=== PATIENT | female | born 1960 | race Caucasian/White ===

== ENCOUNTER → 2016-07-26 | Outpatient (CLI) | payer BC ==
[~2016-07-26] MED LIST: ACET-1256 PO; BACL10TA PO; BIOT1CAP3 PO; BUPR-83 PO; BUSP-8 PO; BUSP15TA70 PO; CALC-393 PO; CHOL1TAB42 PO; CHOLCAP2 PO; CITA10TA4 PO; CITA20TA4 PO; CLR10 PO; CYAN1DRO PO; ERGO500037 PO; HYDR25TA4 PO; LAMO150T32 PO; MULTTAB PO; TIZA4CAP PO; ZINC1CAP PO
== END | disposition home or self-care (01) ==
LOC: C.RDSM 12:49
PROVIDERS: ATTEND Physical Medicine & Rehabilitation Sports Medicine
DX: M18.12 Unilateral primary osteoarthritis of first carpometacarpal joint, left hand (principal)

== ENCOUNTER → 2016-09-04 | Outpatient (CLI) | payer BC ==
[~2016-09-04] MED LIST changes: -CITA10TA4 PO; -CITA20TA4 PO
[2016-09-04 16:55] LABS: BASO % 0.5 %; BASO ABS # 0.03 K/uL (0-0.2); COMPLETE YES; EOS % 4.8 %; HEMATOCRIT 39.3 % (37-47); IG% 0.2 %; LYMPH % 27.8 %; LYMPH ABS # 1.69 K/uL (1.2-3.4); MEAN CELL VOLUME 88.3 fL (80-100); MEAN CORPUSCULAR HEMOGLOBIN 28.5 pg (25-34); MEAN CORPUSCULAR HGB CONC 32.3 g/dl (32-36); MEAN PLATELET VOLUME 11.3 fL (7.4-10.4); MONO % 7.2 %; NEUT % 59.5 %; PLATELET COUNT 323 K/uL (130-400); RED BLOOD COUNT 4.45 M/uL (4.2-5.4); WHITE BLOOD COUNT 6.07 K/uL (4.8-10.8)
[2016-09-04 17:10] LABS: ALKALINE PHOSPHATASE 88 U/L (45-117); ALT/SGPT 17 U/L (12-78); AST/SGOT 12 U/L (15-37); BLOOD UREA NITROGEN 12 mg/dl (7-18); CALCIUM 9.3 mg/dl (8.5-10.1); CARBON DIOXIDE 25 mmol/L (21-32); CHLORIDE 106 mmol/L (98-107); CHOLESTEROL 239 mg/dl (0-200); CHOLESTEROL/HDL RATIO 3.3; CREATININE 0.73 mg/dl (0.60-1.20); GLUCOSE 97 mg/dl (70-99); HDL CHOLESTEROL 72 mg/dl; LDL CHOLESTEROL CALCULATED 135 mg/dl; POTASSIUM 3.8 mmol/L (3.5-5.1); SODIUM 139 mmol/L (136-145); TRIGLYCERIDES 160 mg/dl (0-150); VERY LOW DENSITY LIPOPROT CALC 32 mg/dl
[2016-09-05 07:17] LABS: ESTIMATED AVERAGE GLUCOSE 128 mg/dl; HA1C FLAG Normal (Normal)
--- NOTE | 2016-09-10 11:00 | CODING QUERY MEDICAL NECESSITY ---
SUPPORTING DIAGNOSIS NEEDED A supporting diagnosis is required for the test/procedure performed on this patient in order for us to be reimbursed by the patient's insurance. Please provide a supporting diagnosis for the following test/procedure listed below next to the test name along with your signature. *If there is no additional diagnosis for this patient that would support the following test/procedure please document that below next to the test/procedure. Test(s)/Procedure(s) that require a supporting diagnosis: * VITAMIN D, 25-HYDROXY DIAGNOSIS: Provider Signature: Date: Thank you Joelle Tran [employer] Information Management Once completed, please kindly fax back to [phone] For questions please call [phone]
== END | disposition home or self-care (01) ==
LOC: C.LABBC 12:39
PROVIDERS: ATTEND Family Medicine
DX: F10.20 Alcohol dependence, uncomplicated (principal); Z11.59 Encounter for screening for other viral diseases; R73.9 Hyperglycemia, unspecified

== ENCOUNTER 2016-09-08 10:53 | Emergency (ER) | payer BC ==
[~2016-09-08] VITALS: Ht 167.6 cm; Wt 91.0 kg
[~2016-09-08 10:53] MED LIST changes: -BACL10TA PO; -BUSP15TA70 PO; -CHOLCAP2 PO; -ERGO500037 PO; -HYDR25TA4 PO; -LAMO150T32 PO
[2016-09-08 11:02] VITALS: TEMP 36.9; Ht 167.6 cm; Wt 91.0 kg
[2016-09-08] MEDS ORDERED: LAMO150T32 PO (11:36)
[2016-09-08] MEDS ORDERED: HYDR25TA4 PO (11:36)
[2016-09-08] MEDS ORDERED: BACL10TA PO (11:36)
[2016-09-08] MEDS ORDERED: BUSP15TA70 PO (11:36)
[2016-09-08 11:40] VITALS: O2SAT 96
[2016-09-08 12:07] LABS: HEMATOCRIT 40.8 % (37-47); MEAN CELL VOLUME 88.1 fL (80-100); MEAN CORPUSCULAR HEMOGLOBIN 29.6 pg (25-34); MEAN CORPUSCULAR HGB CONC 33.6 g/dl (32-36); MEAN PLATELET VOLUME 11.9 fL (7.4-10.4); PLATELET COUNT 329 K/uL (130-400); RED BLOOD COUNT 4.63 M/uL (4.2-5.4); WHITE BLOOD COUNT 6.88 K/uL (4.8-10.8)
--- NOTE | 2016-09-08 12:07 | DIAGNOSTIC IMAGING REPORT ---
HEAD WITHOUT CONTRAST (CT) CT DOSE: 537.48 mGy.cm HISTORY: Mental status change neuro symptoms TECHNIQUE: Multiaxial CT images of the head were performed without the use of intravenous contrast. Comparison: 09/18/2010 Findings: The paranasal sinuses and mastoid air cells are clear. The calvarium and skull base are intact. The ventricles and sulci are within normal limits. There is no mass, hematoma, midline shift, or acute infarct. Impression: No acute intracranial abnormality. The above report was generated using voice recognition software. It may contain grammatical, syntax or spelling errors. Electronically signed by: Mook Zapien M.D. 09/08/2016 12:06 PM Dictated Date/Time: 09/08/2016 12:05 PM
[2016-09-08 12:16] LABS: BUN/CREATININE RATIO 20.4 (10-20); CALCIUM 9.5 mg/dl (8.5-10.1); CREATININE 0.66 mg/dl (0.60-1.20); POTASSIUM 4.2 mmol/L (3.5-5.1)
[2016-09-08 12:18] LABS: ALB/GLOB RATIO 1.1 (0.9-2)
[2016-09-08] MEDS ORDERED: ACETAMINOPHEN 500 MG TAB PO STA (12:19)
[2016-09-08 12:20] LABS: INR 0.9 (0.9-1.1); PROTHROMBIN TIME (PATIENT) 9.8 SECONDS (9.0-12.0)
[2016-09-08 12:26] VITALS: BP 157/107; PULSE 71; O2SAT 98
--- NOTE | 2016-09-08 12:39 | EMERGENCY ROOM VISIT NOTE ---
History Report prepared by Joy: Kait Olguin Under the Supervision of: Dr. Sarbjit Coleman D.O. First contact with patient: 12:09 Chief Complaint: NEURO SYMPTOMS Stated Complaint: FACIAL NUMBNESS,DIZZINESS,TINGLING History of Present Illness The patient is a 56 year old female who presents to the Emergency Room with complaints of constant neurological symptoms beginning this morning. The patient states that she woke up this morning and her left hand was twitching uncontrollably and the right hand began twitching shortly after. She reports that she felt fine last night and her symptoms all began after waking up this morning. She complains of tingling in the left hand, left facial tingling, confusion, instability with walking, and difficulty grasping things. The patient denies any numbness. She notes a history of hypertension, laminectomy, nerve impingement, and carpal tunnel. She states that she takes Hydrochlorothiazide for her hypertension. The patient reports that she had a physical 1 week ago that was normal. She notes that walking has been difficult as she is more wobbly than normal. Source of History: patient Onset: this morning Position: other (neuro) Quality: tingling Timing: constant Associated Symptoms: No numbness Note: She complains of tingling in the left hand, left facial tingling, confusion, instability with walking, and difficulty grasping things. Review of Systems See HPI for pertinent positives & negatives. A total of 10 systems reviewed and were otherwise negative. Past Medical & Surgical Medical Problems: (1) Alcohol dependence (2) Borderline personality disorder (3) Diab Sofia Wo Compl, Type Ii Or Unspec Type, Not Uncntrld (4) Esophageal Reflux (5) Mitral valve regurgitation (6) Tobacco Use Disorder Surgical Problems: (1) Bariatric Surgery Status Family History Cancer Diabetes mellitus FHx: lung disease Social History Smoking Status: Current Every Day Smoker Alcohol Use: occasionally Drug Use: none Marital Status: single Occupation Status: employed Current/Historical Medications Scheduled Baclofen (Lioresal), 10 MG PO BID Biotin (Biotin), 5,000 MCG PO DAILY Bupropion (Wellbutrin), 100 MG PO TID Buspirone Hcl (Buspar), 15 MG PO BID Calcium Carbonate (Calcium), 600 MG PO BID Cyanocobalamin (Vitamin B12), 5 ML PO DAILY Hydrochlorothiazide (Hctz), 25 MG PO DAILY Lamotrigine (Lamictal), 150 MG PO DAILY Loratadine (Claritin), 10 MG PO DAILY Multivitamins/Minerals (Mvi With Minerals), 1 TAB PO DAILY Zinc Sulfate (Zinc Sulfate), 220 MG PO DAILY Scheduled PRN Acetaminophen (Tylenol), 1,000 MG PO Q6 PRN for Pain Allergies Coded Allergies: Quinolones (Verified Allergy, Unknown, UNKNOWN, 07/13/15) Sulfa Antibiotics (Unverified Allergy, Unknown, UNKNOWN, 07/13/15) Codeine (Verified Adverse Reaction, Unknown, AGITATION, IRRITABILITY, 07/12) NSAIDs (Verified Adverse Reaction, Unknown, BLEEDING, 07/13/15) Physical Exam Vital Signs Date Time Temp Pulse Resp B/P (MAP) Pulse Ox O2 Delivery O2 Flow Rate FiO2 09/08/16 12:26 71 18 157/107 98 Room Air 09/08/16 11:55 68 09/08/16 11:40 96 Room Air 09/08/16 11:02 36.9 65 18 147/82 94 Room Air Physical Exam VITAL SIGNS: were reviewed as above. GENERAL:Non-toxic in appearance. SKIN: Warm dry and pink. HEAD: Normocephalic and atraumatic. OROPHARYNX: Is clear and moist NECK: Supple without lymphadenopathy or meningismus. LUNGS: clear. HEART: Regular rate and rhythm. ABDOMEN: Soft and nontender. EXTREMITIES: Warm and well perfused. NEUROLOGICALLY: Awake alert and oriented without focal deficit. Cranial nerves 2 -12 are intact. There is no pronator drift. Cerebellar testing is within normal limits. There is no nystagmus. There is no facial droop. Speech is clear. Vision is grossly normal. MUSCULOSKELETAL: Good muscle tone. No evidence of trauma. Medical Decision & Procedures ER Provider Diagnostic Interpretation: CT results as stated below per my review and radiologist interpretation: HEAD WITHOUT CONTRAST (CT) Findings: The paranasal sinuses and mastoid air cells are clear. The calvarium and skull base are intact. The ventricles and sulci are within normal limits. There is no mass, hematoma, midline shift, or acute infarct. Impression: No acute intracranial abnormality. The above report was generated using voice recognition software. It may contain grammatical, syntax or spelling errors. Electronically signed by: Mook Zapien M.D. 09/08/2016 12:06 PM Dictated Date/Time: 09/08/2016 12:05 PM Laboratory Results 09/08/16 11:26 09/08/16 11:26 Test 09/08/16 11:18 09/08/16 11:26 Bedside Glucose 126 mg/dl (70-90) Red Blood Count 4.63 M/uL (4.2-5.4) Mean Corpuscular Volume 88.1 fL (80-100) Mean Corpuscular Hemoglobin 29.6 pg (25-34) Mean Corpuscular Hemoglobin Concent 33.6 g/dl (32-36) RDW Standard Deviation 52.4 fL (36.4-46.3) RDW Coefficient of Variation 16.1 % (11.5-14.5) Mean Platelet Volume 11.9 fL (7.4-10.4) Prothrombin Time 9.8 SECONDS (9.0-12.0) Prothromb Time International Ratio 0.9 (0.9-1.1) Activated Partial Thromboplast Time 25.0 SECONDS (21.0-31.0) Partial Thromboplastin Ratio 1.0 Anion Gap 7.0 mmol/L (3-11) Est Creatinine Clear Calc Drug Dose 106.8 ml/min Estimated GFR () 113.7 Estimated GFR (Non- 98.1 BUN/Creatinine Ratio 20.4 (10-20) Calcium Level 9.5 mg/dl (8.5-10.1) Total Bilirubin 0.3 mg/dl (0.2-1) Aspartate Amino Transf (AST/SGOT) 16 U/L (15-37) Alanine Aminotransferase (ALT/SGPT) 19 U/L (12-78) Alkaline Phosphatase 102 U/L (45-117) Total Protein 7.6 gm/dl (6.4-8.2) Albumin 3.9 gm/dl (3.4-5.0) Globulin 3.7 gm/dl (2.5-4.0) Albumin/Globulin Ratio 1.1 (0.9-2) Laboratory results as stated above per my review. Medications Administered Medications (Trade) Dose Ordered Sig/Kim Route Start Time Stop Time Status Last Admin Dose Admin Acetaminophen (Tylenol Tab) 1,000 mg NOW STAT PO 09/08/16 12:19 09/08/16 12:20 DC 09/08/16 12:25 1,000 MG ECG Indication: weakness Rate (beats per minute): 64 Rhythm: normal sinus Findings: no acute ischemic change, no ectopy ED Course 1209: Previous medical records were reviewed. The patient was evaluated in room A2. A complete history and physical examination was performed. 1219: Tylenol Tab 1000mg PO. 1245: On reevaluation, the patient is doing well. I discussed the results and findings with the patient. She verbalized agreement of the treatment plan. The patient was discharged home. Medical Decision Differential includes acute coronary syndrome, myocardial infarction, CVA, TIA, anemia, infection, pneumonia, UTI, pyelonephritis, poor nutrition, dehydration, electrolyte disturbance,hypoglycemia. Medication Reconciliation: I attest that I have personally reviewed the patient' s current medication list. Patient was found to have a slightly elevated blood pressure due to circumstances. I do not believe that the patient requires hypertension monitoring. This is a 56-year-old female who presents to the ED with a chief complaint of awakening around 7 AM today and having some uncontrollable/involuntary movements of her left hand. She states that it was extending at the wrist. She also reports that she had some tingling of the hand and also a little tingling of her right arm. She reports also some tingling of her left face. She came in for evaluation of this. Her initial blood pressure was 147/82. A complete neuro exam was unremarkable. She has a normal exam as well. Her CBC is normal, CT scan of the brain was negative for acute disease, EKG shows a normal sinus rhythm and a complete metabolic panel was normal. The patient was told the results of the test. She was given Tylenol by mouth for headache related to her head being bumped while she is being placed in the CT scanner. There is no obvious visible abnormalities regarding this. The patient was offered an MRI for further evaluation of her symptoms but she declined this stating she did not feel was necessary. The patient was felt to be stable for discharge and outpatient follow-up. Impression Primary Impression: Paresthesia Scribe Attestation The scribe's documentation has been prepared under my direction and personally reviewed by me in its entirety. I confirm that the note above accurately reflects all work, treatment, procedures, and medical decision making performed by me. Departure Information Dispostion Home / Self-Care Referrals Sonya Ruiz MD (PCP) Forms HOME CARE DOCUMENTATION FORM, IMPORTANT VISIT INFORMATION, WORK / SCHOOL INSTRUCTIONS Patient Instructions My [facility] Additional Instructions Follow-up with your doctor for further care and evaluation in 1-2 days. Return to the emergency department for worsening or new symptoms or any concerns. You have been examined and treated today on an emergency basis only. This is not a substitute for, or an effort to provide, complete comprehensive medical care. It is impossible to recognize and treat all injuries or illnesses in a single emergency department visit. It is therefore important that you follow up closely with your doctor. Call as soon as possible for an appointment.
[2016-09-08] MEDS ORDERED: NORCO 5/325MG HOME PACK PO ONE (13:00)
== END 2016-09-08 13:11 | disposition home or self-care (01) ==
LOC: C.EDB 10:54 → C.EDA 13:11
DX: R20.9 Unspecified disturbances of skin sensation (principal); I10 Essential (primary) hypertension; E11.9 Type 2 diabetes mellitus without complications; K21.9 Gastro-esophageal reflux disease without esophagitis; F10.20 Alcohol dependence, uncomplicated; I34.0 Nonrheumatic mitral (valve) insufficiency; F17.210 Nicotine dependence, cigarettes, uncomplicated; Z80.9 Family history of malignant neoplasm, unspecified; Z83.3 Family history of diabetes mellitus; Z83.6 Family history of other diseases of the respiratory system; Z79.899 Other long term (current) drug therapy

== ENCOUNTER → 2016-09-12 | Outpatient (CLI) | payer BC ==
[~2016-09-12] MED LIST changes: +BACL10TA PO; -BUSP-8 PO; +BUSP15TA70 PO; -CHOL1TAB42 PO; +CHOLCAP2 PO; +ERGO500037 PO; +HYDR25TA4 PO; +LAMO150T32 PO; -TIZA4CAP PO
[2016-09-12 11:20] LABS: URINE APPEARANCE CLEAR (CLEAR); URINE BILIRUBIN NEG (NEG); URINE COLOR YELLOW; URINE NITRITE NEG (NEG); URINE SPECIFIC GRAVITY 1.015 (1.000-1.030); UROBILINOGEN NEG (NEG)
[2016-09-12 11:21] LABS: MANUAL MICROSCOPIC REQUIRED? YES; REVIEW REQ? NO
[2016-09-12 11:35] LABS: URINE BACTERIA 1+ (NEG); URINE RBC 0-4 /hpf (0-4)
[2016-09-16 07:16] LABS: ANTI-CENTROMERE AB <1.0 NEG AI (<1.0 NEG); ANTI-SS-A <1.0 NEG AI (<1.0 NEG); ANTI-SS-B <1.0 NEG AI (<1.0 NEG); DNA ds CRITHIDIA NEGATIVE (NEGATIVE); Sm Antibody <1.0 NEG AI (<1.0 NEG)
== END | disposition home or self-care (01) ==
LOC: C.LAB1850 09:28
PROVIDERS: ATTEND Internal Medicine Rheumatology
DX: R68.2 Dry mouth, unspecified (principal); M25.50 Pain in unspecified joint; M19.041 Primary osteoarthritis, right hand

== ENCOUNTER 2016-11-26 10:58 | Emergency (ER) | payer BC ==
[~2016-11-26] VITALS: Ht 162.6 cm; Wt 90.4 kg
[~2016-11-26 10:58] MED LIST changes: -ERGO500037 PO
[2016-11-26 11:01] VITALS: TEMP 36.8; Ht 162.6 cm; Wt 90.4 kg
[2016-11-26] MEDS ORDERED: ERGO500037 PO (11:28)
--- NOTE | 2016-11-26 11:47 | DIAGNOSTIC IMAGING REPORT ---
CHEST ONE VIEW PORTABLE CLINICAL HISTORY: 56 years-old Female presenting with syncope. TECHNIQUE: Portable upright AP view of the chest was obtained. COMPARISON: 06/25/2015. FINDINGS: Atherosclerosis of aortic arch. Cardiac silhouette normal in size. Lungs and pleural spaces clear. Anterior cervical fusion hardware noted at the base of the neck. IMPRESSION: 1. No acute cardiopulmonary disease. Electronically signed by: Gregory Raya M.D. 11/26/2016 11:46 AM Dictated Date/Time: 11/26/2016 11:45 AM
[2016-11-26] MEDS ORDERED: SODIUM CHLORIDE 0.9% 1000ML 1,000 ML IV STA (11:58)
[2016-11-26 12:31] LABS: BASO % 0.3 %; BASO ABS # 0.04 K/uL (0-0.2); COMPLETE YES; EOS % 0.5 %; HEMATOCRIT 39.7 % (37-47); IG% 0.2 %; LYMPH ABS # 1.58 K/uL (1.2-3.4); MEAN CELL VOLUME 86.7 fL (80-100); MEAN CORPUSCULAR HEMOGLOBIN 29.7 pg (25-34); MEAN CORPUSCULAR HGB CONC 34.3 g/dl (32-36); MEAN PLATELET VOLUME 10.6 fL (7.4-10.4); MONO % 6.3 %; NEUT % 79.7 %; PLATELET COUNT 327 K/uL (130-400); RED BLOOD COUNT 4.58 M/uL (4.2-5.4); WHITE BLOOD COUNT 12.14 K/uL (4.8-10.8)
[2016-11-26] MEDS ORDERED: MoRPHine SULFATE 4 MG/ML 1 ML CARP\\VIAL IV STA (12:33)
[2016-11-26] MEDS ORDERED: ONDANSETRON INJ 2 MG/ML 2 ML VIAL IV STA (12:33)
[2016-11-26 12:59] LABS: ALB/GLOB RATIO 0.9 (0.9-2); BUN/CREATININE RATIO 21.9 (10-20); CREATININE 0.63 mg/dl (0.60-1.20); THYROID STIMULATING HORMONE 0.934 uIu/ml (0.300-4.500)
[2016-11-26 13:02] LABS: POTASSIUM 3.9 mmol/L (3.5-5.1)
[2016-11-26 13:10] LABS: CKMB/CK RATIO 1.6 (0-3.0)
[2016-11-26 13:12] LABS: CALCIUM 9.2 mg/dl (8.5-10.1)
--- NOTE | 2016-11-26 13:14 | DIAGNOSTIC IMAGING REPORT ---
CERVICAL SPINE W/O CLINICAL HISTORY: 56 years-old Female presenting with CHI/MENDEZ/neck pain s/p syncope. TECHNIQUE: Multidetector CT of the cervical spine was performed without the use of intravenous contrast. IV contrast: None. A dose lowering technique was used consistent with the principles of ALARA (as low as reasonably achievable). COMPARISON: 07/13/2015. CT DOSE (mGy.cm): The estimated cumulative dose is 1023.91. FINDINGS: [employer] topogram: Anterior cervical fusion hardware noted. Slight reversal of normal cervical lordosis centered at C4-5. Postsurgical changes of anterior cervical discectomy and fusion of C5-C7. Interbody spacers noted. Partial osseous fusion evident at C5-6. A lesser degree of osseous fusion may be present anteriorly at C6-7. Again demonstrated is minimal anterolisthesis of C7 on T1. Adjacent level degenerative changes noted at C4-5 and C7-T1. No significant osseous spinal canal or neural foraminal narrowing noted. No acute fracture or subluxation. Limited intracranial evaluation within normal limits. Paraspinal soft tissues within normal limits. Lung apices clear. IMPRESSION: Anterior cervical fusion of C5-C7 with incomplete osseous bridging at C6-7. Adjacent level degenerative change at C4-5 and C7-T1. No significant osseous spinal canal or neural foraminal narrowing. Electronically signed by: Gregory Raya M.D. 11/26/2016 1:12 PM Dictated Date/Time: 11/26/2016 1:05 PM
--- NOTE | 2016-11-26 13:14 | DIAGNOSTIC IMAGING REPORT ---
HEAD CT NONCONTRAST CT DOSE: 1023.91 mGy.cm HISTORY: CHI/headache/neck pain s/p syncope TECHNIQUE: Multiaxial CT images of the head were performed without the use of intravenous contrast. Automated exposure control was utilized for this study. A dose lowering technique was utilized adhering to the principles of ALARA. Comparison: Head CT 09/08/2016. Findings: The paranasal sinuses and mastoid air cells are clear. The calvarium and skull base are intact. The ventricles and sulci are within normal limits. There is no mass, hematoma, midline shift, or acute infarct. Nasal bone deformity. Impression: No acute intracranial abnormality. Nasal bone deformity. This is better appreciated on the same day maxillofacial CT. Electronically signed by: Gerber Alonzo M.D. 11/26/2016 1:13 PM Dictated Date/Time: 11/26/2016 1:03 PM
--- NOTE | 2016-11-26 13:16 | DIAGNOSTIC IMAGING REPORT ---
MAXILLOFACIAL CT WITHOUT CONTRAST CLINICAL HISTORY: Syncope. Headache. Head injury. Fall. COMPARISON STUDY: Maxillofacial CT May 29, 2009. TECHNIQUE: A maxillofacial CT was performed without IV contrast. Coronal and sagittal reformats were viewed. A dose lowering technique was utilized adhering to the principles of ALARA. FINDINGS: The globes are intact. There is no retrobulbar hematoma. Minimally displaced right nasal bone fracture is noted. There is a nondisplaced left nasal bone fracture. These fractures are likely acute. There is also an old fracture of the nasal bone. Orbital floors are intact. Alignment of the temporomandibular joints is anatomic. Cervical spine fusion is partially imaged. No skull base fracture is identified. Head CT will be reported separately. IMPRESSION: 1. Acute minimally displaced right nasal bone fracture and acute nondisplaced left nasal bone fracture with associated nasal soft tissue swelling. 2. No additional acute facial fracture. Electronically signed by: Romie Olivas M.D. 11/26/2016 1:14 PM Dictated Date/Time: 11/26/2016 1:08 PM
[2016-11-26 13:34] LABS: URINE APPEARANCE CLEAR (CLEAR); URINE BILIRUBIN NEG (NEG); URINE COLOR YELLOW; URINE EPITHELIAL CELL AUTO >30 /lpf (0-5); URINE NITRITE NEG (NEG); URINE SPECIFIC GRAVITY 1.021 (1.000-1.030); UROBILINOGEN NEG (NEG); ZZUR CULT IF INDIC CLEAN CATCH NO
[2016-11-26 13:38] LABS: MANUAL MICROSCOPIC REQUIRED? NO; REVIEW REQ? NO
--- NOTE | 2016-11-26 15:09 | EMERGENCY ROOM VISIT NOTE ---
ED Visit Note First contact with patient: 11:39 I did evaluate and examine this patient myself. I did guide management for the patient. I agree with the APC's assessment as discussed. Please see the APC's dictation for further details. I did independently review the x-rays, CT scan, 12-lead EKG and blood work. The patient did pass out while on the toilet. She had no prodromal symptoms and simply passed out. Currently she has no symptoms. We will consult the hospitalist for further evaluation.
[2016-11-26 16:22] VITALS: BP 138/85; PULSE 88; O2SAT 93
--- NOTE | 2016-11-26 22:08 | EMERGENCY ROOM VISIT NOTE ---
History First contact with patient: 11:39 Chief Complaint: SYNCOPE Stated Complaint: FELL ON HEAD, MAY HAVE PASSED OUT, NOSE PAIN Nursing Triage Summary: PT stated while sitting on the toilet this morning having a bowel movement the pt fell off her toilet. The pt stated that she woke up on the floor and her nose was bleeding. Pt does not remember falling. Pts nose is swollen with bruising to her cheeks. Pts mouth is bloody on the inside. Pt states she has a headache a 7 out of 10 on pain scale. Pt does have a neurological issue with numbness to left arm. Pt was able to answer questions appropriately and stroke scale was negative. History of Present Illness The patient is a 56 year old female who presents to the Emergency Room with complaints of a syncopal episode with injuries to her face, head and neck after she fell off of her toilet this morning. The patient does recall getting up and going to the bathroom. She was having a bowel movement that she reports was really soft, and does not feel that she was really bearing down. The next thing that the patient recalls is laying in a prone position on the floor with left facial pain, headache and neck pain. The patient does report a history of chronic neck problems. The patient reports that she felt fine last night before going to bed. The patient reports that she has had some sinus congestion for the past 3-4 days with postnasal drip, mild sore throat and irritating cough. She denies any recent chest pain, shortness of breath, chronic headaches or dizziness. At the current time, the patient rates her discomfort an 8 out of 10. She does report feeling thirsty and with mild nausea. Tetanus immunization is up-to-date. Review of Systems HEENT: Denies dizziness, visual problems, hearing loss, tinnitus. Denies difficulty swallowing or oral lesions. PULMONARY: Denies shortness of breath, sputum production or hemoptysis. Otherwise see history of present illness for recent upper respiratory symptoms. CARDIOVASCULAR: Denies chest pain, palpitations, dyspnea on exertion, orthopnea or peripheral edema. GASTROINTESTINAL: Denies preceding diarrhea, constipation, nausea, vomiting, or abdominal pain. GENITOURINARY: Denies dysuria, frequency, urgency or nocturia. NEUROLOGIC: Denies history of epilepsy, CVA, TIA or chronic headaches. MUSCULOSKELETAL: Denies history of joint tenderness/swelling. SKIN: Denies rashes or lesions. PSYCHIATRIC: History of mental illness. ENDOCRINE: history of diabetes. Denies history of thyroid disorders. Past Medical/Surgical History Medical Problems: (1) Alcohol dependence (2) Borderline personality disorder (3) Diab Sofia Wo Compl, Type Ii Or Unspec Type, Not Uncntrld (4) Esophageal Reflux (5) Mitral valve regurgitation (6) Tobacco Use Disorder Surgical Problems: (1) Bariatric Surgery Status Family History Cancer Diabetes mellitus FHx: lung disease Social History Smoking Status: Current Every Day Smoker Alcohol Use: occasionally Drug Use: none Marital Status: single Occupation Status: retired, disabled, student Current/Historical Medications Scheduled Baclofen (Lioresal), 10 MG PO BID Biotin (Biotin), 5,000 MCG PO DAILY Bupropion (Wellbutrin), 100 MG PO TID Buspirone Hcl (Buspar), 15 MG PO BID Calcium Carbonate (Calcium), 600 MG PO BID Cyanocobalamin (Vitamin B12), 5 ML PO DAILY Ergocalciferol (Vitamin D 43340 Unit), 50,000 UNIT PO WK Hydrochlorothiazide (Hctz), 25 MG PO DAILY Lamotrigine (Lamictal), 150 MG PO DAILY Loratadine (Claritin), 10 MG PO DAILY Multivitamins/Minerals (Mvi With Minerals), 1 TAB PO DAILY Zinc Sulfate (Zinc Sulfate), 220 MG PO DAILY Scheduled PRN Acetaminophen (Tylenol), 1,000 MG PO Q6 PRN for Pain Physical Exam Vital Signs Date Time Temp Pulse Resp B/P (MAP) Pulse Ox O2 Delivery O2 Flow Rate FiO2 11/26/16 16:22 88 20 138/85 93 11/26/16 14:45 87 20 154/89 95 Room Air 11/26/16 12:44 88 20 141/107 97 Room Air 11/26/16 12:21 77 161/88 85 159/102 83 140/105 11/26/16 12:20 82 11/26/16 11:01 36.8 102 18 149/91 95 Room Air Physical Exam CONSTITUTIONAL: Healthy and well nourished. Alert and oriented X 3 with positive affect. GCS 15. The patient does not appear in any acute distress. HEENT: Examination shows an abrasion to the left zygomatic region. She has mild tenderness to this region, inferior and superior left orbital program. No subconjunctival hemorrhage, raccoon's eyes or Carrasco sign. No hemotympanum or epistaxis. Pupils equal, round and reactive. EOMs intact without evidence for entrapment. NECK: The patient has generalized tenderness to palpation through the cervical musculature. She has no focal central cervical spine tenderness to palpation or step-offs.. RESPIRATORY: Clear to auscultation bilaterally with no wheezing, crackles, rhonchi or stridor. CARDIOVASCULAR: Regular rate and rhythm with no murmurs, rubs or gallops. GASTROINTESTINAL: Bowel sounds present in all quadrants. Soft and nontender to palpation. MUSCULOSKELETAL: Full range of motion of all joints without discomfort. INTEGUMENTARY: No rash or other significant dermatologic conditions noted. NEUROLOGIC: No focal neurologic deficits noted. Negative pronator drift. Normal fast alternating hand movements. Normal finger to nose test. Medical Decision & Procedures ER Provider Diagnostic Interpretation: My interpretation of an ECG shows a normal sinus rhythm of [address] elevation or ischemic changes. My interpretation of a portable chest x-ray does not show any consolidations, pneumothorax or cardiac prominence. Noncontrast CT of the facial bones, head and cervical spine was bilateral nasal bone fractures without any evidence for skull fractures, intracranial bleed or other acute cervical spine injuries. Radiologist report for facial bone CT is as follows: MAXILLOFACIAL CT WITHOUT CONTRAST CLINICAL HISTORY: Syncope. Headache. Head injury. Fall. COMPARISON STUDY: Maxillofacial CT May 29, 2009. TECHNIQUE: A maxillofacial CT was performed without IV contrast. Coronal and sagittal reformats were viewed. A dose lowering technique was utilized adhering to the principles of ALARA. FINDINGS: The globes are intact. There is no retrobulbar hematoma. Minimally displaced right nasal bone fracture is noted. There is a nondisplaced left nasal bone fracture. These fractures are likely acute. There is also an old fracture of the nasal bone. Orbital floors are intact. Alignment of the temporomandibular joints is anatomic. Cervical spine fusion is partially imaged. No skull base fracture is identified. Head CT will be reported separately. IMPRESSION: 1. Acute minimally displaced right nasal bone fracture and acute nondisplaced left nasal bone fracture with associated nasal soft tissue swelling. 2. No additional acute facial fracture. Laboratory Results 11/26/16 12:10 Red Blood Count 4.58, Mean Corpuscular Volume 86.7, Mean Corpuscular Hemoglobin 29.7, Mean Corpuscular Hemoglobin Concent 34.3, Mean Platelet Volume 10.6, Neutrophils (%) (Auto) 79.7, Lymphocytes (%) (Auto) 13.0, Monocytes (%) (Auto) 6.3, Eosinophils (%) (Auto) 0.5, Basophils (%) (Auto) 0.3, Neutrophils # (Auto) 9.68, Lymphocytes # (Auto) 1.58, Monocytes # (Auto) 0.76, Eosinophils # (Auto) 0.06, Basophils # (Auto) 0.04 11/26/16 12:10 Test 11/26/16 12:10 11/26/16 12:18 11/26/16 12:49 White Blood Count 12.14 K/uL (4.8-10.8) Red Blood Count 4.58 M/uL (4.2-5.4) Hemoglobin 13.6 g/dL (12.0-16.0) Hematocrit 39.7 % (37-47) Mean Corpuscular Volume 86.7 fL (80-100) Mean Corpuscular Hemoglobin 29.7 pg (25-34) Mean Corpuscular Hemoglobin Concent 34.3 g/dl (32-36) Platelet Count 327 K/uL (130-400) Mean Platelet Volume 10.6 fL (7.4-10.4) Neutrophils (%) (Auto) 79.7 % Lymphocytes (%) (Auto) 13.0 % Monocytes (%) (Auto) 6.3 % Eosinophils (%) (Auto) 0.5 % Basophils (%) (Auto) 0.3 % Neutrophils # (Auto) 9.68 K/uL (1.4-6.5) Lymphocytes # (Auto) 1.58 K/uL (1.2-3.4) Monocytes # (Auto) 0.76 K/uL (0.11-0.59) Eosinophils # (Auto) 0.06 K/uL (0-0.5) Basophils # (Auto) 0.04 K/uL (0-0.2) RDW Standard Deviation 51.3 fL (36.4-46.3) RDW Coefficient of Variation 16.2 % (11.5-14.5) Immature Granulocyte % (Auto) 0.2 % Immature Granulocyte # (Auto) 0.02 K/uL (0.00-0.02) Anion Gap 11.0 mmol/L (3-11) Est Creatinine Clear Calc Drug Dose 107.3 ml/min Estimated GFR () 115.4 Estimated GFR (Non- 99.6 BUN/Creatinine Ratio 21.9 (10-20) Calcium Level 9.2 mg/dl (8.5-10.1) Total Bilirubin 0.4 mg/dl (0.2-1) Aspartate Amino Transf (AST/SGOT) 17 U/L (15-37) Alanine Aminotransferase (ALT/SGPT) 20 U/L (12-78) Alkaline Phosphatase 95 U/L (45-117) Total Creatine Kinase 74 U/L (26-192) Creatine Kinase MB 1.2 ng/ml (0.5-3.6) Creatine Kinase MB Ratio 1.6 (0-3.0) Total Protein 7.4 gm/dl (6.4-8.2) Albumin 3.6 gm/dl (3.4-5.0) Globulin 3.8 gm/dl (2.5-4.0) Albumin/Globulin Ratio 0.9 (0.9-2) Thyroid Stimulating Hormone (TSH) 0.934 uIu/ml (0.300-4.500) Bedside Troponin I < 0.030 ng/ml (0-0.045) Urine Color YELLOW Urine Appearance CLEAR (CLEAR) Urine pH 5.0 (4.5-7.5) Urine Specific Bruner 1.021 (1.000-1.030) Urine Protein NEG (NEG) Urine Glucose (UA) NEG (NEG) Urine Ketones 1+ (NEG) Urine Occult Blood NEG (NEG) Urine Nitrite NEG (NEG) Urine Bilirubin NEG (NEG) Urine Urobilinogen NEG (NEG) Urine Leukocyte Esterase NEG (NEG) Urine WBC (Auto) 1-5 /hpf (0-5) Urine RBC (Auto) 0-4 /hpf (0-4) Urine Hyaline Casts (Auto) 5-10 /lpf (0-5) Urine Epithelial Cells (Auto) >30 /lpf (0-5) Urine Bacteria (Auto) NEG (NEG) The above labs were reviewed. The above labs were reviewed. The patient does have a mild leukocytosis with left shift and without bandemia. Bedside troponin , urinalysis, partial renal profile, LFTs are otherwise grossly normal. Patient is mildly hyponatremic at 134. Medications Administered Medications (Trade) Dose Ordered Sig/Kim Route Start Time Stop Time Status Last Admin Dose Admin Sodium Chloride 1,000 ml @ 999 mls/hr Q1H1M STAT IV 11/26/16 11:58 11/26/16 12:58 DC 11/26/16 12:41 999 MLS/HR Morphine Sulfate (MoRPHine SULFATE INJ) 4 mg NOW STAT IV 11/26/16 12:33 11/26/16 12:34 DC 11/26/16 12:42 4 MG Ondansetron HCl (Zofran Inj) 4 mg NOW STAT IV 11/26/16 12:33 11/26/16 12:34 DC 11/26/16 12:41 4 MG Procedure 1. IV hydration: The patient received a liter normal saline bolus 2. IV medications: Morphine 4 mg and Zofran 4 mg IVP ED Course Patient history and physical exam were performed. Nurse's notes were reviewed. Vital signs were reviewed, showing an elevated blood pressure 149/91. Patient is mildly tachycardic at 102 bpm. She is afebrile, and O2 saturation on room air is normal. The patient does not appear in any acute distress. She clinically appears dehydrated. Orthostatic vital signs were marginal as well. IV access was established, and labs were drawn. The patient was hydrated with a liter normal saline, and received IV analgesics and antiemetics as discussed in the previous Procedure section. Review of labs shows a mild leukocytosis with left shift and without bandemia. She is also mildly hyponatremic. Remaining labs are otherwise grossly normal, including troponin. An ECG and portable chest x-ray were normal. CT of the facial bones, head and cervical spine shows mild bilateral nasal bone fractures, otherwise were also normal. The patient reports feeling better with IV morphine and hydration. The case was discussed with Dr. Colin, ED attending physician, who also evaluated the patient, and is concerned regarding her abrupt syncopal episode. He suggested hospitalist evaluation and further cardiac workup. I went back to discuss our concerns with the patient. The patient refused hospitalist evaluation, observation/admission status. The patient reports that she would rather follow up outpatient with cardiology. The patient reports that she did have a normal stress test approximately 3 years ago. I again explained my concern for possible cardiac dysrhythmia or ischemic syncope, and the patient continued to request discharge. The patient was provided contact information for [facility] cardiology, and instructed to call their office tomorrow for urgent follow-up. She was instructed to return to the emergency department for any developing symptoms or recurrent syncope. She was instructed to remain well-hydrated and drink plenty of fluids. She was also instructed to follow-up with ENT with any persistent sinus congestion or difficulty breathing secondary to her nasal bone fractures. Intermittent ice as needed for swelling. The patient was happy with plan of care, and voiced understanding of all discharge instructions. Medical Decision Patient presents to the emergency department for evaluation of injuries after suffering a syncopal episode while sitting on her toilet this morning with a bowel movement. Although vasovagal syncope is suspected, ischemic syncope or other cardiac dysrhythmia cannot be ruled out, and it was suggested that the patient undergo further inpatient evaluation. The patient is refusing hospitalist evaluation, and requested outpatient cardiology follow-up. The patient does not have any ischemic findings on monitor or ECG. She is Dinorah hyponatremic, which I do not feel as her syncope. She has had recent upper respiratory infection, explaining her mild leukocytosis. Her imaging studies at this point are not suggestive of intracranial bleed, CVA, aortic dissection or other acute emergent findings. [place] Drug Monitoring Program Search Results: patient reviewed within database, no issues identified Head Trauma GCS Score: 15 Medication Reconcilliation Current Medication List: was personally reviewed by me Blood Pressure Screening Patient's blood pressure: Normal blood pressure Impression Primary Impression: Nasal bone fractures Additional Impression: Syncope Departure Information Referrals Sonya Ruiz MD (PCP) Patient Instructions My [facility] Problem Qualifiers Primary Impression: Nasal bone fractures Encounter type: initial encounter Fracture type: closed Qualified Codes: S02.2XXA - Fracture of nasal bones, initial encounter for closed fracture Additional Impression: Syncope Syncope type: unspecified Qualified Codes: R55 - Syncope and collapse
== END 2016-11-26 16:23 | disposition home or self-care (01) ==
LOC: C.EDB 11:00 → C.EDC 16:23
DX: S02.2XXA Fracture of nasal bones, initial encounter for closed fracture (principal); W18.11XA Fall from or off toilet without subsequent striking against object, initial encounter; R55 Syncope and collapse; M54.2 Cervicalgia; G89.29 Other chronic pain; F10.20 Alcohol dependence, uncomplicated; F60.3 Borderline personality disorder; E11.9 Type 2 diabetes mellitus without complications; K21.9 Gastro-esophageal reflux disease without esophagitis; I34.0 Nonrheumatic mitral (valve) insufficiency; F17.210 Nicotine dependence, cigarettes, uncomplicated; Z98.84 Bariatric surgery status; Z80.9 Family history of malignant neoplasm, unspecified; Z83.3 Family history of diabetes mellitus; Z79.899 Other long term (current) drug therapy; E87.1 Hypo-osmolality and hyponatremia

== ENCOUNTER → 2016-12-05 | Outpatient (CLI) | payer BC ==
[~2016-12-05] MED LIST changes: -CHOLCAP2 PO; +ERGO500037 PO
== END | disposition home or self-care (01) ==
LOC: C.MAMM 09:06
PROVIDERS: ATTEND Family Medicine
DX: E89.40 Asymptomatic postprocedural ovarian failure (principal); M85.851 Other specified disorders of bone density and structure, right thigh; M85.852 Other specified disorders of bone density and structure, left thigh

== ENCOUNTER → 2017-01-06 | Outpatient (CLI) | payer BC ==
[~2017-01-06] MED LIST changes: +CITA10TA4 PO
--- NOTE | 2017-01-06 16:07 | DIAGNOSTIC IMAGING REPORT ---
MRI OF THE LUMBAR SPINE WITHOUT CONTRAST CLINICAL HISTORY: Worsening low back pain. Lumbar radiculopathy. COMPARISON STUDY: Lumbar spine MRI October 30, 2012 and lumbar spine radiographs February 07, 2015. TECHNIQUE: Utilizing a 1.5 Manisha magnet and dedicated coil, multiplanar, multiecho imaging of the lumbar spine was performed without IV contrast. FINDINGS: For purposes of numbering on this exam, the L5-S1 disc space is assigned to axial image 23 of 25. 7 mm of anterolisthesis of L4 and L5 is unchanged since MRI of July 30, 2012. This is likely on the basis of facet arthrosis. No pars defects are identified by MRI. There is no suspicious marrow replacement. Scattered T1 and T2 hyperintense lesions are unchanged and prior exams and reflect hemangiomas. Conus terminates at the mid L1 level. There is no intracanalicular mass or fluid collection. L1-2: The central canal and neural foramen are patent. L2-3: There is disc bulge with severe facet arthrosis. There is mild narrowing of the central canal, lateral recesses. The neural foramen are patent. L3-4: There is disc bulge with severe facet arthrosis and ligamentous hypertrophy. There is mild to moderate narrowing of the central canal and lateral recesses. The neural foramen are patent. This is unchanged and prior MRI. L4-5: There is anterolisthesis with uncovering of the disc, ligamentous hypertrophy and facet arthrosis result in moderate to severe narrowing of the central canal which is similar to prior MRI. The lateral recesses are mildly narrowed. There is mild bilateral neural foraminal stenosis. L5-S1: There is disc space narrowing with disc bulge with a superimposed left foraminal disc protrusion. The central canal is patent. There is moderate narrowing of the left lateral recess and left neural foramen. The right neural foramen is patent. IMPRESSION: 1. Moderate to severe central canal stenosis at L4-L5 which is similar to MRI October 30, 2012. 2. No change in grade I anterolisthesis of L4 and L5. 3. Moderate multilevel degenerative disc disease and severe multilevel facet arthrosis, as detailed above. Electronically signed by: Romie Olivas M.D. 01/06/2017 4:06 PM Dictated Date/Time: 01/06/2017 3:58 PM
== END | disposition home or self-care (01) ==
LOC: C.MRIBC 14:51
PROVIDERS: ATTEND Physician Assistant Medical
DX: M54.16 Radiculopathy, lumbar region (principal); M48.061 Spinal stenosis, lumbar region without neurogenic claudication; M43.16 Spondylolisthesis, lumbar region; M51.36 Other intervertebral disc degeneration, lumbar region

== ENCOUNTER 2017-02-26 16:47 | Emergency (ER) | payer BC, OTHER ==
[~2017-02-26] VITALS: Ht 165.1 cm; Wt 89.0 kg
[~2017-02-26 16:47] MED LIST changes: -BIOT1CAP3 PO; -CITA10TA4 PO; +CITA20TA4 PO; +LAMO150T PO; -LAMO150T32 PO; -MULTTAB PO
[2017-02-26 17:01] VITALS: TEMP 37.6; Ht 165.1 cm; Wt 89.0 kg
[2017-02-26] MEDS ORDERED: BIOT1CAP3 PO (17:03)
[2017-02-26] MEDS ORDERED: MULTTAB PO (17:03)
[2017-02-26] MEDS ORDERED: HYDROmorphone INJ 1 MG/ML SYR IV STA (17:27)
[2017-02-26] MEDS ORDERED: CYNI1000 IM (17:30)
[2017-02-26] MEDS ORDERED: CHOLCAP5 PO (17:30)
[2017-02-26] MEDS ORDERED: OPTIRAY 320 IV PRN (17:45)
--- NOTE | 2017-02-26 17:49 | EMERGENCY ROOM VISIT NOTE ---
ED Visit Note First contact with patient: 17:15 I have seen and examined this patient with Asif Campos and generally agree with the treatment plan as discussed. Problem List Medical Problems: (1) Alcohol dependence Status: Chronic (2) Borderline personality disorder Status: Chronic (3) Mitral valve regurgitation Status: Chronic Current/Historical Medications Scheduled Biotin (Biotin), 5,000 MCG PO DAILY Bupropion (Wellbutrin), 100 MG PO TID Buspirone Hcl (Buspar), 15 MG PO BID Calcium Carbonate (Calcium), 600 MG PO BID Cholecalciferol (Vitamin D3), 5,000 INTER.UNIT PO 6XWK Citalopram Hydrobromide (Citalopram Hydrobromide), 20 MG PO DAILY Cyanocobalamin (Cyanocobalamin), 1,000 MCG IM WK Ergocalciferol (Vitamin D 02754 Unit), 50,000 INTER.UNIT PO WK Lamotrigine (Lamictal), 150 MG PO DAILY Multivitamins/Minerals (Mvi With Minerals), 1 TAB PO DAILY Scheduled PRN Acetaminophen (Tylenol), 1,000 MG PO Q6H PRN for Pain Loratadine (Claritin), 10 MG PO DAILY PRN for Allergy Symptoms Allergies Coded Allergies: Quinolones (Verified Allergy, Unknown, UNKNOWN, 01/13/17) Sulfa Antibiotics (Unverified Allergy, Unknown, UNKNOWN, 01/13/17) Codeine (Verified Adverse Reaction, Unknown, AGITATION, IRRITABILITY, ) NSAIDs (Verified Adverse Reaction, Unknown, BLEEDING, 01/13/17) Vital Signs Date Time Temp Pulse Resp B/P (MAP) Pulse Ox O2 Delivery O2 Flow Rate FiO2 02/26/17 17:01 37.6 107 17 179/90 97 Room Air Laboratory Results Test 02/26/17 17:27 Departure Information Referrals Sonya Ruiz MD (PCP) Patient Instructions My [facility]
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
[2017-02-26 18:10] LABS: BASO % 0.2 %; BASO ABS # 0.02 K/uL (0-0.2); EOS % 0.7 %; EOS ABS # 0.06 K/uL (0-0.5); HEMATOCRIT 35.1 % (37-47); HEMOGLOBIN 11.9 g/dL (12.0-16.0); IG# 0.01 K/uL (0.00-0.02); LYMPH % 14.1 %; LYMPH ABS # 1.26 K/uL (1.2-3.4); MEAN CELL VOLUME 86.2 fL (80-100); MEAN CORPUSCULAR HEMOGLOBIN 29.2 pg (25-34); MEAN CORPUSCULAR HGB CONC 33.9 g/dl (32-36); MEAN PLATELET VOLUME 9.7 fL (7.4-10.4); MONO % 9.2 %; MONO ABS # 0.82 K/uL (0.11-0.59); NEUT % 75.7 %; NEUT ABS # 6.76 K/uL (1.4-6.5); PLATELET COUNT 337 K/uL (130-400); RED CELL DISTRIBUTION WIDTH CV 18.3 % (11.5-14.5); RED CELL DISTRIBUTION WIDTH SD 56.7 fL (36.4-46.3); WHITE BLOOD COUNT 8.93 K/uL (4.8-10.8)
[2017-02-26 18:20] LABS: ISTAT CREATININE 0.7 mg/dl (0.6-1.3); ISTAT IONIZED CALCIUM 1.15 mmol/l (1.12-1.32); ISTAT POTASSIUM 3.9 mEq/L (3.3-5.0)
[2017-02-26 18:38] LABS: CALCIUM 8.7 mg/dl (8.5-10.1); CREATININE 0.73 mg/dl (0.60-1.20); POTASSIUM 3.8 mmol/L (3.5-5.1)
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
[2017-02-26] MEDS ORDERED: HYDROmorphone INJ 0.5 MG/0.5 ML SYR IV STA (19:43)
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
[2017-02-26] MEDS ORDERED: LIDODERM (LIDOCAINE) PATCH 5% TD STA (20:13)
[2017-02-26] MEDS ORDERED: OXYCODONE IR HOME PACK PO STA (20:13)
[2017-02-26] MEDS ORDERED: OXYC-90 PO (20:23)
[2017-02-26] MEDS ORDERED: NF656 TD (20:23)
[2017-02-26 20:48] VITALS: BP 193/101; PULSE 69; O2SAT 99
[2017-03-11] MEDS ORDERED: VNTHFA/IN INH (13:44)
[2017-03-11] MEDS ORDERED: BENZ100C84 PO (13:44)
[2017-03-11] MEDS ORDERED: AMOX500T3 PO (13:44)
== END 2017-02-26 20:45 | disposition home or self-care (01) ==
LOC: C.EDB 16:49 → C.EDD 20:45
DX: S22.41XA Multiple fractures of ribs, right side, initial encounter for closed fracture (principal); V43.52XA Car driver injured in collision with other type car in traffic accident, initial encounter; Y93.89 Activity, other specified; Y99.8 Other external cause status; E11.9 Type 2 diabetes mellitus without complications; F17.200 Nicotine dependence, unspecified, uncomplicated; Z98.84 Bariatric surgery status; Z83.3 Family history of diabetes mellitus

== ENCOUNTER 2017-03-31 12:07 | Emergency (ER) | payer BC ==
[~2017-03-31] VITALS: Ht 163.8 cm; Wt 87.0 kg
[~2017-03-31 12:07] MED LIST changes: +AMOX500T3 PO; -BACL10TA PO; +BENZ100C84 PO; +BIOT1CAP3 PO; +CHOLCAP5 PO; -CYAN1DRO PO; +CYNI1000 IM; -HYDR25TA4 PO; +MULTTAB PO; +NF656 TD; +OXYC1TAB3 PO; +VNTHFA/IN INH; -ZINC1CAP PO
[2017-03-31 12:29] VITALS: TEMP 37; Ht 163.8 cm; Wt 87.0 kg
[2017-03-31] MEDS ORDERED: THIAMINE HCL 100 MG TAB PO STA (12:36)
[2017-03-31] MEDS ORDERED: CLONIDINE HCL 0.3 MG/24 HR TRANSDERM SYS TD STA (12:36)
[2017-03-31] MEDS ORDERED: PYRIDOXINE HCL 50 MG TAB PO STA (12:36)
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
[2017-03-31 13:38] LABS: BASO % 0.5 %; BASO ABS # 0.04 K/uL (0-0.2); HEMATOCRIT 35.6 % (37-47); HEMOGLOBIN 11.9 g/dL (12.0-16.0); IG# 0.05 K/uL (0.00-0.02); LYMPH % 29.6 %; LYMPH ABS # 2.24 K/uL (1.2-3.4); MEAN CELL VOLUME 82.2 fL (80-100); MEAN CORPUSCULAR HEMOGLOBIN 27.5 pg (25-34); MEAN CORPUSCULAR HGB CONC 33.4 g/dl (32-36); MONO % 9.4 %; MONO ABS # 0.71 K/uL (0.11-0.59); NEUT % 59.8 %; NEUT ABS # 4.54 K/uL (1.4-6.5); PLATELET COUNT 292 K/uL (130-400); RED CELL DISTRIBUTION WIDTH CV 18.2 % (11.5-14.5); RED CELL DISTRIBUTION WIDTH SD 55.6 fL (36.4-46.3); WHITE BLOOD COUNT 7.58 K/uL (4.8-10.8)
[2017-03-31] MEDS ORDERED: ACETAMINOPHEN 500 MG TAB PO STA (13:43)
[2017-03-31] MEDS ORDERED: ALBUTEROL 0.083% NEBU SOLN 3 ML VIAL INH STA (13:43)
[2017-03-31] MEDS ORDERED: LIDODERM (LIDOCAINE) PATCH 5% TD STA (13:43)
[2017-03-31] MEDS ORDERED: OXYCODONE HCL IR 5 MG TAB (IMMEDIATE RELEASE) PO STA (13:43)
[2017-03-31 14:02] LABS: ALBUMIN 3.6 gm/dl (3.4-5.0); CALCIUM 8.6 mg/dl (8.5-10.1); CREATININE 0.6 mg/dl (0.60-1.20); POTASSIUM 4.2 mmol/L (3.5-5.1)
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
[2017-03-31] MEDS ORDERED: OXYCODONE IR HOME PACK PO STA (15:47)
[2017-03-31 16:17] VITALS: BP 170/89; PULSE 87; O2SAT 96
== END 2017-03-31 16:18 | disposition home or self-care (01) ==
LOC: C.EDB 12:10 → C.EDA 16:18
DX: F10.20 Alcohol dependence, uncomplicated (principal); R45.851 Suicidal ideations; E11.9 Type 2 diabetes mellitus without complications; F17.200 Nicotine dependence, unspecified, uncomplicated; Z98.84 Bariatric surgery status; Z83.3 Family history of diabetes mellitus

== ENCOUNTER 2017-10-04 19:53 | Emergency (ER) | payer BC ==
[~2017-10-04] VITALS: Ht 165.1 cm; Wt 89.7 kg
[~2017-10-04 19:53] MED LIST changes: -AMOX500T3 PO; -BENZ100C84 PO; -NF656 TD; -OXYC1TAB3 PO; -VNTHFA/IN INH
[2017-10-04 19:55] VITALS: TEMP 36.9; Ht 165.1 cm; Wt 89.7 kg
[2017-10-04 20:08] VITALS: O2SAT 95
[2017-10-04 20:39] LABS: CALCIUM 8.7 mg/dl (8.5-10.1); CREATININE 0.61 mg/dl (0.60-1.20); POTASSIUM 3.4 mmol/L (3.5-5.1)
[2017-10-04] MEDS ORDERED: LXP/20 PO (23:15)
[2017-10-04] MEDS ORDERED: HYDR25TA5 PO (23:15)
[2017-10-04] MEDS ORDERED: QUET5TAB PO (23:15)
--- NOTE | 2017-10-04 23:22 | EMERGENCY ROOM VISIT NOTE ---
History First contact with patient: 19:55 Chief Complaint: ALCOHOL OVERDOSE Stated Complaint: ETOH History of Present Illness The patient is a 57 year old female who presents to the Emergency Room brought in for alcohol intoxication. The patient's neighbor looked into her window and saw her on the ground. The patient states that she just drank alcohol today and lay down. She did not fall. She denies any headache, neck pain or any trauma. She has no chest pain, shortness of breath or abdominal pain. She is not vomiting. She denies any suicidal ideation. History is limited due to alcohol intoxication. Review of Systems See HPI for pertinent positives & negatives. A total of 10 systems reviewed and were otherwise negative. Past Medical/Surgical History Medical Problems: (1) Alcohol dependence (2) Borderline personality disorder (3) Diab Sofia Wo Compl, Type Ii Or Unspec Type, Not Uncntrld (4) Esophageal Reflux (5) Mitral valve regurgitation (6) Tobacco Use Disorder Surgical Problems: (1) Bariatric Surgery Status Family History Cancer Diabetes mellitus FHx: lung disease Social History Smoking Status: Current Every Day Smoker Alcohol Use: occasionally Drug Use: none Marital Status: single Occupation Status: retired, disabled, student Current/Historical Medications Scheduled Biotin (Biotin), 5,000 MCG PO DAILY Bupropion (Wellbutrin), 100 MG PO TID Buspirone Hcl (Buspar), 15 MG PO BID Calcium Carbonate (Calcium), 600 MG PO BID Cholecalciferol (Vitamin D3), 5,000 INTER.UNIT PO 6XWK Cyanocobalamin (Cyanocobalamin), 1,000 MCG IM MONTHLY Ergocalciferol (Vitamin D 23909 Unit), 50,000 INTER.UNIT PO WK Escitalopram Oxalate (Escitalopram Oxalate), 20 MG PO DAILY Hydrochlorothiazide (Hydrochlorothiazide), 25 MG PO DAILY Lamotrigine (Lamictal), 150 MG PO QAM Multivitamins/Minerals (Mvi With Minerals), 1 TAB PO DAILY Quetiapine Fumarate (Seroquel), 50 MG PO BID Scheduled PRN Acetaminophen (Tylenol), 1,000 MG PO Q6H PRN for Pain Loratadine (Claritin), 10 MG PO DAILY PRN for Allergy Symptoms Physical Exam Vital Signs Date Time Temp Pulse Resp B/P (MAP) Pulse Ox O2 Delivery O2 Flow Rate FiO2 10/04/17 22:59 79 10/04/17 22:10 84 16 117/85 97 Nasal Cannula 2.0 10/04/17 20:08 95 Nasal Cannula 2.0 10/04/17 20:06 85 Room Air 10/04/17 19:55 36.9 75 14 130/97 95 Room Air Physical Exam The physical exam is limited due to the patient's condition. Constitutional: Vital signs reviewed. Eyes: Pupils are equal round reactive to light. Conjunctiva are noninjected. ENT: Mucous membranes are dry. Neck supple without meningeal signs. Respiratory: Clear to auscultation bilaterally. Breath sounds are equal bilaterally. Cardiovascular: Regular rate and rhythm. No murmurs, rubs or gallops. GI: Soft, nondistended and nontender. Bowel sounds are present. Musculoskeletal: No peripheral edema. No evidence of trauma. Integumentary: No rashes, petechiae or purpura. Neurological: The patient is awake and alert. She moves all extremities. She appears intoxicated. Psychiatric: Unable to assess. Medical Decision & Procedures Laboratory Results 10/04/17 20:13 Test 10/04/17 20:13 Anion Gap 12.0 mmol/L (3-11) Est Creatinine Clear Calc Drug Dose 111.2 ml/min Estimated GFR () 115.8 Estimated GFR (Non- 99.9 BUN/Creatinine Ratio 14.2 (10-20) Calcium Level 8.7 mg/dl (8.5-10.1) Ethyl Alcohol mg/dL 352.0 mg/dl (0-3) Laboratory results as reviewed by me. ED Course 1954: The patient was evaluated in room C10. A complete history and physical exam was performed. 2255: I checked on the patient she is sober now. She states that no one can pick her up at this time, but she can take a cab. She has no physical complaints at this time. We will try an ambulatory trial at this time and see if she can be discharged. Medical Decision This is a 57-year-old female who presents with altered mental status. Differential diagnosis includes alcohol intoxication, alcohol abuse, metabolic derangement, illicit drug use. I did perform a limited focused review of portions of the patient's old chart on the electronic medical record. The patient was seen here in March for desire for detox. She was referred for outpatient rehabilitation. I did evaluate the patient as noted above. She states she is intoxicated. She drank alcohol today. She denies any trauma. The patient was placed on a continuous environmental monitoring technician. I did order and review the patient's blood work as noted in the electronic medical record. Her alcohol is above 300. We did observe her here in the emergency department. On reexamination she is awake and alert and states that she feels sober. She has a longtime drinker and so her metabolism alcohol is faster than others. She was able to ambulate. She has no complaints. She is not suicidal or homicidal. She does wish to go home. Safe transportation was arranged and the patient was discharged in good condition. Medication Reconcilliation Current Medication List: was personally reviewed by me Blood Pressure Screening Patient's blood pressure: Normal blood pressure Impression Primary Impression: Alcohol use with intoxication Departure Information Dispostion Home / Self-Care Condition GOOD Referrals Sonya Ruiz MD (PCP) Patient Instructions My [facility]
[2017-10-05 01:02] LABS: BASO % 0.8 %; BASO ABS # 0.04 K/uL (0-0.2); EOS % 2.6 %; EOS ABS # 0.14 K/uL (0-0.5); HEMOGLOBIN 11.9 g/dL (12.0-16.0); LYMPH % 44.4 %; LYMPH ABS # 2.36 K/uL (1.2-3.4); MEAN CELL VOLUME 82.9 fL (80-100); MEAN CORPUSCULAR HEMOGLOBIN 27.4 pg (25-34); MEAN CORPUSCULAR HGB CONC 33.1 g/dl (32-36); MEAN PLATELET VOLUME 10.2 fL (7.4-10.4); MONO % 7.5 %; NEUT % 44.7 %; NEUT ABS # 2.37 K/uL (1.4-6.5); PLATELET COUNT 225 K/uL (130-400); RED CELL DISTRIBUTION WIDTH CV 17.5 % (11.5-14.5); RED CELL DISTRIBUTION WIDTH SD 53.5 fL (36.4-46.3); WHITE BLOOD COUNT 5.31 K/uL (4.8-10.8)
[2017-10-05 01:33] LABS: ALBUMIN 3.2 gm/dl (3.4-5.0); CALCIUM 8.5 mg/dl (8.5-10.1); CREATININE 0.7 mg/dl (0.60-1.20); POTASSIUM 3.4 mmol/L (3.5-5.1); TOTAL PROTEIN 6.2 gm/dl (6.4-8.2)
--- NOTE | 2017-10-05 06:24 | EMERGENCY ROOM VISIT NOTE ---
ED Visit Note First contact with patient: 00:37 57 yr old female brought in for etoh overdose. Initially evaluated by Dr Colin who signed her out to me awaiting sobering up. She on my evaluation states she would like to talk to Mental Health due to worsening depression. Admits the Etoh was done to drown her sorrows but denies it was suicide attempt. Admtis worsening depression due to her son's relationship issues. Denies other drug use. Denies recent attempt to harm self. Admits previous admissions to psych. Has outpatient counselling as well. Given level of intoxication I did not feel she was yet medically clear. She is requesting I check etoh and given it has been several hours I agreed to this along with adding on full psych labs. Patient sleeping throughout night without further issue. Signed out to Dr Coleman awaiting Mental health evaluation. During this time she has made no suicidal statement to me nor act of furtherance.
--- NOTE | 2017-10-05 08:20 | EMERGENCY ROOM VISIT NOTE ---
ED Visit Note This is a 57-year-old female who was signed out to me awaiting mental health evaluation. The mental health services evaluated the patient and did not feel inpatient evaluation was necessary. She was felt to be stable for discharge.
[2017-10-05 08:36] VITALS: BP 127/88; PULSE 76; O2SAT 98
== END 2017-10-05 08:36 | disposition home or self-care (01) ==
LOC: EDBD 19:53 → C.EDC 19:54 → C.EDA 10-05 08:36
DX: F10.129 Alcohol abuse with intoxication, unspecified (principal); F32.9 Major depressive disorder, single episode, unspecified; F60.3 Borderline personality disorder; F17.200 Nicotine dependence, unspecified, uncomplicated; Z86.39 Personal history of other endocrine, nutritional and metabolic disease; Y90.8 Blood alcohol level of 240 mg/100 ml or more

== ENCOUNTER 2018-10-05 05:53 | Inpatient (IN) ==
--- NOTE | 2018-09-29 14:17 | PAT Medication Instructions ---
Medication Instructions Date of Service September 29, 2018 Home Medications bupropion HCl 100 mg tablet 100 mg PO TID calcium carbonate 600 mg calcium (1,500 mg) tablet 600 mg PO QAM disulfiram 500 mg tablet 500 mg PO QAM hydrochlorothiazide 25 mg tablet 25 mg PO QAM quetiapine 50 mg tablet 50 mg PO QPM cholecalciferol (vitamin D3) [Vitamin D3] 5,000 unit PO QAM cyanocobalamin (vitamin B-12) 1,000 mcg IM MONTHLY biotin 1,000 mcg PO QAM diphenhydramine HCl [Benadryl] 25 mg PO TID PRN fluticasone propionate [Flonase Allergy Relief] 1 spray INTRANASAL QAM Continue as directed cyanocobalamin (vitamin B-12) 1,000 mcg IM MONTHLY STOP taking 2 weeks before surgery (or as soon as possible if surgery is within 2 weeks) biotin 1,000 mcg PO QAM DO NOT take the morning of surgery calcium carbonate 600 mg calcium (1,500 mg) tablet 600 mg PO QAM disulfiram 500 mg tablet 500 mg PO QAM (unless prescribing doctor says otherwise) hydrochlorothiazide 25 mg tablet 25 mg PO QAM cholecalciferol (vitamin D3) [Vitamin D3] 5,000 unit PO QAM diphenhydramine HCl [Benadryl] 25 mg PO TID PRN Take morning of surgery With a small sip of water, OTHERWISE NOTHING TO EAT OR DRINK AFTER MIDNIGHT: bupropion HCl 100 mg tablet 100 mg PO TID fluticasone propionate [Flonase Allergy Relief] 1 spray INTRANASAL QAM Take evening before surgery bupropion HCl 100 mg tablet 100 mg PO TID quetiapine 50 mg tablet 50 mg PO QPM diphenhydramine HCl [Benadryl] 25 mg PO TID PRN (if needed) Other Notes If you have any questions please call us at [phone] or [phone] or [phone] or [phone]
--- NOTE | 2018-09-30 11:09 | Anesthesiology Consultation ---
Date of Service September 30, 2018 Assessment & Plan (1) Encounter for pre-operative examination: - Check BSG AM DOS - Patient anxious RE: post-op pain control. States that with previous surgeries when morphine used initially, poor pain control but better response when dilaudid had been used. Surgeon was made aware of patient's concerns. - Disulfiram instructions: hx ETOH abuse/dependence on disulfiram. Discussed with Dr. Frausto- recommend patient hold AM DOS unless otherwise advised by prescriber (patient made aware). Chart Review Chart Review: Acceptable Risk for Surgery and Patient seen in Pre Admission Testing Teaching & Discussion Pre-Anesthesia Teaching/Discussion Notes: Instructed NPO after midnight before surgery,except medications with 15 cc of water. Medication instructions provided according to the PAT guidelines. History Surgery Operation Date: 10/05/18 12:45 Proposed Procedures p Posterior Lumbar Decompression and Fusion L2-S1, Possible Interbody Fusion, Spinal Cord Monitoring - David Weir, DO Height/Weight Height: 5 ft 5 in Weight: 85.5 kg Allergies Allergy/AdvReac Type Severity Reaction Status Date / Time Sulfa (Sulfonamide Allergy Unknown unknown Verified 09/30/18 12:24 Antibiotics) reaction codeine AdvReac Unknown agitation, Verified 09/30/18 12:24 irritability levofloxacin [From Levaquin] AdvReac Unknown tendon Verified 09/30/18 12:24 tearing NSAIDS (Non-Steroidal AdvReac Unknown advised to Verified 09/30/18 12:24 Anti-Inflamma avoid s/p gastric bypass Medications Home Medications Medication Instructions Recorded Confirmed Last Taken bupropion HCl 100 mg tablet 100 mg PO TID 07/06/18 09/28/18 08/10/18 calcium carbonate 600 mg calcium 600 mg PO QAM 07/06/18 09/28/18 08/10/18 (1,500 mg) tablet disulfiram 500 mg tablet 500 mg PO QAM 07/06/18 09/28/18 08/04/18 hydrochlorothiazide 25 mg tablet 25 mg PO QAM 07/06/18 09/28/18 08/10/18 quetiapine 50 mg tablet 50 mg PO QPM 07/06/18 09/28/18 08/10/18 cholecalciferol (vitamin D3) 5,000 unit PO QAM 08/11/18 09/28/18 08/10/18 [Vitamin D3] cyanocobalamin (vitamin B-12) 1,000 mcg IM MONTHLY 08/11/18 09/28/18 06/12/18 biotin 1,000 mcg PO QAM 09/28/18 09/28/18 Unknown diphenhydramine HCl [Benadryl] 25 mg PO TID PRN 09/28/18 09/28/18 Unknown fluticasone propionate [Flonase 1 spray INTRANASAL QAM 09/28/18 09/28/18 Unknown Allergy Relief] Past Medical History Medical History Anxiety Depression Hx of diabetes mellitus diet controlled/no meds since gastric bypass Hypertension Lumbar herniated disc L2-L5 Mixed connective tissue disease nonspecific "mild, lupus-like" Numbness B/L; L>R LE/foot r/t back Post traumatic stress disorder Spinal stenosis at L4-L5 level Urinary incontinence, urge chronic Exercise / Class Metabolic Activity III < 4 Walking/Shop/Light housework (uses cane PRN) Past Family History Family History Father Family history of diabetes mellitus Past Surgical History Surgical History History of carpal tunnel surgery of left wrist History of carpal tunnel surgery of right wrist History of colonoscopy History of gastric bypass Hx of abdominal surgery repair mesenteric vein Hx of cervical spine surgery Hx of exploratory laparotomy Hx of hysterectomy, total Hx of nasal septoplasty Hx of ovarian cystectomy Hx of shoulder surgery left Past Anesthesia History No Hx of Anesthesia Complications and No Family Hx of Anesthesia Complications History of PONV No Hx of PONV and No Hx of Motion Sickness Social History Smoking Status: Current every day smoker tobacco type: cigarettes Smoking cigarettes per day: 20 (total use x 30 years) Do You Dip or Chew Tobacco: No Hx Alcohol Use: No Alcohol Intake Frequency Comment: LAST ETOH 07/2018; HX ETOH ABUSE PER RECORDS- ON DISULFIRAM Hx Substance Use: Yes ("WHEN I CAN") substance use type: marijuana (last marijuana use (inhalation): 08/2018) Review of Systems Patient denies chest pain, shortness of breath, reflux, cough, wheezing, palpitations. Physical Exam Vital Signs VITALS BP 140/87 P 75 TEMP 98.8 SP02 96%RA RESP 16 PHYSICAL Full neck and c-spine range of motion. Full TMJ range of motion. TMD 3 finger breaths Mallampati Score 2 Dentition: missing molars, cap on right lower side Lungs: clear throughout to auscultation Cardiac: regular rate and rhythm, I-II/ systolic murmur Spine: normal Carotid arteries: negative bruit Extremities: no edema Testing Laboratory Results PT 10.1 Seconds (9.0-12.0) 09/30/18 11:29 INR 1.0 (0.9-1.1) 09/30/18 11:29 APTT 24.2 Seconds (21.0-31.0) 09/30/18 11:29 Urine Color Yellow 09/30/18 11:29 Urine Appearance Cloudy (Clear) A 09/30/18 11:29 Urine pH 5.0 (4.5-7.5) 09/30/18 11:29 Ur Specific [place] 1.013 (1.000-1.030) 09/30/18 11:29 Urine Protein Negative (Negative) 09/30/18 11:29 Urine Glucose (UA) Negative (Negative) 09/30/18 11:29 Urine Ketones Negative (Negative) 09/30/18 11:29 Urine Nitrite Negative (Negative) 09/30/18 11:29 Ur Leukocyte Esterase Negative (Negative) 09/30/18 11:29 Urine WBC (Auto) 1-5 /hpf (0-5) 09/30/18 11:29 Urine RBC (Auto) 0-4 /hpf (0-4) 09/30/18 11:29 U Hyaline Cast (Auto) 1-5 /lpf (0-5) 09/30/18 11:29 U Epithel Cells (Auto) >30 /lpf (0-5) H 09/30/18 11:29 Urine Bacteria (Auto) 1+ (Negative) H 09/30/18 11:29 Blood Type O Positive 09/30/18 11:29 Antibody Screen NEGATIVE 09/30/18 11:29 *Surgeon made aware of abnormal UA* 08/11/18 WBC 7.0 H/H 13.1/37.6 PLATELETS 322 SODIUM 136 POTASSIUM 3.7 CHLORIDE 100 CO2 22 BUN 12 CREATININE 0.64 GLUCOSE 70 Electrocardiogram Date: 08/11/18 NSR with sinus arrhythmia at 90bpm. NS TWA anterolateral leads. Questionable change in QRS axis compared to 02/2017 EKG per cardio. Chest X-Ray Date: 08/11/18 Findings: + NAD Echocardiogram Date: 05/04/15 EF 60-65%. No RWMA. Mild TR. Mildly dilated ascending aorta. Grade I DD. RVSP 30-40mmhg.
[2018-09-30 13:27] LABS: Appearance Urine Cloudy (Clear); Bacteria Urine Automated 1+ (Negative); Bilirubin Urine Negative (Negative); Blood Urine Negative (Negative); Color Urine Yellow; Epithelial Cell Urine Auto >30 /lpf (0-5); Glucose Urine UA Negative (Negative); Ketones Urine Negative (Negative); Leukocyte Esterase Urine Negative (Negative); Nitrite Urine Negative (Negative); Protein Urine Negative (Negative); RBC Urine Automated 0-4 /hpf (0-4); Specific Gravity Urine 1.013 (1.000-1.030); Urobilinogen Urine Negative (Negative)
[2018-09-30 13:33] LABS: Partial Thromboplastin Ratio 0.9; Partial Thromboplastin Time 24.2 Seconds (21.0-31.0); Prothrombin Time 10.1 Seconds (9.0-12.0)
[2018-10-05] MEDS ORDERED: CEFAZOLIN 2000MG 2,000 MG/15 ML SYR IV SCH (06:00)
[2018-10-05] MEDS ORDERED: LR 15ML/HR IV SCH (06:00)
[2018-10-05] MEDS ORDERED: BACITRACIN INJ 50,000 UNIT VIAL ONE (06:52)
[2018-10-05] MEDS ORDERED: BUPIVACAINE/EPINEPHRINE 0.5% MPF 1:200,000 30 ML VIAL ONE (06:52)
[2018-10-05] MEDS ORDERED: NEOSTIGMINE METHYLSULFATE 1 MG/ML 10ML VIAL ONE (07:14)
[2018-10-05] MEDS ORDERED: MIDAZOLAM HCL 1 MG/ML 2ML VIAL ONE (07:14)
[2018-10-05] MEDS ORDERED: DEXAMETHASONE SOD INJ 4 MG/ML VIAL ONE (07:14)
[2018-10-05] MEDS ORDERED: GLYCOPYRROLATE 0.2 MG/ML VIAL ONE (07:14)
[2018-10-05] MEDS ORDERED: ONDANSETRON INJ 2 MG/ML 2 ML VIAL ONE (07:14)
[2018-10-05] MEDS ORDERED: PROPOFOL IV EMULSION 10 MG/ML 20 ML VIAL IV ONE (07:14)
[2018-10-05] MEDS ORDERED: fentaNYL citrate 100 MCG/2 ML VIAL ONE ×2 (07:14)
[2018-10-05] MEDS ORDERED: LIDOCAINE HCL 2% 2 ML VIAL/AMP(20MG/ML) INFIL ONE (07:14)
[2018-10-05] MEDS ORDERED: HYDROmorphone INJ 2 MG/ML SYR/VIAL ONE (07:15)
--- NOTE | 2018-10-05 07:29 | History & Physical Bridge Note ---
Date of Service October 05, 2018 History & Physical Bridge Note I have examined the patient, reviewed the History & Physical and in the interval since the performance of the History & Physical I have noted the following changes of clinical significance: no changes noted
--- NOTE | 2018-10-05 07:30 | History & Physical Report ---
Date of Service October 05, 2018 Assessment & Plan (1) Spinal stenosis, lumbar region with neurogenic claudication: Posterior lumbar decompression and fusion L2-S1 possible interbody fusion Present on Admission?: Yes History of Present Illness Chief Complaint: Back and bilateral leg pain Primary Care Provider: Sonya Ruiz MD This is a 58-year-old female presents with chronic persistent back and bilateral leg pain. After failing extensive course of nonoperative care she is here for surgical intervention. Allergies Allergy/AdvReac Type Severity Reaction Status Date / Time Sulfa (Sulfonamide Allergy Unknown unknown Verified 10/05/18 06:05 Antibiotics) reaction codeine AdvReac Unknown agitation, Verified 10/05/18 06:05 irritability levofloxacin [From Levaquin] AdvReac Unknown tendon Verified 10/05/18 06:05 tearing NSAIDS (Non-Steroidal AdvReac Unknown advised to Verified 10/05/18 06:05 Anti-Inflamma avoid s/p gastric bypass Home Medications Home Medications Medication Instructions Recorded Confirmed Type bupropion HCl 100 mg tablet 100 mg PO TID 07/06/18 10/05/18 History calcium carbonate 600 mg calcium 600 mg PO QAM 07/06/18 10/05/18 History (1,500 mg) tablet disulfiram 500 mg tablet 500 mg PO QAM 07/06/18 10/05/18 History hydrochlorothiazide 25 mg tablet 25 mg PO QAM 07/06/18 10/05/18 History quetiapine 50 mg tablet 50 mg PO QPM 07/06/18 10/05/18 History cholecalciferol (vitamin D3) 5,000 unit PO QAM 08/11/18 10/05/18 History [Vitamin D3] cyanocobalamin (vitamin B-12) 1,000 mcg IM MONTHLY 08/11/18 10/05/18 History biotin 1,000 mcg PO QAM 09/28/18 10/05/18 History diphenhydramine HCl [Benadryl] 25 mg PO TID PRN 09/28/18 10/05/18 History fluticasone propionate [Flonase 1 spray INTRANASAL QAM 09/28/18 10/05/18 History Allergy Relief] amitriptyline 25 mg tablet 25 mg PO DAILY 10/02/18 10/05/18 History Past Med/Surg History Family History Father Family history of diabetes mellitus Social History Communication Ability: Effective Beliefs That Will Affect Care: None marital status: single Current Living Situation: Alone Feels Safe at Home: Yes Safety Concerns: Feels Safe At This Time Smoking Status: Current every day smoker Tobacco Type: cigarettes ; packs per day: 1 ; Cigarettes Per Day: 20 (total use x 30 years) ; Do You Dip or Chew Tobacco: No ; Second Hand Exposure: No ; Hx Alcohol Use: No Hx Substance Use: Yes ("WHEN I CAN") substance use type: marijuana (last marijuana use (inhalation): 08/2018) Physical Exam Physical Exam: Patient is alert and oriented neurologically intact. Results & Data Vital Signs (Past 12 Hours) Vital Signs Temp Pulse Resp BP Pulse Ox 10/05/18 06:12 37.1 C 92 H 20 147/92 H 97
[2018-10-05] MEDS ORDERED: ONDANSETRON INJ 2 MG/ML 2 ML VIAL IV PRN (07:43)
[2018-10-05] MEDS ORDERED: ePHEDrine sulfate 50 MG/ML AMP IV PRN (07:43)
[2018-10-05] MEDS ORDERED: ATROPINE SULFATE 0.1 MG/ML 10ML SYR IV PRN (07:43)
[2018-10-05] MEDS ORDERED: FLOSEAL HEMOSTATIC MATRIX 10ML TOP ONE (10:38)
--- NOTE | 2018-10-05 10:44 | Fluoroscopy Report ---
FL lumbar spine 2-3V CLINICAL HISTORY: L2-S1 PSFfusion COMPARISON STUDY: None FLUOROSCOPY TIME: 28 seconds NUMBER OF FLUOROSCOPIC IMAGES: 4 FINDINGS: Image intensifier support for a lumbar laminectomy and fusion. This extends from L2 through S1. Disc spaces are present at L4-L5 and L5-S1. IMPRESSION: Image intensifier support for an L2-S1 lumbar laminectomy and fusion. The above report was generated using voice recognition software. It may contain grammatical, syntax or spelling errors. Electronically signed by: Mook Zapien M.D. 10/05/2018 10:43 AM
--- NOTE | 2018-10-05 11:01 | Operative Report ---
Post Operative Report Pre & Post Diagnosis Operation Date: 10/05/18 07:45 Pre-Op Diagnosis: Spondylolisthesis, [place] Region Post-Op Diagnosis: Spondylolisthesis, [place] Region Procedure Operation Date: 10/05/18 07:45 Actual Procedure #1 lumbar decompression with bilateral medial facetectomies foraminotomies L1-L2 3 L3-4 L4-5 L5-S1. #2 posterior spinal fusion L2-3 L3-4 L4-5 L5-S1. #3 placement posterior segmental instrumentation L2-S1 bilaterally. #4 interbody fusion L4-5 and L5-S1. #5 placement of peek cage 11 x 22 mm at L4-5 and 9 x 22 mm at L5-S1 per #6 placement of local autograft in the posterior lateral gutters. #7 placement infuse collagen sponge bone mass graft in the posterior lateral gutters L2-S1 bilaterally and ostial amp in the interbody spaces at L4-5 L5-S1. Surgeon David Weir, [employer] None Estimated Blood Loss 250 Findings See Below Patient is 5 foot 5 inches tall weighing over 86 kg with a BMI in excess of 31. Patient's significant body habitus did create significant technical difficulty with exposure retraction and decompression adding at least 25% increase in operative time. Specimens None Indications This is a 58-year-old female presents with above-mentioned diagnosis after failing extensive course of nonoperative care she is here for the above- mentioned procedure. Description of Procedure Patient was met with identified and informed consent obtained. Patient was then taken to the operative suite underwent intubation placed in a prone position on the Lefty table on top of the Mirza frame. All bony prominences well-padded eyes inspected to ensure no external pressure placed upon the peer at this point the lumbar spine was prepped and draped in the normal sterile fashion. Sharp dissection with the assistance of Bovie cautery was performed down to and exposing the lamina and transverse processes of L 2 L3-L4-L5 and the sacral ala bilaterally. From a caudal to cephalad fashion complete laminectomy of L5 L4 L3 L2 and partial laminectomy of L ones was performed including bilateral medial facetectomies and foraminotomies addressing severe stenosis. Pedicle screws were then placed in L2 L3-L4-L5 and S1 bilaterally with assistance of fluoroscopy and appropriate size sergio placed. By way of a transforaminal approach on the left complete discectomy of L5-S1 was performed in plate graded to subcortical being bone and a 9 x 22 mm peek cage filled with osteo-amp bone graft tapped in position. Then proceeded to L4-[address] of a trans- foraminal approach on the left complete discectomy was performed in plate graded to subcortical being bone and a 11 x 22 mm peek cage filled with osteo-amp bone graft tapped in position. The rods were then locked into final position bilaterally. A cross-link was locked in position. Transverse processes of L2 L3-L4-L5 and the sacral ala bur to subcortical being bone. Infuse collagen sponge mass graft local autograft was placed in the posterior lateral gutters. 15 round WADE drain inserted. The incision was then closed with 1 Vicryl in the fascia 2-0 Vicryl substantially and 4-0 Monocryl for final skin closure. Steri- Strip sterile dressings placed. Patient will continue to PACU stable condition. Please note spinal cord monitoring was utilized that procedure no changes noted. I attest to the content of the Intraoperative Record and any orders documented therein. Any exceptions are noted below.
[2018-10-05] MEDS: HYDROmorphone INJ 2 MG/ML SYR/VIAL IV PRN ×6 (11:14→11:39)
[2018-10-05] MEDS ORDERED: ONDANSETRON 4 MG TAB PO PRN (12:32)
[2018-10-05] MEDS ORDERED: PROMETHAZINE HCL 12.5 MG in SODIUM CHLORIDE 0.9% 50 ML IV PRN (12:32)
[2018-10-05] MEDS ORDERED: METOCLOPRAMIDE HCL INJ 5 MG/ML 2 ML VIAL IV PRN (12:32)
[2018-10-05] MEDS ORDERED: NALOXONE HCL 0.4 MG/1 ML VIAL/CARP IV PRN (12:32)
[2018-10-05] MEDS ORDERED: BISACODYL 10 MG SUPP PR PRN (12:32)
[2018-10-05] MEDS ORDERED: ACETAMINOPHEN 1,000 MG/100 ML VIAL IV PRN (12:32)
[2018-10-05] MEDS ORDERED: ACETAMINOPHEN 500 MG TAB PO PRN (12:32)
[2018-10-05] MEDS ORDERED: ALUMINUM/MAGNESIUM SUSP 30 ML UDC PO PRN (12:32)
[2018-10-05] MEDS ORDERED: MAGNESIUM HYDROXIDE SUSP 30 ML UDC PO PRN (12:32)
[2018-10-05] MEDS ORDERED: DO NOT ADMINISTER FLU VACCINE PRN (12:32)
[2018-10-05] MEDS ORDERED: LORazepam 0.5 MG/1 ML VIAL IV PRN (12:32)
[2018-10-05] MEDS ORDERED: DO NOT ADMINISTER PNEUMOCOCCAL VACCINE PRN (12:32)
[2018-10-05] MEDS ORDERED: SOD PHOSPHATE/SOD BIPHOSPHATE ENEMA 132 ML BTL PR PRN (12:32)
[2018-10-05] MEDS ORDERED: FAMOTIDINE 20 MG TAB PO PRN (12:32)
[2018-10-05] MEDS: LACTATED RINGER'S 1,000 ML IV SCH ×2 (12:46→18:47)
[2018-10-05] MEDS: buPROPion HCl 100 MG TABLET PO SCH ×2 (13:38→20:35)
[2018-10-05] MEDS: OXYCODONE HCL IR 5 MG TAB (IMMEDIATE RELEASE) PO PRN ×3 (15:02→23:20)
[2018-10-05] MEDS: CEFAZOLIN 2000MG 2,000 MG/15 ML SYR IV SCH ×2 (15:18→23:20)
--- NOTE | 2018-10-05 16:02 | Anesthesiology Progress Note ---
Date of Service October 05, 2018 Anesthesia Post Procedure Vital Signs Vital Signs: Temp Pulse Pulse Pulse Pulse Resp BP 10/05/18 15:13 36.6 C 91 H 18 10/05/18 14:18 94 H 17 10/05/18 13:16 77 18 10/05/18 12:48 83 17 10/05/18 12:10 37.0 C 87 16 10/05/18 12:05 77 14 100/65 10/05/18 12:00 36.5 C 86 14 108/69 10/05/18 11:55 87 14 118/65 10/05/18 11:50 76 14 110/75 10/05/18 11:45 76 14 115/67 10/05/18 11:40 75 14 117/68 10/05/18 11:35 73 14 110/76 10/05/18 11:31 88 18 115/76 10/05/18 11:30 83 13 10/05/18 11:25 79 11 L 131/79 10/05/18 11:20 89 19 122/82 10/05/18 11:15 93 H 14 127/85 10/05/18 11:10 97 H 18 135/94 10/05/18 11:08 37.2 C 99 H 100 H 15 117/75 10/05/18 11:07 96 H 20 10/05/18 06:12 37.1 C 92 H 20 BP BP Pulse Ox 10/05/18 15:13 111/70 97 10/05/18 14:18 105/69 98 10/05/18 13:16 132/85 100 10/05/18 12:48 129/77 100 10/05/18 12:10 109/72 98 10/05/18 12:05 99 10/05/18 12:00 99 10/05/18 11:55 99 10/05/18 11:50 100 10/05/18 11:45 100 10/05/18 11:40 100 10/05/18 11:35 100 10/05/18 11:31 100 10/05/18 11:30 79 L 10/05/18 11:25 100 10/05/18 11:20 100 10/05/18 11:15 100 10/05/18 11:10 100 10/05/18 11:08 117/75 100 10/05/18 11:07 97 10/05/18 06:12 147/92 H 97 Pain Intensity Back: Pain Intensity: 7 Transfer of Care Handoff Completed per policy Notes Mental Status: alert / awake / arousable Patient Amnestic to Procedure: Yes Nausea / Vomiting: adequately controlled Pain: adequately controlled Airway Patency, RR, SpO2: stable & adequate BP & HR: stable & adequate Hydration State: stable & adequate Anesthetic Complications: no major complications apparent and Pt Satisfied with anesthetic care
[2018-10-05] MEDS: NICOTINE 14 MG/24 HR PATCH TD SCH (16:55)
[2018-10-05] MEDS: ONDANSETRON INJ 2 MG/ML 2 ML VIAL IV PRN (18:46)
[2018-10-05] MEDS: DOCUSATE SODIUM/SENNA 50/8.6MG TAB PO SCH (20:35)
[2018-10-05] MEDS: QUETIAPINE FUMARATE 25 MG TABLET PO SCH (20:35)
[2018-10-05] MEDS: LORazepam 0.5 MG TAB PO PRN (23:23)
[2018-10-06] MEDS: OXYCODONE HCL IR 5 MG TAB (IMMEDIATE RELEASE) PO PRN ×4 (03:57→21:05)
[2018-10-06] MEDS: POLYETHYLENE (MIRALAX) 17 GM PACK PO SCH ×4 (05:33→23:41)
[2018-10-06 06:25] LABS: Basophils # (auto) 0.01 K/uL (0-0.2); Basophils % (auto) 0.1 %; Eosinophils # (auto) 0.03 K/uL (0-0.5); Eosinophils % (auto) 0.4 %; Hematocrit (blood only) 25.7 % (37-47); Hemoglobin 8.7 g/dL (12.0-16.0); Immature Granulocytes # (auto) 0.02 K/uL (0.00-0.02); Immature Granulocytes % (auto) 0.3 %; Lymphocytes # (auto) 1.15 K/uL (1.2-3.4); Lymphocytes % (auto) 16.2 %; Mean Corpuscular Hgb Conc 33.9 g/dL (32-36); Mean Corpuscular Volume 87.1 fL (80-100); Mean Platelet Volume 10.3 fL (7.4-10.4); Monocytes # (auto) 0.56 K/uL (0.11-0.59); Monocytes % (auto) 7.9 %; Neutrophils # (auto) 5.31 K/uL (1.4-6.5); Neutrophils % (auto) 75.1 %; Platelet Count 164 K/uL (130-400); RDW Coefficient of Variation 18.1 % (11.5-14.5); RDW Standard Deviation 58.2 fL (36.4-46.3); Red Blood Count 2.95 M/uL (4.2-5.4); White Blood Count 7.08 K/uL (4.8-10.8)
[2018-10-06 06:54] LABS: BUN Creatinine Ratio 6.7 (10-20); Calcium 8.3 mg/dl (8.5-10.1); Creatinine Clr Calc Pharmacy 95.3 ml/min; Est GFR (African American) 110.4; Est GFR (Non-African American) 95.3; Potassium 3.4 mmol/L (3.5-5.1)
[2018-10-06] MEDS: hydroCHLOROthiazide 25 MG TAB PO SCH (08:24)
[2018-10-06] MEDS: CALCIUM CARBONATE 1250MG TAB PO SCH (08:24)
[2018-10-06] MEDS: buPROPion HCl 100 MG TABLET PO SCH ×3 (08:24→20:55)
[2018-10-06] MEDS: NICOTINE 14 MG/24 HR PATCH TD SCH (08:25)
[2018-10-06] MEDS: CHOLECALCIFEROL 1,000 UNITS TAB PO SCH (08:25)
[2018-10-06] MEDS: AMITRIPTYLINE HCL 25 MG TAB PO SCH (08:25)
[2018-10-06] MEDS: FLUTICASONE PROPIONATE NA SPR 16 GM BTL SCH (08:26)
--- NOTE | 2018-10-06 09:22 | Orthopedic Progress Note ---
Date of Service October 06, 2018 Assessment & Plan (1) Spinal stenosis, lumbar region with neurogenic claudication: At this time will initiate physical therapy monitor her WADE output anticipate discharge in the next few days possibly with home health versus rehab. Present on Admission?: Yes Subjective Patient's back pain is controlled leg pain markedly improved. Physical Exam Physical Exam: Patient is good strength testing appears comfortable. Results & Data Vital Signs (Past 12 Hours) Vital Signs Temp Pulse Resp BP Pulse Ox 10/06/18 07:17 37.3 C 76 16 107/65 96 10/06/18 03:17 37.2 C 86 16 127/75 96 10/05/18 23:00 37.2 C 76 16 122/76 94
[2018-10-06] MEDS: TRAMADOL HCL 50 MG TABLET PO PRN ×2 (10:26→23:47)
[2018-10-06] MEDS: ONDANSETRON INJ 2 MG/ML 2 ML VIAL IV PRN (13:15)
[2018-10-06] MEDS: HYDROmorphone INJ 0.5 MG/0.5 ML SYR IV PRN (13:20)
[2018-10-06] MEDS: DOCUSATE SODIUM/SENNA 50/8.6MG TAB PO SCH (20:55)
[2018-10-06] MEDS: QUETIAPINE FUMARATE 25 MG TABLET PO SCH (20:56)
[2018-10-07] MEDS: OXYCODONE HCL IR 5 MG TAB (IMMEDIATE RELEASE) PO PRN ×5 (01:44→23:25)
[2018-10-07] MEDS: POLYETHYLENE (MIRALAX) 17 GM PACK PO SCH ×4 (05:44→23:25)
[2018-10-07] MEDS: FLUTICASONE PROPIONATE NA SPR 16 GM BTL SCH (07:07)
[2018-10-07] MEDS: hydroCHLOROthiazide 25 MG TAB PO SCH (07:07)
[2018-10-07] MEDS: AMITRIPTYLINE HCL 25 MG TAB PO SCH (07:07)
[2018-10-07] MEDS: buPROPion HCl 100 MG TABLET PO SCH ×3 (07:07→20:25)
[2018-10-07] MEDS: CALCIUM CARBONATE 1250MG TAB PO SCH (07:07)
[2018-10-07] MEDS: CHOLECALCIFEROL 1,000 UNITS TAB PO SCH (07:07)
[2018-10-07] MEDS: NICOTINE 14 MG/24 HR PATCH TD SCH (07:08)
--- NOTE | 2018-10-07 10:54 | Orthopedic Progress Note ---
Date of Service October 07, 2018 Assessment & Plan (1) Spinal stenosis, lumbar region with neurogenic claudication: At this time we will continue physical therapy anticipate discharge to rehab facility tomorrow. Present on Admission?: Yes Subjective Patient's back pain is controlled leg symptoms improved. Physical Exam Physical Exam: On exam she is good strength testing appears comfortable. Results & Data Vital Signs (Past 12 Hours) Vital Signs Temp Pulse Pulse Resp BP BP Pulse Ox 10/07/18 07:55 36.8 C 77 16 104/68 97 10/07/18 06:06 36.9 C 73 16 107/73 97 10/06/18 22:59 36.8 C 78 16 122/60 96
[2018-10-07] MEDS: HYDROmorphone INJ 0.5 MG/0.5 ML SYR IV PRN (13:37)
[2018-10-07] MEDS: DOCUSATE SODIUM/SENNA 50/8.6MG TAB PO SCH (20:24)
[2018-10-07] MEDS: QUETIAPINE FUMARATE 25 MG TABLET PO SCH (20:25)
[2018-10-08] MEDS: LORazepam 0.5 MG TAB PO PRN (00:28)
[2018-10-08] MEDS: OXYCODONE HCL IR 5 MG TAB (IMMEDIATE RELEASE) PO PRN ×4 (04:11→21:15)
[2018-10-08] MEDS ORDERED: Nursing to Pharmacy Communication ONE (04:22)
--- NOTE | 2018-10-08 08:23 | Orthopedic Progress Note ---
Date of Service October 08, 2018 Assessment & Plan (1) Spinal stenosis, lumbar region with neurogenic claudication: At this time we are waiting for approval for rehab. She will continue with physical therapy today most likely change her dressing today and DC tomorrow. Present on Admission?: Yes Subjective Patient is steadily improving. Still having significant back pain. She is tolerating physical therapy relatively well. Physical Exam Physical Exam: On exam she has good strength testing. Results & Data Vital Signs (Past 12 Hours) Vital Signs Temp Pulse Resp BP Pulse Ox 10/08/18 06:30 37.4 C 79 16 105/61 95 10/07/18 23:26 37.3 C 79 16 107/72 95
[2018-10-08] MEDS: FLUTICASONE PROPIONATE NA SPR 16 GM BTL SCH (08:27)
[2018-10-08] MEDS: AMITRIPTYLINE HCL 25 MG TAB PO SCH (08:28)
[2018-10-08] MEDS: CHOLECALCIFEROL 1,000 UNITS TAB PO SCH (08:28)
[2018-10-08] MEDS: HYDROmorphone INJ 0.5 MG/0.5 ML SYR IV PRN ×2 (08:28→23:32)
[2018-10-08] MEDS: CALCIUM CARBONATE 1250MG TAB PO SCH (08:28)
[2018-10-08] MEDS: hydroCHLOROthiazide 25 MG TAB PO SCH (08:28)
[2018-10-08] MEDS: buPROPion HCl 100 MG TABLET PO SCH ×3 (08:28→20:31)
[2018-10-08] MEDS: NICOTINE 14 MG/24 HR PATCH TD SCH (08:28)
[2018-10-08] MEDS: ONDANSETRON INJ 2 MG/ML 2 ML VIAL IV PRN (14:01)
[2018-10-08] MEDS: DOCUSATE SODIUM/SENNA 50/8.6MG TAB PO SCH ×2 (20:30→20:33)
[2018-10-08] MEDS: QUETIAPINE FUMARATE 25 MG TABLET PO SCH (20:31)
[2018-10-09] MEDS: buPROPion HCl 100 MG TABLET PO SCH ×3 (08:31→20:23)
[2018-10-09] MEDS: CALCIUM CARBONATE 1250MG TAB PO SCH (08:31)
[2018-10-09] MEDS: hydroCHLOROthiazide 25 MG TAB PO SCH (08:31)
[2018-10-09] MEDS: AMITRIPTYLINE HCL 25 MG TAB PO SCH (08:31)
[2018-10-09] MEDS: FLUTICASONE PROPIONATE NA SPR 16 GM BTL SCH (08:32)
[2018-10-09] MEDS: CHOLECALCIFEROL 1,000 UNITS TAB PO SCH (08:32)
[2018-10-09] MEDS: NICOTINE 14 MG/24 HR PATCH TD SCH (08:32)
[2018-10-09] MEDS: OXYCODONE HCL IR 5 MG TAB (IMMEDIATE RELEASE) PO PRN ×4 (08:34→20:29)
[2018-10-09] MEDS: LORazepam 0.5 MG TAB PO PRN ×2 (12:38→20:29)
--- NOTE | 2018-10-09 14:41 | Discharge Summary ---
Date of Service October 09, 2018 Admission HPI Per Admitting Provider This is a 58-year-old female presents with chronic persistent back and bilateral leg pain. After failing extensive course of nonoperative care she is here for surgical intervention. Principal Diagnosis Lumbar spinal stenosis with neurogenic claudication Discharge Data Allergies Allergy/AdvReac Type Severity Reaction Status Date / Time Sulfa (Sulfonamide Allergy Unknown unknown Verified 10/05/18 06:05 Antibiotics) reaction codeine AdvReac Unknown agitation, Verified 10/05/18 06:05 irritability levofloxacin [From Levaquin] AdvReac Unknown tendon Verified 10/05/18 06:05 tearing NSAIDS (Non-Steroidal AdvReac Unknown advised to Verified 10/05/18 06:05 Anti-Inflamma avoid s/p gastric bypass Consultations 10/05/18 12:32 Consult Case Management - Discharge Planning Routine Procedures Performed Operation Date: 10/05/18 07:45 Actual Procedures p L2-S1 Posterior Lumbar Decompression and Fusion, Interbody Fusion L4-L5, L5- S1, Spinal Cord Monitoring(Not Applicable) - David Weir DO Ordered Studies 10/05/18 07:45 FL fluoroscopy <1hr Routine FL lumbar spine 2-3V Routine Hospital Course (1) Spinal stenosis, lumbar region with neurogenic claudication: Patient underwent lumbar decompression fusion tolerated this well was taken to orthopedic for postoperative. Postop day #1 she was up and ambulating progressed throughout the week WADE drain decreasing appropriately. Her pain steadily becoming more tolerable. Subsequently she was discharged to rehab. Discharge orders instructions from the chart for further review. Total Time Total Time Spent Total Time Spent (In Minutes): 30 minutes Discharge Plan Discharge Items Patient Disposition: Transfer Inpatient Rehab Fac Reason For Visit: Spondylolisthesis, [place] Discharge Diagnosis: Lumbar spinal stenosis with neurogenic claudication Discharge Goals: Improve function Activity: Per 'Additional Instructions' section Non-emergency contact: Primary Care Provider Call non-emergency contact if: you have any medication questions Follow-up/Referrals: Sonya Ruiz MD [Primary Care Provider] - Diet: Regular Addtl Provider Instructions: ACTIVITY RECOMMENDATIONS: SELF CARE INSTRUCTIONS AFTER THORACIC/LUMBAR FUSIONS 1. You may walk to your tolerance. It is good exercise for your legs and back. Expect some back and intermittent leg aches and pains. 2. You may perform "counter-top" level activities (make a sandwich, shonda with a project, etc.). 3. No bending or lifting of more than 10 pounds or back twisting of any nature (roll like a log when turning in bed). 4. You may ride in a car for 20-30 minutes at a time. No driving until after your first visit with your doctor. 5. Frequent changes of position and restricting sitting to 30 minutes at a time will help limit the amount of back spasms and stiffness you may experience. 6. You may discontinue the use of ambulatory aids (cane, crutches, etc.) once your strength and confidence allow. 7. You may medical lab tech instructor the shower and let water strike your incision when you arrive home at least once daily. Do not take a tub bath, sit in a hot tub or go into a swimming pool until after your first recheck in the office. SPECIAL CARE INSTRUCTIONS: VERY IMPORTANT TO READ AND REVIEW A. Your surgical incision has been closed with a cosmetic suture under the skin that will dissolve in about 6 weeks. In 14 days, you can use a pair of clean scissors and cut the suture that is left outside of the skin at the ends of your incision. 1. The small skin tapes can be removed 7 days after surgery if they have not fallen off by that point. 2. You may keep the wound open to air as much as possible to promote healing after post-op day number 5 unless told otherwise by your doctor. 3. If you think the wound looks like it is becoming infected (redness or worsening drainage) and/or you are experiencing fever, chill or worsening back pain and muscle spasms, contact the office so that we may evaluate you as soon as possible. B. Complications are uncommon, but please contact us if you have any signs or symptoms of: 1. wound infection (fever higher than 102.5 degrees F, redness, separation of wound, drainage, or increasing pain from the incision) 2. blood clots in legs (pain, swelling, redness and warmth in legs) 3. urinary tract infection (fever higher than 102.5 degrees F, burning upon urination or increased frequency of urination) 4. nerve problems (inability to walk on your toes or heels, numbness, loss of bowel or bladder control) 5. any other symptoms that concern you C. Please call the office at if you have any concerns or questions about your operation or recovery. D. No smoking! Smoking drastically decreases the chance of a solid fusion. E. Do not take any anti-inflammatory medications (Indocin, Advil, Motrin, Aspirin, Naprosyn, etc.) as these may inhibit the chance of a solid fusion. Tylenol is okay to take for pain. MANAGING PAIN AFTER SPINAL SURGERY 1. Narcotic medication is intended for short-term use and will be provided for surgical pain. Surgical pain usually lasts for a period of 4-6 weeks. Narcotic medication includes Percocet, Vicodin, Darvocet, Tylenol #3 or Lortab. 2. Longer-term pain is more appropriately treated with non-narcotic medication such as Tylenol ES. 3. Muscle spasm is not appropriately treated with narcotics. Muscle relaxers such as Soma, Flexeril or Skelaxin can be used along with Tylenol ES. 4. Remember that we all live with some "aches and pains". This is not unusual or uncommon after an injury or as we get older. a. Back pain is expected and may include muscle spasms for 4 to 6 weeks after surgery. The pain should gradually improve. If the pain worsens for no apparent reason, please contact the office. b. Intermittent leg pain may also be experienced and should not be concerned about unless it worsens for no apparent reason. If so, please contact the office. 5. We will provide appropriate medication within the normal guidelines of their prescribed use. We will also be very cautious and aware of potential abuse and extended duration of patients' medication needs. a. Pain medications are for your comfort and to assist with sleep and rest so that the tissue can heal. They are not provided in order to return to normal activity and should not be used through the day. To do so or worsening pain at night can result from ongoing tissue damage and development of tolerance to the prescribed medicine. 6. Please allow 2-3 days to process refills. Prescriptions will not be mailed but must be picked up at the office. FOLLOW UP VISIT: Keep your scheduled follow-up appointment. Any questions, please call the office at . Prescriptions: New tramadol 50 mg Tablet 50 mg PO Q4H PRN (Reason: Pain, Moderate) Qty: 30 RF: 0 oxycodone 5 mg Tablet 5 mg PO Q4H PRN (Reason: Pain, Severe) Qty: 30 RF: 0 Continued bupropion HCl 100 mg tablet 100 mg PO TID RF: 0 calcium carbonate [Calcium 600] 600 mg calcium (1,500 mg) tablet 600 mg PO QAM RF: 0 disulfiram 500 mg tablet 500 mg PO QAM RF: 0 quetiapine [Seroquel] 50 mg tablet 50 mg PO QPM RF: 0 hydrochlorothiazide 25 mg tablet 25 mg PO QAM RF: 0 amitriptyline 25 mg tablet 25 mg PO DAILY RF: 0 cholecalciferol (vitamin D3) [Vitamin D3] 5,000 unit Tablet 5,000 unit PO QAM RF: 0 cyanocobalamin (vitamin B-12) 1,000 mcg/mL Kit 1,000 mcg IM MONTHLY RF: 0 biotin 1,000 mcg Tablet,Chewable 1,000 mcg PO QAM RF: 0 diphenhydramine HCl [Benadryl] 25 mg Capsule 25 mg PO TID PRN (Reason: ALLEGIES) RF: 0 fluticasone propionate [Flonase Allergy Relief] 50 mcg/actuation [place],Suspension 1 spray INTRANASAL QAM RF: 0 Stand-Alone Forms: [facility] Discharge Orders: Discharge Order (Routine); Ordered 10/09/18 Ordered By: David Weir Skilled Items Patient informed of condition?: Yes DNR: No Discharge Level of Care: Acute rehab Communicable Disease: No Discharge Prognosis: Improving Admission Data Admit Date/Time: 10/05/18 11:05 Attending Provider: David Weir Admit Provider: David Weir Primary Care Provider: Sonya Ruiz Service: Surgical Services
[2018-10-09] MEDS: DOCUSATE SODIUM/SENNA 50/8.6MG TAB PO SCH (20:24)
[2018-10-09] MEDS: QUETIAPINE FUMARATE 25 MG TABLET PO SCH (20:24)
[2018-10-09] MEDS: TRAMADOL HCL 50 MG TABLET PO PRN (23:48)
[2018-10-10] MEDS: OXYCODONE HCL IR 5 MG TAB (IMMEDIATE RELEASE) PO PRN ×2 (08:36→13:45)
[2018-10-10] MEDS: CHOLECALCIFEROL 1,000 UNITS TAB PO SCH (08:37)
[2018-10-10] MEDS: NICOTINE 14 MG/24 HR PATCH TD SCH (08:37)
[2018-10-10] MEDS: FLUTICASONE PROPIONATE NA SPR 16 GM BTL SCH (08:37)
[2018-10-10] MEDS: hydroCHLOROthiazide 25 MG TAB PO SCH (08:38)
[2018-10-10] MEDS: buPROPion HCl 100 MG TABLET PO SCH ×2 (08:38→13:46)
[2018-10-10] MEDS: AMITRIPTYLINE HCL 25 MG TAB PO SCH (08:38)
[2018-10-10] MEDS: CALCIUM CARBONATE 1250MG TAB PO SCH (08:38)
--- NOTE | 2018-10-10 10:19 | Orthopedic Progress Note ---
Date of Service October 10, 2018 Assessment & Plan (1) Lumbar back pain with radiculopathy affecting right lower extremity: This time are hoping for discharge today to rehab versus home. She may shower today. Present on Admission?: Yes Subjective Back pain is improving. Leg symptoms improved. Physical Exam Physical Exam: Patient is good strength testing appears comfortable. Results & Data Vital Signs (Past 12 Hours) Vital Signs Temp Pulse Pulse Resp BP BP Pulse Ox 10/10/18 07:13 36.9 C 73 16 98/62 L 98 10/09/18 23:27 37.1 C 73 14 107/69 98
[2018-10-10] MEDS: HYDROmorphone INJ 0.5 MG/0.5 ML SYR IV PRN (10:44)
== END 2018-10-10 14:38 | disposition home health service (06) | DRG 454 ==
LOC: ASU 05:53 → 3E 11:05

== ENCOUNTER 2019-03-11 15:06 | Observation (INO) ==
[2019-03-11 16:12] LABS: Basophils # (auto) 0.03 K/uL (0-0.2); Basophils % (auto) 0.7 %; Eosinophils # (auto) 0.23 K/uL (0-0.5); Eosinophils % (auto) 5.3 %; Hematocrit (blood only) 32.3 % (37-47); Hemoglobin 10.4 g/dL (12.0-16.0); Immature Granulocytes # (auto) 0.01 K/uL (0.00-0.02); Immature Granulocytes % (auto) 0.2 %; Lymphocytes # (auto) 1.05 K/uL (1.2-3.4); Lymphocytes % (auto) 24.2 %; Mean Corpuscular Hemoglobin 25.9 pg (25-34); Mean Corpuscular Hgb Conc 32.2 g/dL (32-36); Mean Corpuscular Volume 80.5 fL (80-100); Mean Platelet Volume 9.5 fL (7.4-10.4); Monocytes # (auto) 0.47 K/uL (0.11-0.59); Monocytes % (auto) 10.9 %; Neutrophils # (auto) 2.54 K/uL (1.4-6.5); Neutrophils % (auto) 58.7 %; Platelet Count 307 K/uL (130-400); RDW Coefficient of Variation 19.6 % (11.5-14.5); RDW Standard Deviation 57.8 fL (36.4-46.3); Red Blood Count 4.01 M/uL (4.2-5.4); White Blood Count 4.33 K/uL (4.8-10.8)
[2019-03-11 16:39] LABS: Albumin Level 3.2 gm/dl (3.4-5.0); BUN Creatinine Ratio 12.5 (10-20); Calcium 9.4 mg/dl (8.5-10.1); Creatinine Clr Calc Pharmacy 100.6 ml/min; Est GFR (African American) 112.6; Est GFR (Non-African American) 97.2; Potassium 4.1 mmol/L (3.5-5.1)
[2019-03-11 16:44] LABS: Albumin Globulin Ratio 0.8 (0.9-2); Bilirubin,Total 0.3 mg/dl (0.2-1); Globulin 3.8 gm/dl (2.5-4.0)
--- NOTE | 2019-03-11 17:22 | Ultrasound Report ---
US venous doppler LE RT HISTORY: 58 years-old Female eval for DVT acute pain and swelling of the right lower extremity COMPARISON: Duplex venous Doppler study 04/03/2015 TECHNIQUE: Multiple real-time sonographic images of the right lower extremity deep venous structures were obtained assessing grayscale appearance, color and spectral flow FINDINGS: Common femoral the profunda femoris veins appears patent. There is a short segment of partially occlu sive thrombus involving the distal superficial femoral vein. Thrombus continues into the superficial saphenous vein where it becomes occlusive and also through the distal calf for a long segment of brandee ral centimeters. Patent popliteal vein. Occlusive thrombus involves one of the peroneal veins. Visualized posterior ti bial vein appears patent. IMPRESSION: Deep and superficial venous thrombosis of the right lower extremity as above. ACT 112: Negative or not required by law. The above report was generated using voice recognition software. It may contain grammatical, syntax o r spelling errors. Electronically signed by: Ti Powers M.D. 03/11/2019 5:21 PM
[2019-03-11] MEDS ORDERED: OPTIRAY 320 125ml IV PRN (18:02)
--- NOTE | 2019-03-11 18:15 | CT Scan Report ---
CT angio chest PE protocol CT DOSE: 545.51 mGycm HISTORY: 58 years-old Female with PE, has a right leg DVT. Acute chest pain with lower extremity DV T TECHNIQUE: Multiple CTA images of the chest were obtained after the intravenous administration of 118 ml Optiray 320. Coronal and sagittal MIPS were obtained from the axial data set and were submitted for review. All measurements were obtained according to NASCET criteria. A dose lowering technique w as utilized adhering to the principles of ALARA. COMPARISON: Duplex venous Doppler study of same day, chest CT 03/31/2017 FINDINGS: CTA: Heart is normal in size without pericardial effusion. Coronary arterial calcifications are noted. Mil d calcified plaque of the thoracic aorta without aneurysm or dissection. There is patency of the imag ed great vessels. The pulmonary artery is opacified to the level the subsegmental branches. Multiple filling defects are noted within segmental and subsegmental branches of the right lower and left uppe r lobes compatible with pulmonary emboli. No central pulmonary emboli or evidence of right heart stra in. CT CHEST: Multinodular goiter with nodules in the right lobe measuring up to 10 mm. No adenopathy by CT size cr iteria. No pneumothorax or pleural effusion. No overt pulmonary edema or airspace consolidation typic al for pneumonia. There are no suspicious pulmonary nodules or masses identified. No evidence of pulm onary infarct. Central airways are patent. Postoperative changes of gastric bypass mild nonspecific stranding noted adjacent to the proximal asp ect of the excluded stomach, similar to comparison. Hepatic steatosis. 1.9 cm hypodensity of the post erior right hepatic lobe suggests probable cyst. Soft tissues are unremarkable. Degenerative changes of the shoulders and spine. Multiple healed remote right-sided rib fractures. IMPRESSION: 1. Segmental and subsegmental pulmonary emboli of the left upper and right lower lobes. No evidence o f right heart strain or pulmonary infarct. 2. No pleural effusion, adenopathy or airspace consolidation. 3. Hepatic steatosis. 4. Prior gastric bypass. 5. Multinodular goiter. 6. Coronary arterial calcifications. ACT 112: Negative or not required by law. The above report was generated using voice recognition software. It may contain grammatical, syntax o r spelling errors. Electronically signed by: Ti Powers M.D. 03/11/2019 6:14 PM
[2019-03-11 18:27] LABS: Partial Thromboplastin Ratio 0.9; Partial Thromboplastin Time 24.9 Seconds (21.0-31.0); Prothrombin Time 10.1 Seconds (9.0-12.0)
[2019-03-11] MEDS ORDERED: Heparin BOLUS **ED Use Only IV STA (18:48)
[2019-03-11] MEDS ORDERED: LORazepam 1 MG TAB SL STA (18:55)
[2019-03-11] MEDS: HEPARIN SODIUM/DEXTROSE 25,000 UNITS/500 ML BAG IV SCH (19:05)
[2019-03-11] MEDS ORDERED: ONDANSETRON INJ 2 MG/ML 2 ML VIAL IV PRN (19:40)
[2019-03-11] MEDS ORDERED: TRAMADOL HCL 50 MG TABLET PO PRN (19:40)
[2019-03-11] MEDS ORDERED: HydrALAZINE HCL 20 MG/ML VIAL IV PRN (19:40)
--- NOTE | 2019-03-11 19:58 | History & Physical Report ---
Date of Service March 11, 2019 Assessment & Plan (1) Pulmonary embolism, bilateral: Admit to PCU No issues with oxygenation 99% on RA No chest pain Continue heparin gtt overnight Day team discretion for further anticoagulation. echo (2) DVT of leg (deep venous thrombosis): Right I added GIO hose to help with edema. Pain control. (3) Hypertension: Does not take daily antihypertensive Will use prn hydralazine for now as BP is currently 166/114 (4) Depression: Continue quetiapine, bupropion and amitriptyline. (5) Post traumatic stress disorder: Exacerbated by previous superior mesenteric vein thrombosis event. I will order prn Ativan. History of Present Illness Primary Care Provider: Sonya Ruiz MD Allergies Allergy/AdvReac Type Severity Reaction Status Date / Time Sulfa (Sulfonamide Allergy Unknown unknown Verified 03/11/19 18:21 Antibiotics) reaction codeine AdvReac Unknown agitation, Verified 03/11/19 18:21 irritability levofloxacin [From Levaquin] AdvReac Unknown tendon Verified 03/11/19 18:21 tearing NSAIDS (Non-Steroidal AdvReac Unknown advised to Verified 03/11/19 18:21 Anti-Inflamma avoid s/p gastric bypass Home Medications Home Medications Medication Instructions Recorded Confirmed Type bupropion HCl 100 mg tablet 100 mg PO TID 07/06/18 03/11/19 History calcium carbonate 600 mg calcium 600 mg PO QAM 07/06/18 03/11/19 History (1,500 mg) tablet cholecalciferol (vitamin D3) 5,000 unit PO QAM 08/11/18 03/11/19 History [Vitamin D3] cyanocobalamin (vitamin B-12) 1,000 mcg IM MONTHLY 08/11/18 03/11/19 History biotin 1,000 mcg PO QAM 09/28/18 03/11/19 History diphenhydramine HCl [Benadryl] 25 mg PO TID PRN 09/28/18 03/11/19 History fluticasone propionate [Flonase 1 spray INTRANASAL QAM PRN 09/28/18 03/11/19 History Allergy Relief] amitriptyline 25 mg tablet 25 mg PO BID tab 01/15/19 03/11/19 History quetiapine 50 mg tablet 50 mg PO BID tab 01/15/19 03/11/19 History Past Med/Surg History Medical History Anxiety Depression Hx of diabetes mellitus diet controlled/no meds since gastric bypass Hypertension Lumbar herniated disc L2-L5 Mixed connective tissue disease nonspecific "mild, lupus-like" Numbness B/L; L>R LE/foot r/t back Post traumatic stress disorder Spinal stenosis at L4-L5 level Spinal stenosis, lumbar region with neurogenic claudication Superior mesenteric vein thrombosis Urinary incontinence, urge chronic Venous insufficiency Surgical History History of carpal tunnel surgery of left wrist History of carpal tunnel surgery of right wrist History of colonoscopy History of gastric bypass Hx of abdominal surgery repair mesenteric vein Hx of cervical spine surgery Hx of exploratory laparotomy Hx of hysterectomy, total Hx of nasal septoplasty Hx of ovarian cystectomy Hx of shoulder surgery left Family History Father Family history of diabetes mellitus Social History Preferred Language: German Communication Ability: Effective Beliefs That Will Affect Care: None marital status: single Current Living Situation: Alone Feels Safe at Home: Yes Smoking Status: Never smoker Tobacco Type: cigarettes ; packs per day: 1 ; Cigarettes Per Day: 20 (total use x 30 years) ; Second Hand Exposure: No ; Hx Alcohol Use: No Hx Substance Use: Yes ("WHEN I CAN") substance use type: marijuana (last marijuana use (inhalation): 08/2018) Seatbelt Use: always Review of Systems Review of Systems: Constitutional- no fever; no weight loss Eyes- no acute visual changes ENT- no sinus drainage; no pharyngitis Pulmonary- no cough, no wheezing, no shortness of breath Cardiac- no chest pain, no palpitations, no orthopnea, no dependent edema GI- no nausea, no vomiting, no diarrhea, no melena, no hematochezia - no dysuria, no hematuria Musculoskeletal- + Right calf pain and right leg swelling below knee Derm- no rashes, no new skin lesions. Hematologic- no unusual bruising, no unusual bleeding Lymphatics- no adenopathy Endocrine- no polyuria or polydipsia; no heat or cold intolerance Neuro- no headaches, no focal neurologic symptoms Psych- + anxiety feels she is having PTSD symptoms from previous event with superior mesenteric vein thrombosis. no depression Physical Exam Physical Exam: General- adult Head- atraumatic Eyes- PERRL, EOMI, anicteric ENT- oropharynx clear Neck- supple, no JVD, no adenopathy, no thyromegaly. Lungs- CTA b/l no R/R/W. Heart- regular rhythm; no murmur, no gallop, no rub appreciated Abdomen- normal bowel sounds, soft, nontender, no masses or hepatosplenomegaly Extremities- peripheral pulses intact, +1 non-pitting edema to the Right leg below knee. Neuro- alert, oriented x 3; PERRL, EOMI; progressive die maker II-XII grossly intact, non-focal. Skin- warm & dry, no rashes. Results & Data Vital Signs (Past 12 Hours) Vital Signs Temp Pulse Pulse Resp BP BP Pulse Ox 03/11/19 19:07 76 18 166/114 H 99 03/11/19 17:42 89 19 153/109 H 99 03/11/19 15:17 37.3 C 104 H 20 188/18 H 98 Laboratory Results Laboratory Results WBC 4.33 K/uL (4.8-10.8) L 03/11/19 16:06 RBC 4.01 M/uL (4.2-5.4) L 03/11/19 16:06 Hgb 10.4 g/dL (12.0-16.0) L 03/11/19 16:06 Hct 32.3 % (37-47) L 03/11/19 16:06 MCV 80.5 fL (80-100) 03/11/19 16:06 MCH 25.9 pg (25-34) 03/11/19 16:06 MCHC 32.2 g/dL (32-36) 03/11/19 16:06 RDW Std Deviation 57.8 fL (36.4-46.3) H 03/11/19 16:06 RDW Coeff of Keith 19.6 % (11.5-14.5) H 03/11/19 16:06 Plt Count 307 K/uL (130-400) 03/11/19 16:06 MPV 9.5 fL (7.4-10.4) 03/11/19 16:06 Immature Gran % (Auto) 0.2 % 03/11/19 16:06 Neut % (Auto) 58.7 % 03/11/19 16:06 Lymph % (Auto) 24.2 % 03/11/19 16:06 [place] % (Auto) 10.9 % 03/11/19 16:06 Eos % (Auto) 5.3 % 03/11/19 16:06 Baso % (Auto) 0.7 % 03/11/19 16:06 Immature Gran # (Auto) 0.01 K/uL (0.00-0.02) 03/11/19 16:06 Neut # (Auto) 2.54 K/uL (1.4-6.5) 03/11/19 16:06 Lymph # (Auto) 1.05 K/uL (1.2-3.4) L 03/11/19 16:06 [place] # (Auto) 0.47 K/uL (0.11-0.59) 03/11/19 16:06 Eos # (Auto) 0.23 K/uL (0-0.5) 03/11/19 16:06 Baso # (Auto) 0.03 K/uL (0-0.2) 03/11/19 16:06 PT 10.1 Seconds (9.0-12.0) 03/11/19 18:08 INR 1.0 (0.9-1.1) 03/11/19 18:08 APTT 24.9 Seconds (21.0-31.0) 03/11/19 18:08 PTT Ratio 0.9 03/11/19 18:08 Sodium 138 mmol/L (136-145) 03/11/19 16:06 Potassium 4.1 mmol/L (3.5-5.1) 03/11/19 16:06 Chloride 107 mmol/L (98-107) 03/11/19 16:06 Carbon Dioxide 26 mmol/L (21-32) 03/11/19 16:06 Anion Gap 5.0 (3-11) 03/11/19 16:06 BUN 8 mg/dl (7-18) 03/11/19 16:06 Creatinine 0.65 mg/dl (0.6-1.2) 03/11/19 16:06 Est Cr Clr Drug Dosing 100.6 ml/min 03/11/19 16:06 Est GFR ( Amer) 112.6 03/11/19 16:06 Est GFR (Non-Af Amer) 97.2 03/11/19 16:06 BUN/Creatinine Ratio 12.5 (10-20) 03/11/19 16:06 Glucose 97 mg/dl (70-99) 03/11/19 16:06 Calcium 9.4 mg/dl (8.5-10.1) 03/11/19 16:06 Total Bilirubin 0.3 mg/dl (0.2-1) 03/11/19 16:06 AST 37 U/L (15-37) 03/11/19 16:06 ALT 25 U/L (12-78) 03/11/19 16:06 Alkaline Phosphatase 134 U/L (45-117) H 03/11/19 16:06 NT-Pro-B Natriuret Pep 186 pg/ml (0-900) 03/11/19 16:06 Total Protein 7.0 gm/dl (6.4-8.2) 03/11/19 16:06 Albumin 3.2 gm/dl (3.4-5.0) L 03/11/19 16:06 Globulin 3.8 gm/dl (2.5-4.0) 03/11/19 16:06 Albumin/Globulin Ratio 0.8 (0.9-2) L 03/11/19 16:06 Diagnostic Findings [place], [place] [phone] Ultrasound Report Patient: AFSHAN BEE Date: 03/11/19 MR#: [id number]: [id number] Acct ID:[id number]: Date: [address] Zip: [place] [address] Age: 58Location: ED Sex: F Room/Bed: Att Phy:Diagnosis: BILATERAL EDEMA, FEET & ANKLES, CALF PAIN Alicia Phy: Sonya Ruiz MDService Date: 03/11/19 Fam Phy:Interpreting Phy: Efrain Powers Admit Phy: Ordering Phy: Shahriar Siegel MD cc: ~ US venous doppler LE RT HISTORY: 58 years-old Female eval for DVT acute pain and swelling of the right lower extremity COMPARISON: Duplex venous Doppler study 04/03/2015 TECHNIQUE: Multiple real-time sonographic images of the right lower extremity deep venous structures were obtained assessing grayscale appearance, color and spectral flow FINDINGS: Common femoral the profunda femoris veins appears patent. There is a short segment of partially occlusive thrombus involving the distal superficial femoral vein. Thrombus continues into the superficial saphenous vein where it becomes occlusive and also through the distal calf for a long segment of several centimeters. Patent popliteal vein. Occlusive thrombus involves one of the peroneal veins. Visualized posterior tibial vein appears patent. IMPRESSION: Deep and superficial venous thrombosis of the right lower extremity as above. ACT 112: Negative or not required by law. The above report was generated using voice recognition software. It may contain grammatical, syntax or spelling errors. Electronically signed by: Ti Powers M.D. 03/11/2019 5:21 PM Dictated: 03/11/191716 Transcribed: 03/11/191716 [place], [place] [phone] CT Scan Report Patient: AFSHAN BEE Date: 03/11/19 MR#: [id number]: [id number] Acct ID:[id number]: Date: 1960[facility] Zip: [place] [address] Age: 58Location: ED Sex: F Room/Bed: Att Phy:Diagnosis: BILATERAL EDEMA, FEET & ANKLES, CALF PAIN Alicia Phy: Sonya Ruiz MDService Date: 03/11/19 Fam Phy:Interpreting Phy: Efrain Powers Admit Phy: Ordering Phy: Shhariar Siegel MD cc: ~ CT angio chest PE protocol CT DOSE: 545.51 mGycm HISTORY: 58 years-old Female with PE, has a right leg DVT. Acute chest pain with lower extremity DVT TECHNIQUE: Multiple CTA images of the chest were obtained after the intravenous administration of 118 ml Optiray 320. Coronal and sagittal MIPS were obtained from the axial data set and were submitted for review. All measurements were obtained according to NASCET criteria. A dose lowering technique was utilized adhering to the principles of ALARA. COMPARISON: Duplex venous Doppler study of same day, chest CT 03/31/2017 FINDINGS: CTA: Heart is normal in size without pericardial effusion. Coronary arterial calcifications are noted. Mild calcified plaque of the thoracic aorta without aneurysm or dissection. There is patency of the imaged great vessels. The pulmonary artery is opacified to the level the subsegmental branches. Multiple filling defects are noted within segmental and subsegmental branches of the right lower and left upper lobes compatible with pulmonary emboli. No central pulmonary emboli or evidence of right heart strain. CT CHEST: Multinodular goiter with nodules in the right lobe measuring up to 10 mm. No adenopathy by CT size criteria. No pneumothorax or pleural effusion. No overt pulmonary edema or airspace consolidation typical for pneumonia. There are no suspicious pulmonary nodules or masses identified. No evidence of pulmonary infarct. Central airways are patent. Postoperative changes of gastric bypass mild nonspecific stranding noted adjacent to the proximal aspect of the excluded stomach, similar to comparison. Hepatic steatosis. 1.9 cm hypodensity of the posterior right hepatic lobe suggests probable cyst. Soft tissues are unremarkable. Degenerative changes of the shoulders and spine. Multiple healed remote right-sided rib fractures. IMPRESSION: 1. Segmental and subsegmental pulmonary emboli of the left upper and right lower lobes. No evidence of right heart strain or pulmonary infarct. 2. No pleural effusion, adenopathy or airspace consolidation. 3. Hepatic steatosis. 4. Prior gastric bypass. 5. Multinodular goiter. 6. Coronary arterial calcifications. ACT 112: Negative or not required by law. The above report was generated using voice recognition software. It may contain grammatical, syntax or spelling errors. Electronically signed by: Ti Powers M.D. 03/11/2019 6:14 PM Dictated: 03/11/191806 Transcribed: 03/11/191806 Code Status & VTE Plan VTE Prophylaxis Plan VTE Prophylaxis will be ordered: Yes PG Care Time/CCT Total # of Minutes Spent Total Time Spent: 60 Total Time Spent with Patient: Total time spent is greater than 50% in coordi nation of care (as documented) at patient's floor/unit and/or counseling patient:
[2019-03-11] MEDS: HYDROmorphone INJ 0.5 MG/0.5 ML SYR IV PRN (21:27)
[2019-03-11] MEDS: ACETAMINOPHEN 325 MG TAB PO PRN (22:18)
[2019-03-11] MEDS: buPROPion HCl 100 MG TABLET PO SCH (22:18)
[2019-03-11] MEDS: AMITRIPTYLINE HCL 25 MG TAB PO SCH (22:19)
[2019-03-11] MEDS: QUETIAPINE FUMARATE 25 MG TABLET PO SCH (22:19)
[2019-03-11] MEDS ORDERED: NICOTINE 14 MG/24 HR PATCH TD SCH (22:30)
[2019-03-11] MEDS: LORazepam 1 MG TAB PO PRN (23:43)
--- NOTE | 2019-03-12 00:38 | Emergency Department Note ---
Entered by Stephanie Reyes acting as a scribe for ED Provider Note CHIEF COMPLAINT: Right leg lainez HISTORY OF PRESENT ILLNESS: The patient is a 58 year old female who presents to the Emergency Room with complaints of constant right leg pain starting 2 weeks ago. The patient states that she has also had bilateral edema in her lower extremities. The patient notes that the swelling is slightly better today than it has been, but she still has the right leg pain. The patient rates her pain as a 4/10. The patient states that 13 years ago, she had a gastric bypass surgery which caused her to get a hernia and superior mesenteric vein thrombosis. The patient states that she received Lovenox injections at this time. The patient notes that she is not on blood thinners anymore. The patient states that she got back surgery 5 months ago and is still having back pain from it. The patient notes that she has been attending physical therapy for her back pain and she is worried that something she did there may have given her the leg pain. The patient denies trauma to her right leg and recent long travel. Pt denies LOC, headache, fevers, chills, diaphoresis, visual changes, neck pain, chest pain, breathing difficulties, nausea, vomiting, abdominal pain, melena, hematochezia, urinary symptoms, numbness, weakness, lymphadenopathy, rash, or other complaints. REVIEW OF SYSTEMS: See HPI for pertinent positives and negatives. A total of ten systems were reviewed and were otherwise negative. PMHx/PSHx: Hypertension, diabetes, PTSD, lumbar herniated disc, venous insufficiency, superior mesenteric vein thrombosis, gastric bypass, and back surgery. SOCIAL HISTORY: Patient lives at home. PHYSICAL EXAM: GENERAL: Awake, alert, well-appearing, in no distress HENT: Normocephalic, atraumatic. Oropharynx unremarkable. EYES: PERRL. Normal conjunctiva. Sclera non-icteric. NECK: Inspection normal. Non-tender. Supple. No nuchal rigidity. FROM. No masses. RESPIRATORY: Clear to auscultation. No wheezes. No rales. Normal respiratory effort. CARDIAC: Normal rate. Normal rhythm. No murmurs. No rubs. Extremities warm and well perfused. Pulses equal. No JVD. GI: Soft, non-distended. No tenderness to palpation. No rebound or guarding. No masses. RECTAL: Deferred. MUSCULOSKELETAL: Atraumatic. Chest examination reveals no tenderness. The back is symmetrical on inspection without obvious abnormality. There is no CVA tenderness to palpation. No joint edema. LOWER EXTREMITIES: Right calf is larger than left. No discoloration. NEURO: Normal sensorium. No sensory or motor deficits noted. SKIN: No rash or jaundice noted. EMERGENCY DEPARTMENT COURSE: 155: Past medical records reviewed. The patient was evaluated in room B12B, and a complete history and physical examination were performed. 1741: The patient has a DVT. I updated the patient on the test results and how we will need to scan her chest. 1934: I discussed the patient's case with Dr. Fang- [facility], Hospitalist. He will evaluate the patient for further management. MEDICAL DECISION MAKING: B12 Triage Nursing notes reviewed and agree them. Additional history obtained from the family. The patient's history was concerning for swelling and pain in the leg. Differential diagnosis: Etiologies such as DVT, joint effusion, infection, trauma, muscular, lymphedema, idiopathic, CHF, pulmonary embolism as well as others were entertained.. Physical examination: The physical examination revealed no signs of infection. Neurovascularly intact. ER treatment provided: IV heparin Sublingual Ativan On reassessment the patient felt better. Diagnostics interpreted by me: The labs revealed an unremarkable CBC and chemistry panel. BNP negative. Imaging studies: Ultrasound imaging of the right lower extremity reveals DVT. CT PE study is concerning for bilateral pulmonary emboli. The patient has a DVT and bilateral PE. She will need anticoagulated and admitted to the hospital. Patient was educated. She was pleased with the treatment. Consultation: A consultation was placed with the hospitalist. The case was discussed and diagnostics were reviewed. The patient was evaluated in the ER for further treatment. IMPRESSION: Bilateral pulmonary embolism, DVT of right lower extremity. PLAN: Admitted as inpatient I have personally spent 40 minutes of critical care time in the direct management of this patient. This includes bedside care, interpretation of diagnostic studies, and testing, discussion with consultants, patient, and [facility] members, and other required patient management activities. This 40 minutes is in excess of all separately billable procedures. The scribe's documentation has been prepared under my direction and personally reviewed by me in its entirety. I confirm that the note above accurately reflects all work, treatment, procedures, and medical decision making performed by me. Impression & Plan Bilateral pulmonary embolism, Deep vein thrombosis (DVT) of right lower extremity Past Med/Surg History Medical History Anxiety Depression Hx of diabetes mellitus diet controlled/no meds since gastric bypass Hypertension Lumbar herniated disc L2-L5 Mixed connective tissue disease nonspecific "mild, lupus-like" Numbness B/L; L>R LE/foot r/t back Post traumatic stress disorder Spinal stenosis at L4-L5 level Spinal stenosis, lumbar region with neurogenic claudication Superior mesenteric vein thrombosis Urinary incontinence, urge chronic Venous insufficiency Surgical History History of carpal tunnel surgery of left wrist History of carpal tunnel surgery of right wrist History of colonoscopy History of gastric bypass Hx of abdominal surgery repair mesenteric vein Hx of cervical spine surgery Hx of exploratory laparotomy Hx of hysterectomy, total Hx of nasal septoplasty Hx of ovarian cystectomy Hx of shoulder surgery left Family History Father Family history of diabetes mellitus Social History Preferred Language: Israeli Communication Ability: Effective [employer] Required: No Beliefs That Will Affect Care: None marital status: single Current Living Situation: Alone Feels Safe at Home: Yes Smoking Status: Current every day smoker Tobacco Type: cigarettes ; packs per day: 1 ; Cigarettes Per Day: 15-20 ; Second Hand Exposure: No ; Hx Alcohol Use: Yes Alcohol type: beer Hx Substance Use: No Seatbelt Use: always Results & Data Vital Signs Vital Signs - 24 hr 03/11/19 15:17 03/11/19 17:42 Temperature 37.3 C Temperature Source Oral Pulse Rate 104 H Pulse Rate [Finger] 89 Pulse Rhythm Regular Pulse Strength Normal Respiratory Rate 20 19 Respiratory Effort / Characteristics Non-Labored Respiratory Depth Normal Respiratory Pattern Regular Blood Pressure 188/18 H Blood Pressure [Left Arm] 153/109 H Blood Pressure Mean 74 Blood Pressure Mean [Left Arm] 123 Blood Pressure Position Sitting Pulse Oximetry 98 99 Oxygen Delivery Method Room Air Room Air Sepsis Recent Fever Within 48 Hours No Sepsis Action Taken by Nursing No Action Required Home Medications Current Medication List: was personally reviewed by me Laboratory Data Attestation: I reviewed the patient's lab results. Result diagrams: 03/11/19 16:06 03/11/19 16:06 Lab Results 03/11/19 03/11/19 03/11/19 Range/Units 16:06 16:06 18:08 WBC 4.33 L (4.8-10.8) K/uL RBC 4.01 L (4.2-5.4) M/uL Hgb 10.4 L (12.0-16.0) g/dL Hct 32.3 L (37-47) % MCV 80.5 (80-100) fL MCH 25.9 (25-34) pg MCHC 32.2 (32-36) g/dL RDW Std Deviation 57.8 H (36.4-46.3) fL RDW Coeff of Keith 19.6 H (11.5-14.5) % Plt Count 307 (130-400) K/uL MPV 9.5 (7.4-10.4) fL Immature Gran % (Auto) 0.2 % Neut % (Auto) 58.7 % Lymph % (Auto) 24.2 % [place] % (Auto) 10.9 % Eos % (Auto) 5.3 % Baso % (Auto) 0.7 % Immature Gran # (Auto) 0.01 (0.00-0.02) K/uL Neut # (Auto) 2.54 (1.4-6.5) K/uL Lymph # (Auto) 1.05 L (1.2-3.4) K/uL [place] # (Auto) 0.47 (0.11-0.59) K/uL Eos # (Auto) 0.23 (0-0.5) K/uL Baso # (Auto) 0.03 (0-0.2) K/uL PT 10.1 (9.0-12.0) Seconds INR 1.0 (0.9-1.1) APTT 24.9 (21.0-31.0) Seconds PTT Ratio 0.9 Sodium 138 (136-145) mmol/L Potassium 4.1 (3.5-5.1) mmol/L Chloride 107 (98-107) mmol/L Carbon Dioxide 26 (21-32) mmol/L Anion Gap 5.0 (3-11) BUN 8 (7-18) mg/dl Creatinine 0.65 (0.6-1.2) mg/dl Est Cr Clr Drug Dosing 100.6 ml/min Est GFR ( Amer) 112.6 Est GFR (Non-Af Amer) 97.2 BUN/Creatinine Ratio 12.5 (10-20) Glucose 97 (70-99) mg/dl Calcium 9.4 (8.5-10.1) mg/dl Total Bilirubin 0.3 (0.2-1) mg/dl AST 37 (15-37) U/L ALT 25 (12-78) U/L Alkaline Phosphatase 134 H (45-117) U/L NT-Pro-B Natriuret Pep 186 (0-900) pg/ml Total Protein 7.0 (6.4-8.2) gm/dl Albumin 3.2 L (3.4-5.0) gm/dl Globulin 3.8 (2.5-4.0) gm/dl Albumin/Globulin Ratio 0.8 L (0.9-2) Administered Medications Acetaminophen (Tylenol) 650 mg PO Q4H PRN PRN Reason: mild pain or fever Stop: 04/10/19 19:39 Last Admin: 03/11/19 22:18 Dose: 650 mg Documented by: [id number] Amitriptyline HCl (Elavil) 25 mg PO BID [facility] Stop: 04/10/19 20:59 Last Admin: 03/11/19 22:19 Dose: 25 mg Documented by: [id number] Bupropion HCl (Wellbutrin) 100 mg PO TID [facility] Stop: 04/10/19 20:59 Last Admin: 03/11/19 22:18 Dose: 100 mg Documented by: [id number] Hydralazine HCl (Hydralazine Hcl) 10 mg IV Q4H PRN PRN Reason: Systolic BP > 160 or diastolic >95 Stop: 04/10/19 19:39 Last Admin: 03/11/19 22:19 Dose: 10 mg Documented by: [id number] Hydromorphone HCl (Dilaudid) 0.5 mg IV Q3H PRN PRN Reason: Severe Pain Stop: 03/25/19 19:39 Last Admin: 03/11/19 21:27 Dose: 0.5 mg Documented by: [id number] Heparin Sodium/Dextrose (Heparin Sodium/Dextrose) 25,000 units in 500 mls @ 25 mls/hr IV .Q20H MINDY; Protocol Stop: 04/10/19 18:44 Last Admin: 03/11/19 19:05 Dose: 1,250 units/hr, 25 mls/hr Documented by: [id number] Cosigned by: [id number] Lorazepam (Ativan) 1 mg PO Q6H PRN PRN Reason: Anxiety Stop: 04/10/19 20:56 Last Admin: 03/11/19 23:43 Dose: 1 mg Documented by: [id number] Nicotine (Nicoderm Cq) 14 mg TD HS MINDY Stop: 04/10/19 22:29 Last Admin: 03/11/19 22:50 Dose: 14 mg Documented by: [id number] Quetiapine Fumarate (Seroquel) 50 mg PO BID M[facility] Stop: 04/10/19 20:59 Last Admin: 03/11/19 22:19 Dose: 50 mg Documented by: [id number] Discontinued Medications Heparin Sodium (Porcine) (Heparin Iv Bolus) 5,000 units IV NOW STA Stop: 03/11/19 18:49 Last Admin: 03/11/19 19:04 Dose: 5,000 units Documented by: [id number] Cosigned by: [id number] Heparin Sodium/Dextrose () 1 ea N/A NOW STA; Protocol Stop: 03/11/19 18:46 Last Admin: 03/11/19 19:04 Dose: Not Given Documented by: [id number] Ioversol (Optiray 320 125ml) 118 ml IV ONCE PRN PRN Reason: Interaction Checking Stop: 03/15/19 18:01 Last Admin: 03/11/19 18:03 Dose: 118 ml Documented by: [id number] Lorazepam (Ativan) 1 mg SL NOW STA Stop: 03/11/19 18:56 Last Admin: 03/11/19 19:27 Dose: 1 mg Documented by: [id number] Imaging Data Radiologist's Impression: Radiology results as stated below per my review and the radiologist's interpretation: CT angio chest PE protocol CT DOSE: 545.51 mGycm HISTORY: 58 years-old Female with PE, has a right leg DVT. Acute chest pain with lower extremity DVT TECHNIQUE: Multiple CTA images of the chest were obtained after the intravenous administration of 118 ml Optiray 320. Coronal and sagittal MIPS were obtained from the axial data set and were submitted for review. All measurements were obtained according to NASCET criteria. A dose lowering technique was utilized adhering to the principles of ALARA. COMPARISON: Duplex venous Doppler study of same day, chest CT 03/31/2017 FINDINGS: CTA: Heart is normal in size without pericardial effusion. Coronary arterial calcifications are noted. Mild calcified plaque of the thoracic aorta without aneurysm or dissection. There is patency of the imaged great vessels. The pulmonary artery is opacified to the level the subsegmental branches. Multiple filling defects are noted within segmental and subsegmental branches of the right lower and left upper lobes compatible with pulmonary emboli. No central pulmonary emboli or evidence of right heart strain. CT CHEST: Multinodular goiter with nodules in the right lobe measuring up to 10 mm. No adenopathy by CT size criteria. No pneumothorax or pleural effusion. No overt pulmonary edema or airspace consolidation typical for pneumonia. There are no suspicious pulmonary nodules or masses identified. No evidence of pulmonary infarct. Central airways are patent. Postoperative changes of gastric bypass mild nonspecific stranding noted adjacent to the proximal aspect of the excluded stomach, similar to comparison. Hepatic steatosis. 1.9 cm hypodensity of the posterior right hepatic lobe suggests probable cyst. Soft tissues are unremarkable. Degenerative changes of the shoulders and spine. Multiple healed remote right-sided rib fractures. IMPRESSION: 1. Segmental and subsegmental pulmonary emboli of the left upper and right lower lobes. No evidence of right heart strain or pulmonary infarct. 2. No pleural effusion, adenopathy or airspace consolidation. 3. Hepatic steatosis. 4. Prior gastric bypass. 5. Multinodular goiter. 6. Coronary arterial calcifications. ACT 112: Negative or not required by law. The above report was generated using voice recognition software. It may contain grammatical, syntax or spelling errors. Electronically signed by: Ti Powers M.D. 03/11/2019 6:14 PM US venous doppler LE RT HISTORY: 58 years-old Female eval for DVT acute pain and swelling of the right lower extremity COMPARISON: Duplex venous Doppler study 04/03/2015 TECHNIQUE: Multiple real-time sonographic images of the right lower extremity deep venous structures were obtained assessing grayscale appearance, color and spectral flow FINDINGS: Common femoral the profunda femoris veins appears patent. There is a short segme nt of partially occlusive thrombus involving the distal superficial femoral vein. Thrombus continues into the superficial saphenous vein where it becomes occlusive and also through the distal calf for a long segment of several centimeters. Patent popliteal vein. Occlusive thrombus involves one of the peroneal veins. Visualized posterior tibial vein appears patent. IMPRESSION: Deep and superficial venous thrombosis of the right lower extremity as above. ACT 112: Negative or not required by law. The above report was generated using voice recognition software. It may contain grammatical, syntax or spelling errors. Electronically signed by: Ti Powers M.D. 03/11/2019 5:21 PM Blood Pressure Blood Pressure Findings: Elevated blood pressure Blood Pressure Disposition: further management by hospitalist Discharge Plan Visit Data *Final* Discharge Date/Time: 03/11/19 20:15 Chief Complaint: Swelling/Edema to Extremity Stated Complaint: BILATERAL EDEMA, FEET & ANKLES, CALF PAIN ED Provider: Shahriar Siegel Discharge Problem: Bilateral pulmonary embolism, Deep vein thrombosis (DVT) of right lower extremity Patient Disposition: Admitted As Inpatient Discharge Instructions Interventions: ED Discharge Assessment Last Done: 03/11/19 20:15 Discharge Problem: Deep vein thrombosis (DVT) of right lower extremity Qualifiers: Affected thrombotic vein of extremity: unspecified vein of extremity Ch ronicity: unspecified Qualified Code(s): I82.401 - Acute embolism and thrombosis of unspecified deep veins of right lower extremity The scribe's documentation has been prepared under my direction and personally reviewed by me in its entirety. I confirm that the note above accurately reflects all work, treatment, procedures, and medical decision making performed by me.
[2019-03-12] MEDS: HYDROmorphone INJ 0.5 MG/0.5 ML SYR IV PRN ×2 (01:02→07:46)
[2019-03-12 01:34] LABS: Partial Thromboplastin Ratio 1.8
[2019-03-12 05:58] LABS: Hematocrit (blood only) 28.6 % (37-47); Hemoglobin 9.2 g/dL (12.0-16.0); Mean Corpuscular Hemoglobin 25.9 pg (25-34); Mean Corpuscular Hgb Conc 32.2 g/dL (32-36); Mean Corpuscular Volume 80.6 fL (80-100); Mean Platelet Volume 9.9 fL (7.4-10.4); Platelet Count 262 K/uL (130-400); RDW Coefficient of Variation 19.4 % (11.5-14.5); RDW Standard Deviation 56.8 fL (36.4-46.3); Red Blood Count 3.55 M/uL (4.2-5.4); White Blood Count 3.93 K/uL (4.8-10.8)
[2019-03-12 06:04] LABS: Partial Thromboplastin Ratio 1.6; Partial Thromboplastin Time 44.1 Seconds (21.0-31.0)
[2019-03-12 06:16] LABS: Calcium 8.5 mg/dl (8.5-10.1); Creatinine Clr Calc Pharmacy 151.7 ml/min; Est GFR (Non-African American) 111.3; Potassium 3.5 mmol/L (3.5-5.1)
[2019-03-12] MEDS ORDERED: HEPARIN IV BOLUS 3,000 UNITS in SYRINGE 0 ML IV ONE (07:00)
[2019-03-12] MEDS: LORazepam 1 MG TAB PO PRN ×2 (07:46→14:07)
[2019-03-12] MEDS: ACETAMINOPHEN 325 MG TAB PO PRN (07:46)
[2019-03-12] MEDS: AMITRIPTYLINE HCL 25 MG TAB PO SCH (07:47)
[2019-03-12] MEDS: QUETIAPINE FUMARATE 25 MG TABLET PO SCH (07:47)
[2019-03-12] MEDS: buPROPion HCl 100 MG TABLET PO SCH ×2 (07:47→14:01)
[2019-03-12] MEDS ORDERED: NON-FORMULARY MEDICATION (Biotin 1,000 MCG) PO SCH (09:00)
[2019-03-12] MEDS ORDERED: CHOLECALCIFEROL 1,000 UNITS TAB PO SCH (09:00)
[2019-03-12] MEDS ORDERED: CALCIUM CARBONATE 1250MG TAB PO SCH (09:00)
[2019-03-12] MEDS: HEPARIN SODIUM/DEXTROSE 25,000 UNITS/500 ML BAG IV SCH (14:01)
[2019-03-12 14:06] LABS: Partial Thromboplastin Ratio 2.1
[2019-03-12 14:09] LABS: Partial Thromboplastin Time 56.5 Seconds (21.0-31.0)
[2019-03-12 15:34] LABS: Hematocrit (blood only) 28.9 % (37-47); Hemoglobin 9.2 g/dL (12.0-16.0)
[2019-03-12] MEDS ORDERED: ENOXAPARIN 150 MG/ML SYR SQ SCH (16:00)
[2019-03-12] MEDS ORDERED: APIXABAN 5 MG TABLET PO ONE (16:00)
--- NOTE | 2019-03-18 23:45 | Discharge Summary ---
Date of Service March 12, 2019 Principal Diagnosis bilateral pulmonary embolus Discharge Exam General- adult Head- atraumatic Eyes- PERRL, EOMI, anicteric ENT- oropharynx clear Neck- supple, no JVD, no adenopathy, no thyromegaly. Lungs- CTA b/l no R/R/W. Heart- regular rhythm; no murmur, no gallop, no rub appreciated Abdomen- normal bowel sounds, soft, nontender, no masses or hepatosplenomegaly Extremities- peripheral pulses intact, +1 non-pitting edema to the Right leg below knee. Neuro- alert, oriented x 3; PERRL, EOMI; china painter II-XII grossly intact, non-focal. Skin- warm & dry, no rashes. Discharge Data Allergies Allergy/AdvReac Type Severity Reaction Status Date / Time Sulfa (Sulfonamide Allergy Unknown unknown Verified 03/18/19 10:21 Antibiotics) reaction codeine AdvReac Unknown agitation, Verified 03/18/19 10:21 irritability levofloxacin [From Levaquin] AdvReac Unknown tendon Verified 03/18/19 10:21 tearing NSAIDS (Non-Steroidal AdvReac Unknown advised to Verified 03/18/19 10:21 Anti-Inflamma avoid s/p gastric bypass Consultations 03/11/19 20:57 Consult Case Management - Discharge Planning Routine Ordered Studies 03/11/19 15:56 US venous doppler LE RT Stat 03/11/19 17:38 CT angio chest PE protocol Stat Hospital Course (1) Pulmonary embolism, bilateral: Admit to PCU No issues with oxygenation 99% on RA No chest pain On hepain drip during hospital stay, will be placed on lovenox at discharge, due to gastric bypass surgery and concern over malabsorption. (2) DVT of leg (deep venous thrombosis): Right I added GIO hose to help with edema. Pain control. (3) Hypertension: Does not take daily antihypertensive Will use prn hydralazine for now as BP is currently 166/114 (4) Depression: Continue quetiapine, bupropion and amitriptyline. (5) Post traumatic stress disorder: Exacerbated by previous superior mesenteric vein thrombosis event. I will order prn Ativan. Total Time Total Time Spent Total Time Spent (In Minutes): 32 Total Time Includes: Examination of the Patient, Discharge Planning and Medication Reconciliation Discharge Plan Discharge Items Patient Disposition: Home - Self-Care Reason For Visit: PE/DVT Discharge Diagnosis: Pulmonary Emboli/ Deep Vein Thrombosis Activity: Resume your previous activity Non-emergency contact: Primary Care Provider Call non-emergency contact if: you have any medication questions Follow-up/Referrals: Sonya Ruiz MD [Primary Care Provider] - 03/18/19 10:15 am (Please, follow up with Dr. Ruiz on March 18 at 10:15 am. *If you need to change this appointment, call the office at [phone].) Frederic Ramos [Physician] - (Please, follow up at [facility] with either Dr. Frederic Urrutia or Dr. Watson Hill. *A nurse from their office will call you regarding appointment information. Their office is located in the rear of this hospital building. Park behind the hospital in [address] and enter via [employer] and [address] [facility]. If you have any questions, call the office at [phone].) Diet: Regular Addtl Attending Provider Instructions: You have been hospitalized for an acute medical problem: pulmonary embolism. During your stay at [facility], we have made an effort to correct the problem that brought you to the hospital while keeping you as comfortable as possible. Medications were used to bring your condition under control and your discharge instructions will include directions for any medications you should take after leaving the hospital. Please make sure you see your Primary Care Provider as part of your follow up plan. First dose was at 4:30 pm You can take it once a day. Pending Studies at Discharge: No Stand-Alone Forms: My [facility] [employer], Smoking Cessation Medications and DC Order Prescriptions: New acetaminophen [Mapap (acetaminophen)] 325 mg Tablet 650 mg PO Q4H PRN (Reason: pain) Qty: 30 RF: 0 enoxaparin [Lovenox] 150 mg/mL syringe 129 mg SQ DAILY 30 Days Qty: 30 RF: 3 Continued bupropion HCl 100 mg tablet 100 mg PO TID RF: 0 calcium carbonate [Calcium 600] 600 mg calcium (1,500 mg) tablet 600 mg PO QAM RF: 0 quetiapine [Seroquel] 50 mg tablet 50 mg PO BID RF: 0 amitriptyline 25 mg tablet 25 mg PO BID RF: 0 cholecalciferol (vitamin D3) [Vitamin D3] 5,000 unit Tablet 5,000 unit PO QAM RF: 0 cyanocobalamin (vitamin B-12) 1,000 mcg/mL Kit 1,000 mcg IM MONTHLY RF: 0 biotin 1,000 mcg Tablet,Chewable 1,000 mcg PO QAM RF: 0 diphenhydramine HCl [Benadryl] 25 mg Capsule 25 mg PO TID PRN (Reason: Allergy Symptoms) RF: 0 fluticasone propionate [Flonase Allergy Relief] 50 mcg/actuation [place],Suspension 1 spray INTRANASAL QAM PRN (Reason: Allergy Symptoms) RF: 0 No Action celecoxib [Celebrex] 50 mg capsule 50 mg PO DAILY RF: 0 hydrochlorothiazide 25 mg tablet 25 mg PO DAILY Qty: 90 RF: 3 Discharge Orders: Discharge Order (Routine); Ordered 03/12/19 Ordered By: Junior Gonsales/Other Patient Handouts: DVT, DVT Complications, DVT Prevent, DVT Tx, Embolism Pulmonary Dc, Enoxaparin Sodium Porcine Solution for injection Admission Data Admit Date/Time: 03/11/19 18:13 Attending Provider: Junior Peña Admit Provider: Bebo Fang Primary Care Provider: Sonya Ruiz Other Interventions: Discharge Summary Assessment (RN) Last Done: 03/12/19 16:56 DC Date/Time DO NOT enter until pt leaves facility: 03/12/19 17:39 Coding Level of Care Code 37269 OBS Care - Discharge Diagnoses Pulmonary embolism, bilateral I26.99 DVT of leg (deep venous thrombosis) I82.409 Hypertension I10 Depression F32.9 Post traumatic stress disorder F43.10
== END 2019-03-12 17:39 | disposition home or self-care (01) | DRG 299 ==
LOC: ED 15:06 → 2S 18:13 → SUATTDRO 18:13 → INTOOBSV 18:13 → 2S 20:15

== ENCOUNTER 2020-04-03 20:42 | Inpatient (IN) ==
--- NOTE | 2020-04-03 20:54 | Emergency Department Note ---
Impression & Plan Bowel perforation, Abdominal pain, Hypokalemia, Encounter for smoking cessation counseling ED Provider Note NAME: AFSHAN BEE AGE: 59 SEX: F : 1960 ARRIVES VIA: Ambulance INFORMANT: Patient, ED PROVIDER(S): Leopoldo Pereira MD Chief Complaint: Nausea, abdominal pain, chest pain HPI: Patient does present with the above complaints. The patient states initially she had nausea beginning this morning subsequently developed abdominal pain which she describes as diffuse and intermittent in nature. The patient is also had some chest pain which she describes as left-sided nonradiating. It is not exertional or positional. The patient denies any recent trauma. The patient is concerned as she has a prior history of ulceration. The patient did have an EGD completed in January by Dr. Rocha that showed at the patient had a normal esophagus but did show ulceration at the GJ anastomosis. The patient do es use tobacco but denies any alcohol or drug use. The patient has had dry heaves but no active vomiting. Patient denies any blood in the stool or urine. The patient is not had any issues with urination or defecation. The patient denies any recent travel fevers or chills. Patient does have a remote history of Juliocesar-en-Y gastric bypass completed in 2008. ROS: See HPI for pertinent positives and negatives. A total of 10 systems were reviewed and otherwise negative. Past medical history: See below Surgical history: See below Social history: See below Physical Exam: GENERAL: Uncomfortable in appearance, mild distress EYE EXAM: Normal conjunctiva. PERRL, no anisocoria and EOM's grossly intact w/o pain. NECK: Supple, no nuchal rigidity, no adenopathy, non-tender. No signs of meningismus. LUNGS: Clear to auscultation. Normal chest wall mechanics. HEART: NSR, no MRG. ABDOMEN: Abdomen soft, mild diffuse discomfort throughout, normo-active bowel sounds, no masses, no rebound or guarding. BACK: No CVA TTP. SKIN: No rashes and no bruising. UPPER EXTREMITIES: Upper extremities are grossly normal. LOWER EXTREMITIES: Grossly normal, no edema. NEURO EXAM: A&O x3, cranial nerves II-XII grossly intact, normal speech, moves all 4 extremities on command w/o issue. Differential diagnoses: Appendicitis, ovarian cyst, ovarian torsion, ectopic , TOA, PID, infections, diverticulitis, UTI, obstruction, mesenteric ischemia, aortic pathology, inflammatory bowel disease, renal colic, PUD, pancreatitis, biliary pathology, hernia, volvulus, constipation, as well as other pathologies. Course: Patient was seen and evaluated the bedside. Full history physical exam was performed. EKG: Indication: Sinus rhythm, rate of 77, normal [place] and QRS, borderline prolonged QTC, normal axis. Tube inversion in lead III noncontiguous leads. Imaging Studies: Radiology results as stated below per my review in the radiologist's interpretation: CT angiography of the chest Small hiatal hernia, no acute PE, small amount of free air seen in the upper abdomen CT abdomen pelvis with contrast: There is free air most prominently in the left upper quadrant of the abdomen. Source of free air could be high since the GJ anastomosis site. There is mild fluid distention of the excluded stomach repair of a small amount of free fluid seen in the abdomen pelvis. L2-S1 posterior spinal fusion intact hardware. Cardiac monitoring: An order was placed for continuous cardiac monitoring. The monitor shows a rate of 82 with sinus rhythm. MDM: Patient did present with concern for abdominal pain. The patient did have bladder completed with CT abdomen pelvis and CT angiography of the chest. The patient's CT angiography did show concern for small amount of free air in the upper abdomen. Given this I did order Zosyn, MRSA swab, blood cultures, lactate. Patient CT abdomen pelvis does show concern for free air most prominent left upper quadrant. I did also receive a phone call subsequently by Dr. Jovel of stat read. Patient was also ordered additional pain medication. I did speak with Dr. Layne of general surgery about the patient's findings I did inform the patient of the findings. The patient did have a white count of 17 with a left shift. Patient's kidney function is unremarkable. Troponin not detectable. I counseled patient on smoking cessation for 3 minutes. Treatment options discussed and resources provided. Patient was receptive. Urinalysis negative. Patient admitted to Dr. Licea of the hospitalist service. Past Med/Surg History Medical History Abdominal pain Alcohol abuse Anxiety Depression Hx of diabetes mellitus diet controlled/no meds since gastric bypass Hypertension Lumbar herniated disc L2-L5 Medical marijuana use Mixed connective tissue disease nonspecific "mild, lupus-like" Numbness B/L; L>R LE/foot r/t back Post traumatic stress disorder Spinal stenosis at L4-L5 level Spinal stenosis, lumbar region with neurogenic claudication Superior mesenteric vein thrombosis Urinary incontinence, urge chronic Venous insufficiency Surgical History History of carpal tunnel surgery of left wrist History of carpal tunnel surgery of right wrist History of section History of colonoscopy History of gastric bypass History of hand surgery History of tonsillectomy and adenoidectomy History of tooth extraction Hx of abdominal surgery repair mesenteric vein Hx of cervical spine surgery Hx of exploratory laparotomy Hx of hysterectomy, total Hx of nasal septoplasty Hx of shoulder surgery left Family History Father Family history of diabetes mellitus Hypertension Mother Arthritis Breast cancer Bronchitis Asthma Family/Other Breast cancer Grandmother (Paternal) Family hx of colon cancer Other No family history of adverse response to anesthesia Denies family history of Ovarian cancer Prostate cancer Myocardial infarction Colorectal cancer Social History Smoking Status: Current every day smoker Tobacco Type: Cigarettes Age Started Using Tobacco: 24; packs per day: 1; Cigarettes Per Day: 20+; Second Hand Exposure: Yes (father smoked); Hx Alcohol Use: No Hx Substance Use: Yes (medical marijuana) Last Used Substance: Unknown Last Used Substance Other:: MONTHS Preferred Language: Ghanaian Communication Ability: Effective Visual Impairment: No Limitations Hearing Ability: Normal Life Sciences Instructor Required: No Beliefs That Will Affect Care: None marital status: single Current Living Situation: Alone current occupational status: retired Feels Safe at Home: Yes Childhood Exposure to Second-Hand Smoke: Yes Dental Care, Regularly: Yes Physical Activity Frequency: Does not Exercise Seatbelt Use: always Sunscreen Use: Yes Do you think of yourself as: straight/heterosexual Assistive Devices: Cane and Glasses Allergies Allergies Allergy/AdvReac Type Severity Reaction Status Date / Time pollen extracts Allergy Mild watery eyes Verified 04/03/20 22:10 Sulfa (Sulfonamide Allergy Unknown unknown Verified 04/03/20 22:10 Antibiotics) reaction happened in childhood levofloxacin [From Levaquin] AdvReac Severe tendon Verified 04/03/20 22:10 tearing codeine AdvReac Intermediate agitation, Verified 04/03/20 22:10 irritability NSAIDS (Non-Steroidal AdvReac Unknown advised to Verified 04/03/20 22:11 Anti-Inflamma avoid s/p gastric bypass Home Meds Home Medications Medication Instructions Recorded Confirmed calcium carbonate 600 mg calcium 600 mg PO QAM 07/06/18 04/03/20 (1,500 mg) tablet cholecalciferol (vitamin D3) 5,000 unit PO QAM 08/11/18 04/03/20 [Vitamin D3] biotin 1,000 mcg PO QAM 09/28/18 04/03/20 diphenhydramine HCl [Benadryl] 25 mg PO TID PRN 09/28/18 04/03/20 hydrochlorothiazide 25 mg PO QAM 02/03/20 04/03/20 Previous Rx's Medication Instructions Recorded acetaminophen [Mapap 650 mg PO Q4H PRN #30 tab 03/12/19 (acetaminophen)] omeprazole 40 mg capsule,delayed 40 mg PO BID 30 Days #60 cap 02/22/20 release sucralfate 100 mg/mL oral 5 ml PO QID #420 ml 02/22/20 suspension Results & Data (ED) Vital Signs Vital Signs - 24 hr 04/03/20 20:55 04/03/20 20:56 04/03/20 21:00 Temperature 36.8 C Temperature Source Oral Pulse Rate 72 74 75 Pulse Rate from SpO2 Sensor 74 77 Pulse Rhythm Regular Pulse Strength Normal Respiratory Rate 20 28 H 24 Respiratory Depth Normal Blood Pressure 165/120 H 165/120 H Blood Pressure Mean 135 135 Blood Pressure Position Lying Pulse Oximetry 100 100 100 Oxygen Delivery Method Room Air Sepsis Recent Fever Within 48 Hours No Sepsis New/Unexplained Change in Mental Status N/A Sepsis Action Taken by Nursing No Action Required 04/03/20 21:06 04/03/20 21:20 04/03/20 21:57 Temperature Temperature Source Pulse Rate Pulse Rate from SpO2 Sensor 71 Pulse Rhythm Pulse Strength Respiratory Rate 18 Respiratory Depth Blood Pressure Blood Pressure Mean Blood Pressure Position Pulse Oximetry 98 98 Oxygen Delivery Method Nasal Cannula Sepsis Recent Fever Within 48 Hours Sepsis New/Unexplained Change in Mental Status Sepsis Action Taken by Nursing 04/03/20 21:58 04/03/20 22:00 Temperature Temperature Source Pulse Rate 79 82 Pulse Rate from SpO2 Sensor 80 89 Pulse Rhythm Pulse Strength Respiratory Rate 37 H 29 H Respiratory Depth Blood Pressure 156/69 H Blood Pressure Mean 98 Blood Pressure Position Pulse Oximetry 98 95 Oxygen Delivery Method Sepsis Recent Fever Within 48 Hours Sepsis New/Unexplained Change in Mental Status Sepsis Action Taken by Snf Medications Current Medication List: was personally reviewed by me Laboratory Data Attestation: I reviewed the patient's lab results. Result diagrams: 04/03/20 20:50 04/03/20 20:50 Lab Results 04/03/20 04/03/20 04/03/20 Range/Units 20:50 20:50 21:40 WBC 17.38 H (4.8-10.8) K/uL RBC 4.56 (4.2-5.4) M/uL Hgb 11.5 L (12.0-16.0) g/dL Hct 35.3 L (37-47) % MCV 77.4 L (80-100) fL MCH 25.2 (25-34) pg MCHC 32.6 (32-36) g/dL RDW Std Deviation 56.0 H (36.4-46.3) fL RDW Coeff of Keith 20.3 H (11.5-14.5) % Plt Count 410 H (130-400) K/uL MPV 10.5 H (7.4-10.4) fL Immature Gran % (Auto) 0.2 % Neut % (Auto) 84.6 % Lymph % (Auto) 9.4 % [place] % (Auto) 4.7 % Eos % (Auto) 0.9 % Baso % (Auto) 0.2 % Neut # (Auto) 14.70 H (1.4-6.5) K/uL Lymph # (Auto) 1.64 (1.2-3.4) K/uL [place] # (Auto) 0.81 H (0.11-0.59) K/uL Eos # (Auto) 0.16 (0-0.5) K/uL Baso # (Auto) 0.03 (0-0.2) K/uL Immature Gran # (Auto) 0.04 H (0.00-0.02) K/uL Anisocytosis Present Sodium 140 (136-145) mmol/L Potassium 3.2 L (3.5-5.1) mmol/L Chloride 108 H (98-107) mmol/L Carbon Dioxide 23 (21-32) mmol/L Anion Gap 10.0 (3-11) BUN 13 (7-18) mg/dl Creatinine 0.63 (0.6-1.2) mg/dl Est Cr Clr Drug Dosing 89.6 ml/min Est GFR ( Amer) 113.0 Est GFR (Non-Af Amer) 97.5 BUN/Creatinine Ratio 20.0 (10-20) Glucose 151 H (70-99) mg/dl Calcium 9.7 (8.5-10.1) mg/dl Total Bilirubin 0.4 (0.2-1) mg/dl AST 11 L (15-37) U/L ALT 15 (12-78) U/L Alkaline Phosphatase 100 (45-117) U/L Troponin I < 0.015 (0-0.045) ng/ml Total Protein 7.0 (6.4-8.2) gm/dl Albumin 3.5 (3.4-5.0) gm/dl Globulin 3.5 (2.5-4.0) gm/dl Albumin/Globulin Ratio 1.0 (0.9-2) Lipase 50 L (73-393) U/L Urine Color Dark Yellow Urine Appearance Clear (Clear) Urine pH 5.0 (4.5-7.5) Ur Specific [place] 1.027 (1.000-1.030) Urine Protein Negative (Negative) Urine Glucose (UA) Negative (Negative) Urine Ketones 1+ H (Negative) Urine Blood Negative (Negative) Urine Nitrite Negative (Negative) Urine Bilirubin Negative (Negative) Urine Urobilinogen Negative (Negative) Ur Leukocyte Esterase Negative (Negative) COVID-19 Eval Order SARS-CoV-2, RNA, NAAT (NEGATIVE) 04/03/20 04/03/20 Range/Units 22:20 22:20 WBC (4.8-10.8) K/uL RBC (4.2-5.4) M/uL Hgb (12.0-16.0) g/dL Hct (37-47) % MCV (80-100) fL MCH (25-34) pg MCHC (32-36) g/dL RDW Std Deviation (36.4-46.3) fL RDW Coeff of Keith (11.5-14.5) % Plt Count (130-400) K/uL MPV (7.4-10.4) fL Immature Gran % (Auto) % Neut % (Auto) % Lymph % (Auto) % [place] % (Auto) % Eos % (Auto) % Baso % (Auto) % Neut # (Auto) (1.4-6.5) K/uL Lymph # (Auto) (1.2-3.4) K/uL [place] # (Auto) (0.11-0.59) K/uL Eos # (Auto) (0-0.5) K/uL Baso # (Auto) (0-0.2) K/uL Immature Gran # (Auto) (0.00-0.02) K/uL Anisocytosis Sodium (136-145) mmol/L Potassium (3.5-5.1) mmol/L Chloride (98-107) mmol/L Carbon Dioxide (21-32) mmol/L Anion Gap (3-11) BUN (7-18) mg/dl Creatinine (0.6-1.2) mg/dl Est Cr Clr Drug Dosing ml/min Est GFR ( Amer) Est GFR (Non-Af Amer) BUN/Creatinine Ratio (10-20) Glucose (70-99) mg/dl Calcium (8.5-10.1) mg/dl Total Bilirubin (0.2-1) mg/dl AST (15-37) U/L ALT (12-78) U/L Alkaline Phosphatase (45-117) U/L Troponin I (0-0.045) ng/ml Total Protein (6.4-8.2) gm/dl Albumin (3.4-5.0) gm/dl Globulin (2.5-4.0) gm/dl Albumin/Globulin Ratio (0.9-2) Lipase (73-393) U/L Urine Color Urine Appearance (Clear) Urine pH (4.5-7.5) Ur Specific [place] (1.000-1.030) Urine Protein (Negative) Urine Glucose (UA) (Negative) Urine Ketones (Negative) Urine Blood (Negative) Urine Nitrite (Negative) Urine Bilirubin (Negative) Urine Urobilinogen (Negative) Ur Leukocyte Esterase (Negative) COVID-19 [facility] SARS-[facility]-2, RNA, NAAT NEGATIVE (NEGATIVE) Administered Medications Discontinued Medications Fentanyl Citrate (Fentanyl Citrate 100 Mcg/2 Ml Vial) 50 mcg IV NOW STA Stop: 04/03/20 22:07 Last Admin: 04/03/20 22:12 Dose: 50 mcg Documented by: [id number] Fentanyl Citrate (Fentanyl Citrate 100 Mcg/2 Ml Vial) 50 mcg IV NOW STA Stop: 04/03/20 22:29 Last Admin: 04/03/20 22:49 Dose: 50 mcg Documented by: [id number] Hydromorphone HCl (Hydromorphone Inj 0.5 Mg/0.5 Ml Syr) 0.5 mg IV NOW STA Stop: 04/03/20 21:17 Last Admin: 04/03/20 21:22 Dose: 0.5 mg Documented by: [id number] Sodium Chloride (Nss 1000ml) 1,000 mls @ 999 mls/hr IV .Q1H1M ONE Stop: 04/03/20 22:06 Last Admin: 04/03/20 21:25 Dose: 999 mls/hr Documented by: [id number] Sodium Chloride (Nss 1000ml) 1,000 mls @ 999 mls/hr IV .Q1H1M ONE Stop: 04/03/20 23:06 Last Admin: 04/03/20 23:11 Dose: 999 mls/hr Documented by: [id number] Piperacillin Sod/Tazobactam Sod (Zosyn) 4.5 gm in 120 mls @ 240 mls/hr IV NOW ONE Stop: 04/03/20 22:44 Last Admin: 04/03/20 22:40 Dose: 240 mls/hr Documented by: [id number] Ioversol (Optiray 320 125ml) 118 ml IV ONCE ONE Stop: 04/03/20 21:47 Last Admin: 04/03/20 21:47 Dose: 118 ml Documented by: [id number] Metoclopramide HCl (Metoclopramide Hcl Inj 5 Mg/Ml 2 Ml Vial) 10 mg IV NOW STA Stop: 04/03/20 22:07 Last Admin: 04/03/20 22:13 Dose: 10 mg Documented by: [id number] Morphine Sulfate (Morphine Sulfate 4 Mg/Ml 1 Ml Carp\\Vial) 4 mg IV NOW STA Stop: 04/03/20 21:07 Last Admin: 04/03/20 21:28 Dose: Not Given Documented by: [id number] Ondansetron HCl (Ondansetron Inj 2 Mg/Ml 2 Ml Vial) 4 mg IV NOW STA Stop: 04/03/20 21:07 Last Admin: 04/03/20 21:20 Dose: 4 mg Documented by: [id number] Discharge Plan Visit Data Chief Complaint: Abdominal Pain Stated Complaint: CHEST PAIN/ABDOMINAL PAIN ED Provider: eLopoldo ePreira Discharge Problem: Bowel perforation, Abdominal pain, Hypokalemia, Encounter for smoking cessation counseling Forms Stand Alone Forms: [facility] [place] [employer] Prescriptions Prescriptions: No Action calcium carbonate [Calcium 600] 600 mg calcium (1,500 mg) tablet 600 mg PO QAM RF: 0 sucralfate [Carafate] 100 mg/mL suspension 5 ml PO QID Qty: 420 RF: 2 omeprazole 40 mg capsule,delayed release(DR/EC) 40 mg PO BID 30 Days Qty: 60 RF: 2 cholecalciferol (vitamin D3) [Vitamin D3] 5,000 unit Tablet 5,000 unit PO QAM RF: 0 biotin 1,000 mcg Tablet,Chewable 1,000 mcg PO QAM RF: 0 diphenhydramine HCl [Benadryl] 25 mg Capsule 25 mg PO TID PRN (Reason: Allergy Symptoms) RF: 0 hydrochlorothiazide 25 mg tablet 25 mg PO QAM RF: 0 acetaminophen [Mapap (acetaminophen)] 325 mg Tablet 650 mg PO Q4H PRN (Reason: pain) Qty: 30 RF: 0 Discharge Problem: Abdominal pain Qualifiers: Abdominal location: generalized Qualified Code(s): R10.84 - Generalized abdominal pain
[2020-04-03] MEDS ORDERED: ONDANSETRON INJ 2 MG/ML 2 ML VIAL IV STA (21:06)
[2020-04-03] MEDS ORDERED: MoRPHine SULFATE 4 MG/ML 1 ML CARP\\VIAL IV STA (21:06)
[2020-04-03] MEDS ORDERED: SODIUM CHLORIDE 0.9% 1000ML 1,000 ML IV ONE ×2 (21:06→22:06)
[2020-04-03] MEDS ORDERED: HYDROmorphone INJ 0.5 MG/0.5 ML SYR IV STA (21:16)
[2020-04-03] MEDS ORDERED: HYDROmorphone INJ 0.5 MG/0.5 ML SYR IV PRN (21:16)
[2020-04-03 21:18] LABS: Basophils # (auto) 0.03 K/uL (0-0.2); Basophils % (auto) 0.2 %; Eosinophils # (auto) 0.16 K/uL (0-0.5); Eosinophils % (auto) 0.9 %; Hematocrit (blood only) 35.3 % (37-47); Hemoglobin 11.5 g/dL (12.0-16.0); Immature Granulocytes # (auto) 0.04 K/uL (0.00-0.02); Immature Granulocytes % (auto) 0.2 %; Lymphocytes # (auto) 1.64 K/uL (1.2-3.4); Lymphocytes % (auto) 9.4 %; Mean Corpuscular Hemoglobin 25.2 pg (25-34); Mean Corpuscular Hgb Conc 32.6 g/dL (32-36); Mean Corpuscular Volume 77.4 fL (80-100); Mean Platelet Volume 10.5 fL (7.4-10.4); Monocytes # (auto) 0.81 K/uL (0.11-0.59); Monocytes % (auto) 4.7 %; Neutrophils % (auto) 84.6 %; Platelet Count 410 K/uL (130-400); RDW Coefficient of Variation 20.3 % (11.5-14.5); Red Blood Count 4.56 M/uL (4.2-5.4); White Blood Count 17.38 K/uL (4.8-10.8)
[2020-04-03 21:25] LABS: Alanine Aminotransferase 15 U/L (12-78); Albumin Level 3.5 gm/dl (3.4-5.0); Aspartate Aminotransferase 11 U/L (15-37); Blood Urea Nitrogen 13 mg/dl (7-18); Calcium 9.7 mg/dl (8.5-10.1); Carbon Dioxide 23 mmol/L (21-32); Chloride 108 mmol/L (98-107); Creatinine Clr Calc Pharmacy 89.6 ml/min; Est GFR (Non-African American) 97.5; Glucose 151 mg/dl (70-99); Lipase 50 U/L (73-393); Potassium 3.2 mmol/L (3.5-5.1); Sodium 140 mmol/L (136-145)
[2020-04-03 21:30] LABS: Alkaline Phosphatase 100 U/L (45-117); Bilirubin,Total 0.4 mg/dl (0.2-1); Globulin 3.5 gm/dl (2.5-4.0); Troponin I < 0.015 ng/ml (0-0.045)
[2020-04-03] MEDS ORDERED: OPTIRAY 320 125ml IV ONE (21:46)
[2020-04-03 21:47] LABS: Anisocytosis Present
[2020-04-03] MEDS ORDERED: fentaNYL citrate 100 MCG/2 ML VIAL IV STA ×2 (22:06→22:28)
[2020-04-03] MEDS ORDERED: METOCLOPRAMIDE HCL INJ 5 MG/ML 2 ML VIAL IV STA (22:06)
[2020-04-03] MEDS ORDERED: PIPERACILL/TAZOBAC CONSULT ACTIVE PRN (22:15)
[2020-04-03] MEDS ORDERED: PIPERACILLIN/TAZOBACTAM 4.5 GM/120 ML BAG IV ONE (22:15)
[2020-04-03 22:30] LABS: Appearance Urine Clear (Clear); Bilirubin Urine Negative (Negative); Blood Urine Negative (Negative); Color Urine Dark Yellow; Glucose Urine UA Negative (Negative); Ketones Urine 1+ (Negative); Leukocyte Esterase Urine Negative (Negative); Nitrite Urine Negative (Negative); Protein Urine Negative (Negative); Specific Gravity Urine 1.027 (1.000-1.030); Urobilinogen Urine Negative (Negative)
--- NOTE | 2020-04-03 23:19 | Surgery Consultation ---
Date of Consultation April 03, 2020 Assessment & Plan (1) Bowel perforation: This patient has a history of having had gastric bypass surgery and has a long history of smoking and has decreased to a pack a day. Prior to that which has only been for about a month or so she was smoking 2 packs a day which significantly puts her at risk for marginal ulceration which was seen on an EGD about 2 months ago. I suspect that is the site of her visceral perforation. I explained that I would recommend exploratory laparotomy. Plan would be to identify the site of perforation and if it is a marginal ulcer I would oversew it at this time and hopefully be able to place a Godfrey patch. She understands all of that. I explained the possible complications and answered her questions and she has signed a consent form. History of Present Illness Reason for Consultation: Abdominal pain and intra-abdominal free air Requesting Physician: Dr. Pereira History of Present Illness I been asked by Dr. Pereira to see this 59-year-old female who presented to the emergency room with acutely escalated abdominal pain mostly in the upper abdomen. The patient has been dealing with abdominal discomfort since October. She underwent gastric bypass surgery back in about 2008. She was smoking 2 packs a day but has decreased to 1 pack a day. The abdominal pain was evaluated with an EGD and she was found to have an ulceration. She is being treated for that but developed severe abdominal pain earlier today. She had some nausea but did not vomit. She had no fever but thinks she had chills. Her bowels have been moving. There is no melena or hematochezia. She has never had pain this severe in the past. Allergies Allergy/AdvReac Type Severity Reaction Status Date / Time pollen extracts Allergy Mild watery eyes Verified 04/03/20 22:10 Sulfa (Sulfonamide Allergy Unknown unknown Verified 04/03/20 22:10 Antibiotics) reaction happened in childhood levofloxacin [From Levaquin] AdvReac Severe tendon Verified 04/03/20 22:10 tearing codeine AdvReac Intermediate agitation, Verified 04/03/20 22:10 irritability NSAIDS (Non-Steroidal AdvReac Unknown advised to Verified 04/03/20 22:11 Anti-Inflamma avoid s/p gastric bypass Home Medications Medication Instructions Recorded Confirmed Type calcium carbonate 600 mg calcium 600 mg PO QAM 07/06/18 04/03/20 History (1,500 mg) tablet cholecalciferol (vitamin D3) 5,000 unit PO QAM 08/11/18 04/03/20 History [Vitamin D3] biotin 1,000 mcg PO QAM 09/28/18 04/03/20 History diphenhydramine HCl [Benadryl] 25 mg PO TID PRN 09/28/18 04/03/20 History acetaminophen [Mapap 650 mg PO Q4H PRN #30 tab 03/12/19 04/03/20 Rx (acetaminophen)] hydrochlorothiazide 25 mg PO QAM 02/03/20 04/03/20 History omeprazole 40 mg capsule,delayed 40 mg PO BID 30 Days #60 cap 02/22/20 04/03/20 Rx release sucralfate 100 mg/mL oral 5 ml PO QID #420 ml 02/22/20 04/03/20 Rx suspension Patient History Medical History Abdominal pain Alcohol abuse Anxiety Depression Hx of diabetes mellitus diet controlled/no meds since gastric bypass Hypertension Lumbar herniated disc L2-L5 Medical marijuana use Mixed connective tissue disease nonspecific "mild, lupus-like" Numbness B/L; L>R LE/foot r/t back Post traumatic stress disorder Spinal stenosis at L4-L5 level Spinal stenosis, lumbar region with neurogenic claudication Superior mesenteric vein thrombosis Urinary incontinence, urge chronic Venous insufficiency Surgical History History of carpal tunnel surgery of left wrist History of carpal tunnel surgery of right wrist History of section History of colonoscopy History of gastric bypass History of hand surgery History of tonsillectomy and adenoidectomy History of tooth extraction Hx of abdominal surgery repair mesenteric vein Hx of cervical spine surgery Hx of exploratory laparotomy Hx of hysterectomy, total Hx of nasal septoplasty Hx of shoulder surgery left Family History Father Family history of diabetes mellitus Hypertension Mother Arthritis Breast cancer Bronchitis Asthma Family/Other Breast cancer Grandmother (Paternal) Family hx of colon cancer Other No family history of adverse response to anesthesia Denies family history of Ovarian cancer Prostate cancer Myocardial infarction Colorectal cancer Social History (Updated 04/03/20 @ 23:24 by Mook Layne MD) Smoking Status: Current every day smoker Tobacco Type: Cigarettes Age Started Using Tobacco: 24; packs per day: 1; Cigarettes Per Day: 20+; Second Hand Exposure: Yes (father smoked); Hx Alcohol Use: No (Has history of alcoholism but has been sober for the last 9 months) Hx Substance Use: Yes (medical marijuana) Last Used Substance: Unknown Last Used Substance Other:: MONTHS Preferred Language: Macedonian Communication Ability: Effective Visual Impairment: No Limitations Hearing Ability: Normal Document Coordinator Required: No Beliefs That Will Affect Care: None marital status: single Current Living Situation: Alone current occupational status: retired Feels Safe at Home: Yes Childhood Exposure to Second-Hand Smoke: Yes Dental Care, Regularly: Yes Physical Activity Frequency: Does not Exercise Seatbelt Use: always Sunscreen Use: Yes Do you think of yourself as: straight/heterosexual Assistive Devices: Cane and Glasses Physical Exam Constitutional: + acute distress Neck: trachea midline, no thyromegaly Respiratory: normal respiratory effort, lungs clear to auscultation Cardiovascular: Rate/Rhythm: regular rate and regular rhythm Gastrointestinal (Abdomen): Inspection/Auscultation: + abdomen distended (Mild), + abdominal surgical scar and + hypoactive bowel sounds Percussion/Palpation: + abdomen tender (Throughout abdomen but more pronounced in the upper abdomen) and + abdomen firm Results & Data ([facility]) Vital Signs (Past 12 Hours) Vital Signs Temp Pulse Resp BP Pulse Ox 04/03/20 22:00 82 29 H 95 04/03/20 21:58 79 37 H 156/69 H 98 04/03/20 21:57 18 04/03/20 21:20 98 04/03/20 21:06 98 04/03/20 21:00 75 24 165/120 H 100 04/03/20 20:56 36.8 C 74 28 H 165/120 H 100 04/03/20 20:55 72 20 100 Laboratory Results 04/03/20 04/03/20 04/03/20 Range/Units 23:01 23:01 22:20 WBC (4.8-10.8) K/uL RBC (4.2-5.4) M/uL Hgb (12.0-16.0) g/dL Hct (37-47) % MCV (80-100) fL MCH (25-34) pg MCHC (32-36) g/dL RDW Std Deviation (36.4-46.3) fL RDW Coeff of Keith (11.5-14.5) % Plt Count (130-400) K/uL MPV (7.4-10.4) fL Immature Gran % (Auto) % Neut % (Auto) % Lymph % (Auto) % [place] % (Auto) % Eos % (Auto) % Baso % (Auto) % Neut # (Auto) (1.4-6.5) K/uL Lymph # (Auto) (1.2-3.4) K/uL [place] # (Auto) (0.11-0.59) K/uL Eos # (Auto) (0-0.5) K/uL Baso # (Auto) (0-0.2) K/uL Immature Gran # (Auto) (0.00-0.02) K/uL Anisocytosis Sodium (136-145) mmol/L Potassium (3.5-5.1) mmol/L Chloride (98-107) mmol/L Carbon Dioxide (21-32) mmol/L Anion Gap (3-11) BUN (7-18) mg/dl Creatinine (0.6-1.2) mg/dl Est Cr Clr Drug Dosing ml/min Est GFR ( Amer) Est GFR (Non-Af Amer) BUN/Creatinine Ratio (10-20) Glucose (70-99) mg/dl Lactate Pending Calcium (8.5-10.1) mg/dl Magnesium Pending Total Bilirubin (0.2-1) mg/dl AST (15-37) U/L ALT (12-78) U/L Alkaline Phosphatase (45-117) U/L Troponin I (0-0.045) ng/ml Total Protein (6.4-8.2) gm/dl Albumin (3.4-5.0) gm/dl Globulin (2.5-4.0) gm/dl Albumin/Globulin Ratio (0.9-2) Lipase (73-393) U/L Urine Color Urine Appearance (Clear) Urine pH (4.5-7.5) Ur Specific [place] (1.000-1.030) Urine Protein (Negative) Urine Glucose (UA) (Negative) Urine Ketones (Negative) Urine Blood (Negative) Urine Nitrite (Negative) Urine Bilirubin (Negative) Urine Urobilinogen (Negative) Ur Leukocyte Esterase (Negative) Nasal Screen MRSA (PCR) COVID-19 Eval Order SARS-CoV-2, RNA, NAAT NEGATIVE (NEGATIVE) 04/03/20 04/03/20 04/03/20 Range/Units 22:20 22:20 21:40 WBC (4.8-10.8) K/uL RBC (4.2-5.4) M/uL Hgb (12.0-16.0) g/dL Hct (37-47) % MCV (80-100) fL MCH (25-34) pg MCHC (32-36) g/dL RDW Std Deviation (36.4-46.3) fL RDW Coeff of Keith (11.5-14.5) % Plt Count (130-400) K/uL MPV (7.4-10.4) fL Immature Gran % (Auto) % Neut % (Auto) % Lymph % (Auto) % [place] % (Auto) % Eos % (Auto) % Baso % (Auto) % Neut # (Auto) (1.4-6.5) K/uL Lymph # (Auto) (1.2-3.4) K/uL [place] # (Auto) (0.11-0.59) K/uL Eos # (Auto) (0-0.5) K/uL Baso # (Auto) (0-0.2) K/uL Immature Gran # (Auto) (0.00-0.02) K/uL Anisocytosis Sodium (136-145) mmol/L Potassium (3.5-5.1) mmol/L Chloride (98-107) mmol/L Carbon Dioxide (21-32) mmol/L Anion Gap (3-11) BUN (7-18) mg/dl Creatinine (0.6-1.2) mg/dl Est Cr Clr Drug Dosing ml/min Est GFR ( Amer) Est GFR (Non-Af Amer) BUN/Creatinine Ratio (10-20) Glucose (70-99) mg/dl Lactate Calcium (8.5-10.1) mg/dl Magnesium Total Bilirubin (0.2-1) mg/dl AST (15-37) U/L ALT (12-78) U/L Alkaline Phosphatase (45-117) U/L Troponin I (0-0.045) ng/ml Total Protein (6.4-8.2) gm/dl Albumin (3.4-5.0) gm/dl Globulin (2.5-4.0) gm/dl Albumin/Globulin Ratio (0.9-2) Lipase (73-393) U/L Urine Color Dark Yellow Urine Appearance Clear (Clear) Urine pH 5.0 (4.5-7.5) Ur Specific [place] 1.027 (1.000-1.030) Urine Protein Negative (Negative) Urine Glucose (UA) Negative (Negative) Urine Ketones 1+ H (Negative) Urine Blood Negative (Negative) Urine Nitrite Negative (Negative) Urine Bilirubin Negative (Negative) Urine Urobilinogen Negative (Negative) Ur Leukocyte Esterase Negative (Negative) Nasal Screen MRSA (PCR) Pending COVID-19 Eval Order Covid19 IDNow [email or web address] SARS-CoV-2, RNA, NAAT (NEGATIVE) 04/03/20 04/03/20 Range/Units 20:50 20:50 WBC 17.38 H (4.8-10.8) K/uL RBC 4.56 (4.2-5.4) M/uL Hgb 11.5 L (12.0-16.0) g/dL Hct 35.3 L (37-47) % MCV 77.4 L (80-100) fL MCH 25.2 (25-34) pg MCHC 32.6 (32-36) g/dL RDW Std Deviation 56.0 H (36.4-46.3) fL RDW Coeff of Keith 20.3 H (11.5-14.5) % Plt Count 410 H (130-400) K/uL MPV 10.5 H (7.4-10.4) fL Immature Gran % (Auto) 0.2 % Neut % (Auto) 84.6 % Lymph % (Auto) 9.4 % [place] % (Auto) 4.7 % Eos % (Auto) 0.9 % Baso % (Auto) 0.2 % Neut # (Auto) 14.70 H (1.4-6.5) K/uL Lymph # (Auto) 1.64 (1.2-3.4) K/uL [place] # (Auto) 0.81 H (0.11-0.59) K/uL Eos # (Auto) 0.16 (0-0.5) K/uL Baso # (Auto) 0.03 (0-0.2) K/uL Immature Gran # (Auto) 0.04 H (0.00-0.02) K/uL Anisocytosis Present Sodium 140 (136-145) mmol/L Potassium 3.2 L (3.5-5.1) mmol/L Chloride 108 H (98-107) mmol/L Carbon Dioxide 23 (21-32) mmol/L Anion Gap 10.0 (3-11) BUN 13 (7-18) mg/dl Creatinine 0.63 (0.6-1.2) mg/dl Est Cr Clr Drug Dosing 89.6 ml/min Est GFR ( Amer) 113.0 Est GFR (Non-Af Amer) 97.5 BUN/Creatinine Ratio 20.0 (10-20) Glucose 151 H (70-99) mg/dl Lactate Calcium 9.7 (8.5-10.1) mg/dl Magnesium Total Bilirubin 0.4 (0.2-1) mg/dl AST 11 L (15-37) U/L ALT 15 (12-78) U/L Alkaline Phosphatase 100 (45-117) U/L Troponin I < 0.015 (0-0.045) ng/ml Total Protein 7.0 (6.4-8.2) gm/dl Albumin 3.5 (3.4-5.0) gm/dl Globulin 3.5 (2.5-4.0) gm/dl Albumin/Globulin Ratio 1.0 (0.9-2) Lipase 50 L (73-393) U/L Urine Color Urine Appearance (Clear) Urine pH (4.5-7.5) Ur Specific [place] (1.000-1.030) Urine Protein (Negative) Urine Glucose (UA) (Negative) Urine Ketones (Negative) Urine Blood (Negative) Urine Nitrite (Negative) Urine Bilirubin (Negative) Urine Urobilinogen (Negative) Ur Leukocyte Esterase (Negative) Nasal Screen MRSA (PCR) COVID-19 Eval Order SARS-CoV-2, RNA, NAAT (NEGATIVE) Diagnostic Findings CT scan of the abdomen and pelvis showed free air most prominently in the left upper quadrant of the abdomen. There was mild fluid distention of the excluded stomach and a small amount of free fluid in the abdomen and pelvis
[2020-04-03] MEDS ORDERED: PANTOPRAZOLE BOLUS/DRIP 1 EA IV STA (23:35)
--- NOTE | 2020-04-03 23:38 | History & Physical Report ---
Date of Service April 03, 2020 Assessment & Plan (1) Bowel perforation: 59yo female s/p Juliocesar-en-Y gastrojejujunostomy presenting with worsening abdominal pain, found with free air concerning for perforation. Found to have ulceration of the anastomosis site by EGD in January 2020, patient is active smoker of 1 ppd longstanding. Suspect ulcer perforation. -Patient to OR this evening with Dr. Layne -NPO -Continue Zosyn 3.375gm IV q 8 -Protonix gtt -Dilaudid PRN pain -Zofran PRN nausea -NGT post op per surgery Patient is medically optimized for surgery. She has no active cardiac conditions. No known CAD, arrhythmia or CHF. Last Echo performed in 12/2019 with EF of 60-65%. Active - able to perform 4 METS without limitation. She may proceed to surgery with no additional testing. Present on Admission?: Yes (2) Hypokalemia: K=3.2 -LR at 125mL/hr x 2 liters with KCl x 20mEq -Repeat labs in AM Present on Admission?: Yes (3) Esophageal reflux: s/p Juliocesar-en-Y gastric bypass site, history of anastomotic ulcers. On Omeprazole BID and Carafate at home. -Protonix gtt for now Present on Admission?: Yes (4) Hypertension: Improved after gastric bypass surgery. Patient currently on HCTZ -Will hold for now as patient is NPO -Monitor BP Present on Admission?: Yes (5) Bilateral pulmonary embolism: Patient with remote history of RLE DVT as well as bilateral PEs, possibly provoked - patient states the clots happened 6 months after a surgery? History of SMV occlusion as well. Has homocysteinemia listed on problem list, B12 de ficiency as well. Currently not on any blood thinners -SCDs for now -Chemo ppx when ok with General Surgery team Present on Admission?: Yes (6) Hx of diabetes mellitus: Improved after gastric bypass surgery. Presently diet controlled -Continue to monitor F/E/N - LR + 20mEq KCL x 2 liters at 125mL/hr, monitor labs in AM, NPO for now Remote history of EtOH abuse - No alcohol in over 9 months. Patient congratulated on her achievement Current tobacco use of 1ppd which is down from 2ppd- smoking cessation c ounseling. Medical marijuana use Ppx - SCDs for now Code - Full Dispo - To OR then PCU Present on Admission?: Yes History of Present Illness Chief Complaint: abdominal pain Primary Care Provider: Sonya Ruiz MD Charles Avalos is a 59yo C female with history of Juliocesar-en-Y gastrojejunostomy in 2008 with prior ulceration of the anastomosis per EGD in January 2020. Patient has had intermittent epigastric abdominal pain ongoing for several months. Pain became more severe this afternoon, radiating across entire abdomen and to left shoulder. She has nausea as well as dry heaving and chills. Denies CP/palpitations/SOB/cough/vomiting/diarrhea. No additional complaints at this time. On arrival to the ER she was afebrile, HD stable, NAD. Abdominal imaging with free air consistent with perforation. Patient in significant pain, 10/10 in severity Evaluated by General Surgery - plan for OR tonight ER Course: NSS x 2L, Fentanyl 50mcg x 2, Zofran 4mg x 1, Dilaudid 0.5mg x 1, Reglan 10mg x 1, Zosyn 4.5gm Allergies Allergy/AdvReac Type Severity Reaction Status Date / Time pollen extracts Allergy Mild watery eyes Verified 04/03/20 22:10 Sulfa (Sulfonamide Allergy Unknown unknown Verified 04/03/20 22:10 Antibiotics) reaction happened in childhood levofloxacin [From Levaquin] AdvReac Severe tendon Verified 04/03/20 22:10 tearing codeine AdvReac Intermediate agitation, Verified 04/03/20 22:10 irritability NSAIDS (Non-Steroidal AdvReac Unknown advised to Verified 04/03/20 22:11 Anti-Inflamma avoid s/p gastric bypass Home Medications Medication Instructions Recorded Confirmed Type calcium carbonate 600 mg calcium 600 mg PO QAM 07/06/18 04/03/20 History (1,500 mg) tablet cholecalciferol (vitamin D3) 5,000 unit PO QAM 08/11/18 04/03/20 History [Vitamin D3] biotin 1,000 mcg PO QAM 09/28/18 04/03/20 History diphenhydramine HCl [Benadryl] 25 mg PO TID PRN 09/28/18 04/03/20 History acetaminophen [Mapap 650 mg PO Q4H PRN #30 tab 03/12/19 04/03/20 Rx (acetaminophen)] hydrochlorothiazide 25 mg PO QAM 02/03/20 04/03/20 History omeprazole 40 mg capsule,delayed 40 mg PO BID 30 Days #60 cap 02/22/20 04/03/20 Rx release sucralfate 100 mg/mL oral 5 ml PO QID #420 ml 02/22/20 04/03/20 Rx suspension Past Med/Surg History Medical History Abdominal pain Alcohol abuse Anxiety Depression Hx of diabetes mellitus diet controlled/no meds since gastric bypass Hypertension Lumbar herniated disc L2-L5 Medical marijuana use Mixed connective tissue disease nonspecific "mild, lupus-like" Numbness B/L; L>R LE/foot r/t back Post traumatic stress disorder Spinal stenosis at L4-L5 level Spinal stenosis, lumbar region with neurogenic claudication Superior mesenteric vein thrombosis Urinary incontinence, urge chronic Venous insufficiency Surgical History History of carpal tunnel surgery of left wrist History of carpal tunnel surgery of right wrist History of section History of colonoscopy History of gastric bypass History of hand surgery History of tonsillectomy and adenoidectomy History of tooth extraction Hx of abdominal surgery repair mesenteric vein Hx of cervical spine surgery Hx of exploratory laparotomy Hx of hysterectomy, total Hx of nasal septoplasty Hx of shoulder surgery left Family History Father Family history of diabetes mellitus Hypertension Mother Arthritis Breast cancer Bronchitis Asthma Family/Other Breast cancer Grandmother (Paternal) Family hx of colon cancer Other No family history of adverse response to anesthesia Denies family history of Ovarian cancer Prostate cancer Myocardial infarction Colorectal cancer Social History Smoking Status: Current every day smoker Tobacco Type: Cigarettes Age Started Using Tobacco: 24; packs per day: 1; Cigarettes Per Day: 20+; Second Hand Exposure: Yes (father smoked); Hx Alcohol Use: No (Has history of alcoholism but has been sober for the last 9 months) Hx Substance Use: Yes (medical marijuana) Last Used Substance: Unknown Last Used Substance Other:: MONTHS Preferred Language: [place] Communication Ability: Effective Visual Impairment: No Limitations Hearing Ability: Normal Irs Agent Required: No Beliefs That Will Affect Care: None marital status: single Current Living Situation: Alone current occupational status: retired Feels Safe at Home: Yes Childhood Exposure to Second-Hand Smoke: Yes Dental Care, Regularly: Yes Physical Activity Frequency: Does not Exercise Seatbelt Use: always Sunscreen Use: Yes Do you think of yourself as: straight/heterosexual Assistive Devices: Cane and Glasses Review of Systems Review of Systems: All systems reviewed & are unremarkable except as noted in HPI & below Physical Exam Physical Exam: General: patient in significant discomfort from abdominal pain, AA&O x 4 Skin: warm, dry, intact, no rashes or lesions HEENT: NC/AT, PERRL, EOMI, anicteric sclera, conjunctiva without injection, external ear normal to inspection and nontender, nares patent, moist mucus membranes, dentition intact, no oropharyngeal lesions, neck supple, trachea midline, no LAD, no thyromegaly, no JVD Heart: +S1/S2, regular, no m/r/g Lungs: equal air entry bilaterally, no rales/rhonchi/wheezes Abd: diminished bowel sounds, abdomen soft, diffusely tender with rebound and guarding Ext: warm, 2+ pulses in UE/LE bilaterally, no clubbing/cyanosis or edema Neuro: nonfocal, patient AA&O x 4, speech intact, no facial droop, moving all extremities on command with equal strength 5/5 Results & Data Results & Data ([facility]) Vital Signs (Past 12 Hours) Vital Signs Temp Pulse Resp BP Pulse Ox 04/03/20 23:20 83 23 04/03/20 23:00 80 20 04/03/20 22:40 79 24 100 04/03/20 22:20 78 16 99 04/03/20 22:00 82 29 H 95 04/03/20 21:58 79 37 H 156/69 H 98 04/03/20 21:57 18 04/03/20 21:20 98 04/03/20 21:06 98 04/03/20 21:00 75 24 165/120 H 100 04/03/20 20:56 36.8 C 74 28 H 165/120 H 100 04/03/20 20:55 72 20 100 Laboratory Results Lab Results 04/03/20 04/03/20 04/03/20 Range/Units 20:50 20:50 21:40 WBC 17.38 H (4.8-10.8) K/uL RBC 4.56 (4.2-5.4) M/uL Hgb 11.5 L (12.0-16.0) g/dL Hct 35.3 L (37-47) % MCV 77.4 L (80-100) fL MCH 25.2 (25-34) pg MCHC 32.6 (32-36) g/dL RDW Std Deviation 56.0 H (36.4-46.3) fL RDW Coeff of Keith 20.3 H (11.5-14.5) % Plt Count 410 H (130-400) K/uL MPV 10.5 H (7.4-10.4) fL Immature Gran % (Auto) 0.2 % Neut % (Auto) 84.6 % Lymph % (Auto) 9.4 % [place] % (Auto) 4.7 % Eos % (Auto) 0.9 % Baso % (Auto) 0.2 % Neut # (Auto) 14.70 H (1.4-6.5) K/uL Lymph # (Auto) 1.64 (1.2-3.4) K/uL [place] # (Auto) 0.81 H (0.11-0.59) K/uL Eos # (Auto) 0.16 (0-0.5) K/uL Baso # (Auto) 0.03 (0-0.2) K/uL Immature Gran # (Auto) 0.04 H (0.00-0.02) K/uL Anisocytosis Present Sodium 140 (136-145) mmol/L Potassium 3.2 L (3.5-5.1) mmol/L Chloride 108 H (98-107) mmol/L Carbon Dioxide 23 (21-32) mmol/L Anion Gap 10.0 (3-11) BUN 13 (7-18) mg/dl Creatinine 0.63 (0.6-1.2) mg/dl Est Cr Clr Drug Dosing 89.6 ml/min Est GFR ( Amer) 113.0 Est GFR (Non-Af Amer) 97.5 BUN/Creatinine Ratio 20.0 (10-20) Glucose 151 H (70-99) mg/dl Lactate (0.4-2.0) mmol/L Calcium 9.7 (8.5-10.1) mg/dl Magnesium (1.8-2.4) mg/dl Total Bilirubin 0.4 (0.2-1) mg/dl AST 11 L (15-37) U/L ALT 15 (12-78) U/L Alkaline Phosphatase 100 (45-117) U/L Troponin I < 0.015 (0-0.045) ng/ml Total Protein 7.0 (6.4-8.2) gm/dl Albumin 3.5 (3.4-5.0) gm/dl Globulin 3.5 (2.5-4.0) gm/dl Albumin/Globulin Ratio 1.0 (0.9-2) Lipase 50 L (73-393) U/L Urine Color Dark Yellow Urine Appearance Clear (Clear) Urine pH 5.0 (4.5-7.5) Ur Specific [place] 1.027 (1.000-1.030) Urine Protein Negative (Negative) Urine Glucose (UA) Negative (Negative) Urine Ketones 1+ H (Negative) Urine Blood Negative (Negative) Urine Nitrite Negative (Negative) Urine Bilirubin Negative (Negative) Urine Urobilinogen Negative (Negative) Ur Leukocyte Esterase Negative (Negative) Nasal Screen MRSA (PCR) (Negative) COVID-19 Eval Order SARS-CoV-2, RNA, NAAT (NEGATIVE) 04/03/20 04/03/20 04/03/20 Range/Units 22:20 22:20 22:20 WBC (4.8-10.8) K/uL RBC (4.2-5.4) M/uL Hgb (12.0-16.0) g/dL Hct (37-47) % MCV (80-100) fL MCH (25-34) pg MCHC (32-36) g/dL RDW Std Deviation (36.4-46.3) fL RDW Coeff of Keith (11.5-14.5) % Plt Count (130-400) K/uL MPV (7.4-10.4) fL Immature Gran % (Auto) % Neut % (Auto) % Lymph % (Auto) % [place] % (Auto) % Eos % (Auto) % Baso % (Auto) % Neut # (Auto) (1.4-6.5) K/uL Lymph # (Auto) (1.2-3.4) K/uL [place] # (Auto) (0.11-0.59) K/uL Eos # (Auto) (0-0.5) K/uL Baso # (Auto) (0-0.2) K/uL Immature Gran # (Auto) (0.00-0.02) K/uL Anisocytosis Sodium (136-145) mmol/L Potassium (3.5-5.1) mmol/L Chloride (98-107) mmol/L Carbon Dioxide (21-32) mmol/L Anion Gap (3-11) BUN (7-18) mg/dl Creatinine (0.6-1.2) mg/dl Est Cr Clr Drug Dosing ml/min Est GFR ( Amer) Est GFR (Non-Af Amer) BUN/Creatinine Ratio (10-20) Glucose (70-99) mg/dl Lactate (0.4-2.0) mmol/L Calcium (8.5-10.1) mg/dl Magnesium (1.8-2.4) mg/dl Total Bilirubin (0.2-1) mg/dl AST (15-37) U/L ALT (12-78) U/L Alkaline Phosphatase (45-117) U/L Troponin I (0-0.045) ng/ml Total Protein (6.4-8.2) gm/dl Albumin (3.4-5.0) gm/dl Globulin (2.5-4.0) gm/dl Albumin/Globulin Ratio (0.9-2) Lipase (73-393) U/L Urine Color Urine Appearance (Clear) Urine pH (4.5-7.5) Ur Specific [place] (1.000-1.030) Urine Protein (Negative) Urine Glucose (UA) (Negative) Urine Ketones (Negative) Urine Blood (Negative) Urine Nitrite (Negative) Urine Bilirubin (Negative) Urine Urobilinogen (Negative) Ur Leukocyte Esterase (Negative) Nasal Screen MRSA (PCR) Negative (Negative) COVID-19 Eval Order Covid19 [facility] SARS-CoV-2, RNA, NAAT NEGATIVE (NEGATIVE) 04/03/20 04/03/20 Range/Units 23:01 23:01 WBC (4.8-10.8) K/uL RBC (4.2-5.4) M/uL Hgb (12.0-16.0) g/dL Hct (37-47) % MCV (80-100) fL MCH (25-34) pg MCHC (32-36) g/dL RDW Std Deviation (36.4-46.3) fL RDW Coeff of Keith (11.5-14.5) % Plt Count (130-400) K/uL MPV (7.4-10.4) fL Immature Gran % (Auto) % Neut % (Auto) % Lymph % (Auto) % [place] % (Auto) % Eos % (Auto) % Baso % (Auto) % Neut # (Auto) (1.4-6.5) K/uL Lymph # (Auto) (1.2-3.4) K/uL [place] # (Auto) (0.11-0.59) K/uL Eos # (Auto) (0-0.5) K/uL Baso # (Auto) (0-0.2) K/uL Immature Gran # (Auto) (0.00-0.02) K/uL Anisocytosis Sodium (136-145) mmol/L Potassium (3.5-5.1) mmol/L Chloride (98-107) mmol/L Carbon Dioxide (21-32) mmol/L Anion Gap (3-11) BUN (7-18) mg/dl Creatinine (0.6-1.2) mg/dl Est Cr Clr Drug Dosing ml/min Est GFR ( Amer) Est GFR (Non-Af Amer) BUN/Creatinine Ratio (10-20) Glucose (70-99) mg/dl Lactate 2.0 (0.4-2.0) mmol/L Calcium (8.5-10.1) mg/dl Magnesium 1.8 (1.8-2.4) mg/dl Total Bilirubin (0.2-1) mg/dl AST (15-37) U/L ALT (12-78) U/L Alkaline Phosphatase (45-117) U/L Troponin I (0-0.045) ng/ml Total Protein (6.4-8.2) gm/dl Albumin (3.4-5.0) gm/dl Globulin (2.5-4.0) gm/dl Albumin/Globulin Ratio (0.9-2) Lipase (73-393) U/L Urine Color Urine Appearance (Clear) Urine pH (4.5-7.5) Ur Specific [place] (1.000-1.030) Urine Protein (Negative) Urine Glucose (UA) (Negative) Urine Ketones (Negative) Urine Blood (Negative) Urine Nitrite (Negative) Urine Bilirubin (Negative) Urine Urobilinogen (Negative) Ur Leukocyte Esterase (Negative) Nasal Screen MRSA (PCR) (Negative) COVID-19 Eval Order SARS-CoV-2, RNA, NAAT (NEGATIVE) Diagnostic Findings CTA Chest - Per Stat RAD: Small hiatus hernia - no acute pulmonary embolism. Small amount of free air seen in the upper abdomen Abdomen/Pelvis CT - Per STAT-RAD: There is free air, most prominently in the left upper quadrant of the abdomen. S/P gastric bypass surgery. There is mild fluid distention fo the excluded stomach repair of a small amount of free fluid seen in the abdomen and pelvis L2-S1 posterior spinal fusion with intact orthopedic hardware. ECG Additional Comments: EKG - Sinus rhythm wtih marked sinus arrhythmia, rate of 77, normal axis, OD=200, QRS=88. ZVp=976, no STEMI, some nonspecific T wave abdnormalities in anterior leads Code Status & VTE Plan VTE Prophylaxis Plan VTE Prophylaxis will be ordered: Yes PG Care Time/CCT Total # of Minutes Spent Total Time Spent with Patient: Total time spent is greater than 50% in coordination of care (as documented) at patient's floor/unit and/or counseling patient: Coding Level of Care Code 10986 Initial Inpt Care Lvl 3 Diagnoses Bowel perforation K63.1 Hypokalemia E87.6 Esophageal reflux K21.9 Esophagitis presence: esophagitis presence not specified Hypertension I10 Hypertension type: unspecified Bilateral pulmonary embolism I26.99 Hx of diabetes mellitus Z86.39 (1) Esophageal reflux Esophagitis presence: esophagitis presence not specified Qualified Code(s): K21.9 - Gastro-esophageal reflux disease without esophagitis (2) Hypertension Hypertension type: unspecified Qualified Code(s): I10 - Essential (primary) hypertension
[2020-04-03] MEDS ORDERED: fentaNYL citrate 100 MCG/2 ML VIAL ONE (23:58)
[2020-04-04] MEDS ORDERED: PANTOprazole 80 MG in DEXTROSE 5% 100 ML IV ONE
[2020-04-04] MEDS ORDERED: PROPOFOL IV EMULSION 10 MG/ML 20 ML VIAL IV ONE (00:06)
[2020-04-04] MEDS ORDERED: ONDANSETRON INJ 2 MG/ML 2 ML VIAL ONE (00:07)
[2020-04-04] MEDS ORDERED: SUCCINYLCHOLINE 100MG/5ML SYR IV ONE (00:07)
[2020-04-04] MEDS ORDERED: LIDOCAINE HCL 2% 2 ML VIAL/AMP(20MG/ML) INFIL ONE (00:07)
[2020-04-04] MEDS ORDERED: ROCURONIUM BROMIDE 10 MG/ML 5 ML VIAL IV ONE (00:07)
[2020-04-04] MEDS ORDERED: ePHEDrine sulfate 50 MG/ML AMP IV PRN (00:09)
[2020-04-04] MEDS ORDERED: fentaNYL citrate 100 MCG/2 ML VIAL IV PRN (00:09)
[2020-04-04] MEDS ORDERED: ONDANSETRON INJ 2 MG/ML 2 ML VIAL IV PRN (00:09)
[2020-04-04] MEDS ORDERED: LABETALOL HCL IV 5 MG/ML 20ML IV PRN (00:09)
[2020-04-04] MEDS ORDERED: MEPERIDINE HCL 25 MG/ML CARP/VIAL IV PRN (00:09)
[2020-04-04] MEDS ORDERED: PHENYLEPHRINE 100MCG/ML 5ML SYR IV PRN (00:09)
[2020-04-04] MEDS ORDERED: ATROPINE SULFATE 0.1 MG/ML 10ML SYR IV PRN (00:09)
--- NOTE | 2020-04-04 00:12 | Anesthesiology Consultation ---
Date of Service April 04, 2020 Covid 19 negative on 04/03/20. Assessment & Plan (1) Encounter for pre-operative examination: Chart Review Chart Review: Acceptable Risk for Surgery (emergency surgery) and Patient NOT seen in Pre Admission Testing Consults Requested none History Surgery Operation Date: 04/04/20 00:05 Proposed Procedures p Bowel Resection - Mook Layne MD Height/Weight Height: 5 ft 4 in Weight: 67.3 kg Allergies Allergy/AdvReac Type Severity Reaction Status Date / Time pollen extracts Allergy Mild watery eyes Verified 04/03/20 22:10 Sulfa (Sulfonamide Allergy Unknown unknown Verified 04/03/20 22:10 Antibiotics) reaction happened in childhood levofloxacin [From Levaquin] AdvReac Severe tendon Verified 04/03/20 22:10 tearing codeine AdvReac Intermediate agitation, Verified 04/03/20 22:10 irritability NSAIDS (Non-Steroidal AdvReac Unknown advised to Verified 04/03/20 22:11 Anti-Inflamma avoid s/p gastric bypass Medications Home Medications Medication Instructions Recorded Confirmed Last Taken calcium carbonate 600 mg calcium 600 mg PO QAM 07/06/18 04/03/20 02/13/20 08:00 (1,500 mg) tablet cholecalciferol (vitamin D3) 5,000 unit PO QAM 08/11/18 04/03/20 02/13/20 08:00 [Vitamin D3] biotin 1,000 mcg PO QAM 09/28/18 04/03/20 02/13/20 08:00 diphenhydramine HCl [Benadryl] 25 mg PO TID PRN 09/28/18 04/03/20 01/16/20 acetaminophen [Mapap 650 mg PO Q4H PRN #30 tab 03/12/19 04/03/20 02/13/20 08:00 (acetaminophen)] hydrochlorothiazide 25 mg PO QAM 02/03/20 04/03/20 02/13/20 08:00 omeprazole 40 mg capsule,delayed 40 mg PO BID 30 Days #60 cap 02/22/20 04/03/20 Unknown release sucralfate 100 mg/mL oral 5 ml PO QID #420 ml 02/22/20 04/03/20 Unknown suspension NPO Date Last Intake of Fluids: 04/03/20 Time Last Intake of Fluids: 12:00 Date Last Intake of Solids: 04/03/20 Time Last Intake of Solids: 11:00 Past Medical History Medical History (Updated 04/04/20 @ 00:41 by Gerber White MD) Alcohol abuse quit June 2019 Anxiety Current smoker Depression Hx of diabetes mellitus diet controlled/no meds since gastric bypass Hypertension Lumbar herniated disc L2-L5 Medical marijuana use Mixed connective tissue disease nonspecific "mild, lupus-like" Numbness B/L; L>R LE/foot r/t back Post traumatic stress disorder Spinal stenosis at L4-L5 level Spinal stenosis, lumbar region with neurogenic claudication Superior mesenteric vein thrombosis Urinary incontinence, urge chronic Venous insufficiency Past Family History Family History Father Family history of diabetes mellitus Hypertension Mother Arthritis Breast cancer Bronchitis Asthma Family/Other Breast cancer Grandmother (Paternal) Family hx of colon cancer Other No family history of adverse response to anesthesia Denies family history of Ovarian cancer Prostate cancer Myocardial infarction Colorectal cancer Past Surgical History Surgical History History of carpal tunnel surgery of left wrist History of carpal tunnel surgery of right wrist History of section History of colonoscopy History of gastric bypass History of hand surgery History of tonsillectomy and adenoidectomy History of tooth extraction Hx of abdominal surgery repair mesenteric vein Hx of cervical spine surgery Hx of exploratory laparotomy Hx of hysterectomy, total Hx of nasal septoplasty Hx of shoulder surgery left Social History Smoking Status: Current every day smoker tobacco type: cigarettes Smoking cigarettes per day: 20+ Hx Alcohol Use: No (Has history of alcoholism but has been sober for the last 9 months) Alcohol type: beer alcohol intake frequency: a few times a month Hx Substance Use: Yes (medical marijuana) substance use type: marijuana Last Used Substance: Unknown Last Used Substance Other:: MONTHS Physical Exam Vital Signs Last Vital Signs Temp 36.8 C 04/03/20 20:56 Pulse 79 04/04/20 00:21 Resp 28 H 04/04/20 00:21 BP 145/87 H 04/04/20 00:21 Pulse Ox 96 04/04/20 00:21 Testing Laboratory Results 04/03/20 20:50 04/03/20 20:50 Urine Color Dark Yellow 04/03/20 21:40 Urine Appearance Clear (Clear) 04/03/20 21:40 Urine pH 5.0 (4.5-7.5) 04/03/20 21:40 Ur Specific [place] 1.027 (1.000-1.030) 04/03/20 21:40 Urine Protein Negative (Negative) 04/03/20 21:40 Urine Glucose (UA) Negative (Negative) 04/03/20 21:40 Urine Ketones 1+ (Negative) H 04/03/20 21:40 Urine Nitrite Negative (Negative) 04/03/20 21:40 Ur Leukocyte Esterase Negative (Negative) 04/03/20 21:40 Electrocardiogram Date: 04/03/20 Findings: + NSR @ (77) sinus arrythmia, cannot rule out anterior infarct
[2020-04-04] MEDS ORDERED: NEOSTIGMINE METHYLSULFATE 5 MG/5 ML SYR ONE (01:07)
[2020-04-04] MEDS ORDERED: GLYCOPYRROLATE 0.2 MG/ML VIAL ONE (01:07)
[2020-04-04] MEDS ORDERED: PIPERACILL/TAZOBAC CONSULT ACTIVE PRN (01:19)
[2020-04-04] MEDS ORDERED: fentaNYL citrate 100 MCG/2 ML VIAL ONE (02:09)
--- NOTE | 2020-04-04 02:12 | Post Operative Brief Note ---
Immediate Post Op Note v1 Date of Surgery April 04, 2020 Pre & Post Diagnosis Operation Date: 04/04/20 00:05 Pre-Op Diagnosis: visceral ulceration Post-Op Diagnosis: Gastrojejunal anastomosis ulceration I identified the patient and participated in the time-out.: Yes Procedure Operation Date: 04/04/20 00:05 Actual Procedures p Exploratory laparotomy, Oversewing of Gastrojejunal anastomosis(Not Applicable) - Mook Layne MD Surgeon Mook Layne MD Loss Control Representative None Estimated Blood Loss 10 Findings Consistent with Post-Op Diagnosis Drains Reid Catheter and Lefty-Kumar Drain (10 fr flat)
[2020-04-04] MEDS: HYDROmorphone INJ 1 MG/ML SYRINGE IV PRN ×10 (02:30→23:38)
[2020-04-04] MEDS ORDERED: HYDROmorphone INJ 1 MG/ML SYRINGE ONE (02:31)
--- NOTE | 2020-04-04 03:05 | Anesthesiology Progress Note ---
Date of Service April 04, 2020 Anesthesia Post Procedure Vital Signs Vital Signs: Temp Pulse Resp BP Pulse Ox 04/04/20 00:21 79 28 H 145/87 H 96 04/03/20 23:40 73 32 H 96 04/03/20 23:33 77 29 H 142/80 H 98 04/03/20 23:20 83 23 04/03/20 23:00 80 20 04/03/20 22:40 79 24 100 04/03/20 22:20 78 16 99 04/03/20 22:00 82 29 H 95 04/03/20 21:58 79 37 H 156/69 H 98 04/03/20 21:57 18 04/03/20 21:20 98 04/03/20 21:06 98 04/03/20 21:00 75 24 165/120 H 100 04/03/20 20:56 36.8 C 74 28 H 165/120 H 100 04/03/20 20:55 72 20 100 Pain Intensity Abdomen: Pain Intensity: 3 Transfer of Care Handoff Completed per policy Notes Mental Status: alert / awake / arousable Patient Amnestic to Procedure: Yes Nausea / Vomiting: adequately controlled Pain: adequately controlled and improving with treatment Airway Patency, RR, SpO2: stable & adequate BP & HR: stable & adequate Hydration State: stable & adequate Anesthetic Complications: no major complications apparent and Pt Satisfied with anesthetic care Notes: The patient is awake and her vital signs are stable.
[2020-04-04] MEDS ORDERED: POTASSIUM CHLORIDE 20 MEQ in LACTATED RINGER'S 1,000 ML IV SCH (04:15)
[2020-04-04] MEDS: PIPERACILLIN/TAZOBACTAM 3.375 GM in DEXTROSE 5% 100 ML IV SCH ×3 (04:28→20:11)
[2020-04-04] MEDS: PANTOprazole 40 MG in DEXTROSE 5% 100 ML IV SCH ×5 (04:45→23:26)
[2020-04-04] MEDS ORDERED: GLUCOSE 40% GEL 15 GM TUBE PO PRN (05:03)
[2020-04-04] MEDS ORDERED: GLUCAGON FOR INJ 1 MG VIAL SQ PRN (05:03)
[2020-04-04] MEDS ORDERED: CARBOHYDRATES FOR HYPOGLYCEMIA PO PRN (05:03)
[2020-04-04] MEDS ORDERED: GLUCOSE 10 TABS/TUBE PO PRN (05:03)
[2020-04-04] MEDS ORDERED: DEXTROSE 50% 50 ML SYRINGE IV PRN (05:03)
[2020-04-04] MEDS: INSULIN ASPART 100 UNITS/ML 3 ML PEN SC SCH ×4 (06:25→23:59)
--- NOTE | 2020-04-04 07:42 | CT Scan Report ---
CT ANGIOGRAM OF THE CHEST; CT SCAN OF THE ABDOMEN AND PELVIS WITH IV CONTRAST CLINICAL HISTORY: Atypical chest pain. Dyspnea. Generalized abdominal pain. COMPARISON STUDY: Chest CT scans dated 03/11/2019 and 02/26/2017. Abdominal CT dated 02/26/2017. TECHNIQUE: Following the IV administration of 120 of Optiray 320, CT angiogram of the chest is perfor med from the upper abdomen to the thoracic inlet utilizing the pulmonary embolus protocol. Images are reviewed in the axial, sagittal, coronal planes. 3-D MIPS images are created and assessed. Subsequen tly, CT scan of the abdomen and pelvis was performed from the lung bases to the proximal femora. Imag es are reviewed in the axial, sagittal, and coronal planes. IV contrast was administered without comp lication. A dose lowering technique was utilized adhering to the principles of ALARA. The examination is degraded by motion artifact, as well as by streak artifact from extensive metallic spinal hardwar e. CT DOSE: 962.17 mGy.cm FINDINGS: CHEST: Thyroid: Imaged portions of the thyroid gland are normal in size and attenuation. Thoracic aorta: There is mild atherosclerotic calcification of the thoracic aorta: is normal in calib er and demonstrates bovine variant arch anatomy. No dissection is seen. Pulmonary vasculature: The pulmonary trunk is dilated, measuring 3.4 cm in transverse diameter. This suggests pulmonary artery hypertension. There are no filling defects identified in the main, lobar, o r segmental pulmonary arteries to indicate pulmonary embolus. Heart: The heart is top normal in size and configuration, and without pericardial effusion. There are coronary artery calcifications. Lungs and pleural spaces: Evaluation of the lung parenchyma is modestly degraded by motion artifact. The trachea and central airways are clear. There is no airspace consolidation or pleural effusion. Sc arring/atelectasis is noted at the lung bases. Mediastinum: There is no mediastinal lymphadenopathy. Wandy: Clear. Axillae: There is no axillary lymphadenopathy. Bony thorax: The skeletal structures are osteopenic. Large hemangiomas are seen in the bodies of T5 a nd T10. No lytic or blastic lesions are identified. Fusion hardware is noted in the lower cervical sp ine. Arthritic change is seen in the shoulders. There is a subacute/healing fracture through the body of the sternum. There are chronic/healed right-sided rib fractures. ABDOMEN AND PELVIS: Liver: The contrast-enhanced liver is normal in size, contour, and attenuation. There is no intrahepa tic or ductal dilatation. The hepatic veins and portal veins are patent. Gallbladder: Unremarkable. Spleen: Normal in size and attenuation. Pancreas: Moderately atrophic and grossly unremarkable. Adrenal glands: Unremarkable. Kidneys: The contrast enhanced kidneys demonstrate cortical atrophy and are without hydronephrosis. T he kidneys enhance symmetrically. A 2.3 cm cyst arises from the upper pole of the right kidney. Abdominal vasculature: The abdominal aorta is normal in course and caliber noting moderate atheroscle rotic calcification. Stomach and bowel: There is a moderate hiatal hernia. Postoperative changes consistent with a history of Juliocesar-en-Y gastric bypass surgery. There is apparent site of perforation located at the level of t he gastrojejunostomy best seen on image #102, with discontinuity of the bowel wall and gas tracking t hrough the bowel wall at this level. There is surrounding inflammation. There is no evidence of bowel obstruction. The small bowel loops and colon are decompressed. The appendix is well-visualized and normal. Peritoneum: There are numerous foci of intraperitoneal free air in the upper abdomen below the diaphr agm. There is trace perihepatic ascites, as well as a small volume of free fluid in the pelvis. Lymphadenopathy: None. Pelvic viscera: The bladder is decompressed and cannot be evaluated. The uterus is surgically absent. No adnexal lesion is seen. Skeletal structures: The skeletal structures are osteopenic. Extensive postlaminectomy change is seen throughout the lumbosacral spine. No lytic or blastic lesions are seen. IMPRESSION: 1. There is no evidence of pulmonary embolus in the main, lobar, or segmental pulmonary arteries. 2. There is postoperative change consistent with a history of Juliocesar-en-Y gastric bypass surgery. There is no evidence of bowel obstruction. 3. Intraperitoneal free air is consistent with visceral perforation. 4. The site of perforation likely involves the gastrojejunostomy, where there is an apparent defect w ithin the bowel wall and surrounding inflammation. Surgical consultation is advised. 5. There is a small volume of abdominopelvic ascites. 6. There is no airspace consolidation or pleural effusion. 7. There is a subacute/healing fracture through the body of the sternum. 8. Additional findings as above. ACT 112: Negative or not required by law. Electronically signed by: Chele York M.D. 04/04/2020 7:41 AM
[2020-04-04] MEDS: NICOTINE 21 MG/24 HR TDSY TD SCH (08:27)
[2020-04-04 08:40] LABS: Hematocrit (blood only) 33.6 % (37-47); Hemoglobin 10.8 g/dL (12.0-16.0); Immature Granulocytes # (auto) 0.03 K/uL (0.00-0.02); Immature Granulocytes % (auto) 0.2 %; Lymphocytes % (auto) 2.4 %; Mean Corpuscular Hemoglobin 25.1 pg (25-34); Mean Corpuscular Hgb Conc 32.1 g/dL (32-36); Mean Platelet Volume 10.8 fL (7.4-10.4); Monocytes # (auto) 0.39 K/uL (0.11-0.59); Monocytes % (auto) 2.4 %; Neutrophils # (auto) 15.66 K/uL (1.4-6.5); Platelet Count 277 K/uL (130-400); RDW Coefficient of Variation 20.1 % (11.5-14.5); RDW Standard Deviation 56.1 fL (36.4-46.3); Red Blood Count 4.31 M/uL (4.2-5.4); White Blood Count 16.48 K/uL (4.8-10.8)
[2020-04-04 09:14] LABS: BUN Creatinine Ratio 18.8 (10-20); Calcium 9.3 mg/dl (8.5-10.1); Creatinine Clr Calc Pharmacy 93.9 ml/min; Est GFR (Non-African American) 97.5; Potassium 4.1 mmol/L (3.5-5.1)
[2020-04-04 09:26] LABS: Anisocytosis Present
[2020-04-04] MEDS ORDERED: ACETAMINOPHEN 1,000 MG/100 ML VIAL IV PRN (10:06)
--- NOTE | 2020-04-04 10:15 | Surgery Progress Note ---
Date of Service April 04, 2020 Assessment & Plan (1) Bowel perforation: POD # 0 s/p ex lap, repair of perforated marginal ulcer -afebrile, vss - moderate postop pain controlled - mango with cloudy serosanguineous output - UO- 135 cc last shift Plan: IV Tylenol 1gm q8h scheduled, IV Dilaudid for mod to severe pain NGT to LIS NPO IV fluids at 125 cc/hr IV Zofran prn nausea IV Protonix drip IV Zosyn mango drain to bulb suction Continue Dill catheter for I/O's repeat am labs OOB to chair today Continue SCDs and add Lovenox 40 mg sq Discussed with Dr. Layne who is to evaluate patient later today and agrees with above. Admission and Anticipated Discharge Date Admission Date: April 04, 2020 Subjective having moderate postop pain but pain better than when she presented to ED no nausea or vomiting no chest pain or shortness of breath just hard to take a deep breath due to the upper abdominal pain Physical Exam Constitutional: well developed and well nourished; no acute distress and not ill appearing Respiratory: no respiratory distress, no labored breathing, no retractions and does not use accessory muscles Auscultation: + diminished lung sounds; no crackles, no rales, no rhonchi and no wheezes Gastrointestinal (Abdomen): Inspection/Auscultation: abdomen normal to inspection, normal bowel sounds, + abdominal surgical incision (covered with dry dressing) and + abdominal surgical drain present (cloudy serosanguineous); abdomen not distended and no high-pitched sounds Percussion/Palpation: + abdomen tender (upper abdomen) and abdomen soft; no guarding and abdomen not rigid NGT to right nare, taped Skin: no rashes, warm and dry Psychiatric: A+Ox3, euthymic affect Results & Data ([facility]) Vital Signs (Past 12 Hours) Vital Signs Temp Pulse Pulse Pulse Resp BP BP 04/04/20 08:00 36.5 C 77 18 113/73 04/04/20 05:30 74 18 127/87 04/04/20 04:40 75 18 126/84 04/04/20 04:10 77 20 142/84 H 04/04/20 03:55 73 20 144/83 H 04/04/20 03:40 36.4 C L 71 18 147/78 H 04/04/20 03:30 71 04/04/20 03:25 36.4 C L 75 19 154/106 H 04/04/20 03:05 36.4 C L 67 16 159/91 H 04/04/20 03:00 36.4 C L 71 16 175/92 H 04/04/20 02:45 36.4 C L 67 14 168/84 H 04/04/20 02:35 36.3 C L 71 16 170/86 H 04/04/20 02:25 36.3 C L 83 16 180/86 H 04/04/20 00:21 79 28 H 145/87 H 04/03/20 23:40 73 32 H 04/03/20 23:33 77 29 H 142/80 H 04/03/20 23:20 83 23 04/03/20 23:00 80 20 04/03/20 22:40 79 24 04/03/20 22:20 78 16 Pulse Ox 04/04/20 08:00 97 04/04/20 05:30 94 04/04/20 04:40 93 04/04/20 04:10 95 04/04/20 03:55 93 04/04/20 03:40 95 04/04/20 03:30 04/04/20 03:25 95 04/04/20 03:05 95 04/04/20 03:00 95 04/04/20 02:45 97 04/04/20 02:35 98 04/04/20 02:25 100 04/04/20 00:21 96 04/03/20 23:40 96 04/03/20 23:33 98 04/03/20 23:20 04/03/20 23:00 04/03/20 22:40 100 04/03/20 22:20 99 Laboratory Results 04/04/20 04/04/20 04/04/20 Range/Units 08:26 08:26 06:20 WBC 16.48 H (4.8-10.8) K/uL RBC 4.31 (4.2-5.4) M/uL Hgb 10.8 L (12.0-16.0) g/dL Hct 33.6 L (37-47) % MCV 78.0 L (80-100) fL MCH 25.1 (25-34) pg MCHC 32.1 (32-36) g/dL RDW Std Deviation 56.1 H (36.4-46.3) fL RDW Coeff of Keith 20.1 H (11.5-14.5) % Plt Count 277 (130-400) K/uL MPV 10.8 H (7.4-10.4) fL Immature Gran % (Auto) 0.2 % Neut % (Auto) 95.0 % Lymph % (Auto) 2.4 % [place] % (Auto) 2.4 % Eos % (Auto) 0.0 % Baso % (Auto) 0.0 % Neut # (Auto) 15.66 H (1.4-6.5) K/uL Lymph # (Auto) 0.40 L (1.2-3.4) K/uL [place] # (Auto) 0.39 (0.11-0.59) K/uL Eos # (Auto) 0.00 (0-0.5) K/uL Baso # (Auto) 0.00 (0-0.2) K/uL Immature Gran # (Auto) 0.03 H (0.00-0.02) K/uL Anisocytosis Present Sodium 140 (136-145) mmol/L Potassium 4.1 D (3.5-5.1) mmol/L Chloride 109 H (98-107) mmol/L Carbon Dioxide 23 (21-32) mmol/L Anion Gap 8.0 (3-11) BUN 12 (7-18) mg/dl Creatinine 0.63 (0.6-1.2) mg/dl Est Cr Clr Drug Dosing 93.9 ml/min Est GFR ( Amer) 113.0 Est GFR (Non-Af Amer) 97.5 BUN/Creatinine Ratio 18.8 (10-20) Glucose 155 H (70-99) mg/dl POC Glucose 157 H (70-99) mg/dl Lactate (0.4-2.0) mmol/L Calcium 9.3 (8.5-10.1) mg/dl Magnesium (1.8-2.4) mg/dl Total Bilirubin (0.2-1) mg/dl AST (15-37) U/L ALT (12-78) U/L Alkaline Phosphatase (45-117) U/L Troponin I (0-0.045) ng/ml Total Protein (6.4-8.2) gm/dl Albumin (3.4-5.0) gm/dl Globulin (2.5-4.0) gm/dl Albumin/Globulin Ratio (0.9-2) Lipase (73-393) U/L Urine Color Urine Appearance (Clear) Urine pH (4.5-7.5) Ur Specific [place] (1.000-1.030) Urine Protein (Negative) Urine Glucose (UA) (Negative) Urine Ketones (Negative) Urine Blood (Negative) Urine Nitrite (Negative) Urine Bilirubin (Negative) Urine Urobilinogen (Negative) Ur Leukocyte Esterase (Negative) Nasal Screen MRSA (PCR) (Negative) COVID-19 Eval Order Hepatitis C Ab Screen (Neg) SARS-CoV-2, RNA, NAAT (NEGATIVE) 04/04/20 04/03/20 04/03/20 Range/Units 04:43 23:01 23:01 WBC (4.8-10.8) K/uL RBC (4.2-5.4) M/uL Hgb (12.0-16.0) g/dL Hct (37-47) % MCV (80-100) fL MCH (25-34) pg MCHC (32-36) g/dL RDW Std Deviation (36.4-46.3) fL RDW Coeff of Keith (11.5-14.5) % Plt Count (130-400) K/uL MPV (7.4-10.4) fL Immature Gran % (Auto) % Neut % (Auto) % Lymph % (Auto) % [place] % (Auto) % Eos % (Auto) % Baso % (Auto) % Neut # (Auto) (1.4-6.5) K/uL Lymph # (Auto) (1.2-3.4) K/uL [place] # (Auto) (0.11-0.59) K/uL Eos # (Auto) (0-0.5) K/uL Baso # (Auto) (0-0.2) K/uL Immature Gran # (Auto) (0.00-0.02) K/uL Anisocytosis Sodium (136-145) mmol/L Potassium (3.5-5.1) mmol/L Chloride (98-107) mmol/L Carbon Dioxide (21-32) mmol/L Anion Gap (3-11) BUN (7-18) mg/dl Creatinine (0.6-1.2) mg/dl Est Cr Clr Drug Dosing ml/min Est GFR ( Amer) Est GFR (Non-Af Amer) BUN/Creatinine Ratio (10-20) Glucose (70-99) mg/dl POC Glucose 196 H (70-99) mg/dl Lactate 2.0 (0.4-2.0) mmol/L Calcium (8.5-10.1) mg/dl Magnesium 1.8 (1.8-2.4) mg/dl Total Bilirubin (0.2-1) mg/dl AST (15-37) U/L ALT (12-78) U/L Alkaline Phosphatase (45-117) U/L Troponin I (0-0.045) ng/ml Total Protein (6.4-8.2) gm/dl Albumin (3.4-5.0) gm/dl Globulin (2.5-4.0) gm/dl Albumin/Globulin Ratio (0.9-2) Lipase (73-393) U/L Urine Color Urine Appearance (Clear) Urine pH (4.5-7.5) Ur Specific [place] (1.000-1.030) Urine Protein (Negative) Urine Glucose (UA) (Negative) Urine Ketones (Negative) Urine Blood (Negative) Urine Nitrite (Negative) Urine Bilirubin (Negative) Urine Urobilinogen (Negative) Ur Leukocyte Esterase (Negative) Nasal Screen MRSA (PCR) (Negative) COVID-19 Eval Order Hepatitis C Ab Screen (Neg) SARS-CoV-2, RNA, NAAT (NEGATIVE) 04/03/20 04/03/20 04/03/20 Range/Units 22:20 22:20 22:20 WBC (4.8-10.8) K/uL RBC (4.2-5.4) M/uL Hgb (12.0-16.0) g/dL Hct (37-47) % MCV (80-100) fL MCH (25-34) pg MCHC (32-36) g/dL RDW Std Deviation (36.4-46.3) fL RDW Coeff of Keith (11.5-14.5) % Plt Count (130-400) K/uL MPV (7.4-10.4) fL Immature Gran % (Auto) % Neut % (Auto) % Lymph % (Auto) % [place] % (Auto) % Eos % (Auto) % Baso % (Auto) % Neut # (Auto) (1.4-6.5) K/uL Lymph # (Auto) (1.2-3.4) K/uL [place] # (Auto) (0.11-0.59) K/uL Eos # (Auto) (0-0.5) K/uL Baso # (Auto) (0-0.2) K/uL Immature Gran # (Auto) (0.00-0.02) K/uL Anisocytosis Sodium (136-145) mmol/L Potassium (3.5-5.1) mmol/L Chloride (98-107) mmol/L Carbon Dioxide (21-32) mmol/L Anion Gap (3-11) BUN (7-18) mg/dl Creatinine (0.6-1.2) mg/dl Est Cr Clr Drug Dosing ml/min Est GFR ( Amer) Est GFR (Non-Af Amer) BUN/Creatinine Ratio (10-20) Glucose (70-99) mg/dl POC Glucose (70-99) mg/dl Lactate (0.4-2.0) mmol/L Calcium (8.5-10.1) mg/dl Magnesium (1.8-2.4) mg/dl Total Bilirubin (0.2-1) mg/dl AST (15-37) U/L ALT (12-78) U/L Alkaline Phosphatase (45-117) U/L Troponin I (0-0.045) ng/ml Total Protein (6.4-8.2) gm/dl Albumin (3.4-5.0) gm/dl Globulin (2.5-4.0) gm/dl Albumin/Globulin Ratio (0.9-2) Lipase (73-393) U/L Urine Color Urine Appearance (Clear) Urine pH (4.5-7.5) Ur Specific [place] (1.000-1.030) Urine Protein (Negative) Urine Glucose (UA) (Negative) Urine Ketones (Negative) Urine Blood (Negative) Urine Nitrite (Negative) Urine Bilirubin (Negative) Urine Urobilinogen (Negative) Ur Leukocyte Esterase (Negative) Nasal Screen MRSA (PCR) Negative (Negative) COVID-19 [facility] (Neg) SARS-CoV-2, RNA, NAAT NEGATIVE (NEGATIVE) 04/03/20 04/03/20 04/03/20 Range/Units 21:40 20:50 20:50 WBC (4.8-10.8) K/uL RBC (4.2-5.4) M/uL Hgb (12.0-16.0) g/dL Hct (37-47) % MCV (80-100) fL MCH (25-34) pg MCHC (32-36) g/dL RDW Std Deviation (36.4-46.3) fL RDW Coeff of Keith (11.5-14.5) % Plt Count (130-400) K/uL MPV (7.4-10.4) fL Immature Gran % (Auto) % Neut % (Auto) % Lymph % (Auto) % [place] % (Auto) % Eos % (Auto) % Baso % (Auto) % Neut # (Auto) (1.4-6.5) K/uL Lymph # (Auto) (1.2-3.4) K/uL [place] # (Auto) (0.11-0.59) K/uL Eos # (Auto) (0-0.5) K/uL Baso # (Auto) (0-0.2) K/uL Immature Gran # (Auto) (0.00-0.02) K/uL Anisocytosis Sodium 140 (136-145) mmol/L Potassium 3.2 L (3.5-5.1) mmol/L Chloride 108 H (98-107) mmol/L Carbon Dioxide 23 (21-32) mmol/L Anion Gap 10.0 (3-11) BUN 13 (7-18) mg/dl Creatinine 0.63 (0.6-1.2) mg/dl Est Cr Clr Drug Dosing 89.6 ml/min Est GFR ( Amer) 113.0 Est GFR (Non-Af Amer) 97.5 BUN/Creatinine Ratio 20.0 (10-20) Glucose 151 H (70-99) mg/dl POC Glucose (70-99) mg/dl Lactate (0.4-2.0) mmol/L Calcium 9.7 (8.5-10.1) mg/dl Magnesium (1.8-2.4) mg/dl Total Bilirubin 0.4 (0.2-1) mg/dl AST 11 L (15-37) U/L ALT 15 (12-78) U/L Alkaline Phosphatase 100 (45-117) U/L Troponin I < 0.015 (0-0.045) ng/ml Total Protein 7.0 (6.4-8.2) gm/dl Albumin 3.5 (3.4-5.0) gm/dl Globulin 3.5 (2.5-4.0) gm/dl Albumin/Globulin Ratio 1.0 (0.9-2) Lipase 50 L (73-393) U/L Urine Color Dark Yellow Urine Appearance Clear (Clear) Urine pH 5.0 (4.5-7.5) Ur Specific [place] 1.027 (1.000-1.030) Urine Protein Negative (Negative) Urine Glucose (UA) Negative (Negative) Urine Ketones 1+ H (Negative) Urine Blood Negative (Negative) Urine Nitrite Negative (Negative) Urine Bilirubin Negative (Negative) Urine Urobilinogen Negative (Negative) Ur Leukocyte Esterase Negative (Negative) Nasal Screen MRSA (PCR) (Negative) COVID-19 Eval Order Hepatitis C Ab Screen Neg (Neg) SARS-CoV-2, RNA, NAAT (NEGATIVE) 04/03/20 Range/Units 20:50 WBC 17.38 H (4.8-10.8) K/uL RBC 4.56 (4.2-5.4) M/uL Hgb 11.5 L (12.0-16.0) g/dL Hct 35.3 L (37-47) % MCV 77.4 L (80-100) fL MCH 25.2 (25-34) pg MCHC 32.6 (32-36) g/dL RDW Std Deviation 56.0 H (36.4-46.3) fL RDW Coeff of Keith 20.3 H (11.5-14.5) % Plt Count 410 H (130-400) K/uL MPV 10.5 H (7.4-10.4) fL Immature Gran % (Auto) 0.2 % Neut % (Auto) 84.6 % Lymph % (Auto) 9.4 % [place] % (Auto) 4.7 % Eos % (Auto) 0.9 % Baso % (Auto) 0.2 % Neut # (Auto) 14.70 H (1.4-6.5) K/uL Lymph # (Auto) 1.64 (1.2-3.4) K/uL [place] # (Auto) 0.81 H (0.11-0.59) K/uL Eos # (Auto) 0.16 (0-0.5) K/uL Baso # (Auto) 0.03 (0-0.2) K/uL Immature Gran # (Auto) 0.04 H (0.00-0.02) K/uL Anisocytosis Present Sodium (136-145) mmol/L Potassium (3.5-5.1) mmol/L Chloride (98-107) mmol/L Carbon Dioxide (21-32) mmol/L Anion Gap (3-11) BUN (7-18) mg/dl Creatinine (0.6-1.2) mg/dl Est Cr Clr Drug Dosing ml/min Est GFR ( Amer) Est GFR (Non-Af Amer) BUN/Creatinine Ratio (10-20) Glucose (70-99) mg/dl POC Glucose (70-99) mg/dl Lactate (0.4-2.0) mmol/L Calcium (8.5-10.1) mg/dl Magnesium (1.8-2.4) mg/dl Total Bilirubin (0.2-1) mg/dl AST (15-37) U/L ALT (12-78) U/L Alkaline Phosphatase (45-117) U/L Troponin I (0-0.045) ng/ml Total Protein (6.4-8.2) gm/dl Albumin (3.4-5.0) gm/dl Globulin (2.5-4.0) gm/dl Albumin/Globulin Ratio (0.9-2) Lipase (73-393) U/L Urine Color Urine Appearance (Clear) Urine pH (4.5-7.5) Ur Specific [place] (1.000-1.030) Urine Protein (Negative) Urine Glucose (UA) (Negative) Urine Ketones (Negative) Urine Blood (Negative) Urine Nitrite (Negative) Urine Bilirubin (Negative) Urine Urobilinogen (Negative) Ur Leukocyte Esterase (Negative) Nasal Screen MRSA (PCR) (Negative) COVID-19 Eval Order Hepatitis C Ab Screen (Neg) SARS-CoV-2, RNA, NAAT (NEGATIVE)
--- NOTE | 2020-04-04 10:20 | Hospitalist Progress Note ---
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 Bowel Perforation -Free air noted in LUQ of Ab/Pelv CT on admission -Prior hx of Juliocesar-en-y gastrojejunostomy w/ known ulceration -S/P Ex Lap and Oversewing of the gastrojejunal anastomosis on 04/04/20 at midnight, POD#0 -Continue IV Zosyn -Continue IV Zofran PRN nausea -Continue Protonix gtt -Continue Dilaudid 1mg q2h PRN pain -Continue scheduled IV Tylenol 1g q8h for pain -Continue NGT per surgery -NPO, Will advance diet and initiate DVT prophylaxis at the discretion of surgical team. DM2 -Diet controlled s/p juliocesar-en-y gastrojejunostomy -Will start SSI while inpatient HTN -Holding PO HCTZ GERD -Hold home Sucralfate and Omeprazole -Protonix gtt Tobacco Use -Had been smoking 2PPD until the last month since decreasing to 1PPD -Continue Nicotine Patch PRN -To address smoking cessation - nicotine will interfere with wound healing. Hx PE, RLE DVT, Superior Mesenteric Vein Thrombosis -Not currently on anticoagulation -Would recommend DVT prophylaxis once OK'd by surgery team Dispo: PCU FEN: NPO, LR +20meq KCl 125ml/hr x2 bags, NG in R nare DVT: SCD, chemoprophylaxis on hold until cleared by Gen Surg Code: Full Admission and Anticipated Discharge Date Admission Date: April 04, 2020 Supervising Physician Co-Signing Physician Notes Resident Physician Supervision Note: I independently interviewed and examined the patient and verified the govea history and physical, reviewed labs and image studies, discussed the case with the resident Dr. Hahn and agree with the findings and care plan. Subjective Patient evaluated at the bedside this AM. Noting that she feels "a million times better" than last night and that she no longer feel as though she is "going to ." Notes that her pain is still present primarily in her upper abdomen, worsening when she coughs or breaths in deeply, but that it is tolerable. Has not had any fevers overnight, but felt chills. Otherwise feeling well and grateful to the surgery team. Review of Systems Constitutional: + chills; no fever Eyes: no worsening vision Ear, Nose, Mouth, Throat: no dizziness Respiratory: + cough, + pain on inspiration (abdominal) and + pain with cough; no dyspnea Cardiovascular: no chest pain, no chest pain at rest, no radiating jaw, neck or arm pain, no dyspnea and no dyspnea on exertion Gastrointestinal: + abdominal pain; no nausea and no vomiting Physical Exam Constitutional: well developed and well nourished; no acute distress Eyes: PERRL, conjunctivae normal, anicteric sclerae ENMT: NGT in R nostril Respiratory: normal respiratory effort, lungs clear to auscultation Cardiovascular: RRR, no murmur, no edema Gastrointestinal (Abdomen): Inspection/Auscultation: + abdominal surgical incision (dressing clean and dry), + abdominal surgical drain present (WADE draining serosang ) and + hypoactive bowel sounds; abdomen not distended and no high-pitched sounds Percussion/Palpation: + abdomen tender (TTP in upper quadrants and near surgical incision) and abdomen soft; no guarding and abdomen not rigid Psychiatric: A+Ox3, euthymic affect Results & Data Results & Data ([facility]) Vital Signs (Past 12 Hours) Vital Signs Temp Pulse Pulse Pulse Resp BP BP 04/04/20 08:00 36.5 C 77 18 113/73 04/04/20 05:30 74 18 127/87 04/04/20 04:40 75 18 126/84 04/04/20 04:10 77 20 142/84 H 04/04/20 03:55 73 20 144/83 H 04/04/20 03:40 36.4 C L 71 18 147/78 H 04/04/20 03:30 71 04/04/20 03:25 36.4 C L 75 19 154/106 H 04/04/20 03:05 36.4 C L 67 16 159/91 H 04/04/20 03:00 36.4 C L 71 16 175/92 H 04/04/20 02:45 36.4 C L 67 14 168/84 H 04/04/20 02:35 36.3 C L 71 16 170/86 H 04/04/20 02:25 36.3 C L 83 16 180/86 H 04/04/20 00:21 79 28 H 145/87 H 04/03/20 23:40 73 32 H 04/03/20 23:33 77 29 H 142/80 H 04/03/20 23:20 83 23 04/03/20 23:00 80 20 04/03/20 22:40 79 24 04/03/20 22:20 78 16 Pulse Ox 04/04/20 08:00 97 04/04/20 05:30 94 04/04/20 04:40 93 04/04/20 04:10 95 04/04/20 03:55 93 04/04/20 03:40 95 04/04/20 03:30 04/04/20 03:25 95 04/04/20 03:05 95 04/04/20 03:00 95 04/04/20 02:45 97 04/04/20 02:35 98 04/04/20 02:25 100 04/04/20 00:21 96 04/03/20 23:40 96 04/03/20 23:33 98 04/03/20 23:20 04/03/20 23:00 04/03/20 22:40 100 04/03/20 22:20 99 Resident Activity Tracking Resident Involvement: Resident Care Provided Care Provided: Adult Hospital Medicine
--- NOTE | 2020-04-04 10:39 | Electrocardiogram Report ---
Test Reason : Blood Pressure : / mmHG Vent. Rate : 077 BPM Atrial Rate : 077 BPM P-R Int : 134 ms QRS Dur : 088 ms QT Int : 438 ms P-R-T Axes : 053 011 036 degrees QTc Int : 495 ms Poor data quality, interpretation may be adversely affected Sinus rhythm with occasional Premature atrial complexes Poor R wave progression, consider anterior OH vs. lead placement vs. LVH Diffuse Minor Nonspecific T wave abnormality Abnormal ECG When compared with ECG of 22-JUL-2019 16:12, No significant change Confirmed by Diego Wu ([id number]) on 04/04/2020 10:38:38 AM Referred By: REFERRED SELF Confirmed By:Diego Wu
[2020-04-04] MEDS: ACETAMINOPHEN 1000 MG/100 ML IV IV SCH ×2 (10:46→18:01)
[2020-04-04] MEDS: LACTATED RINGER'S 1,000 ML IV SCH ×2 (11:17→18:33)
--- NOTE | 2020-04-04 11:40 | Operative Report (OR) ---
DATE OF OPERATION: 04/04/2020 PREOPERATIVE DIAGNOSIS: Perforated viscus. POSTOPERATIVE DIAGNOSIS: Perforation at gastrojejunal anastomosis. PROCEDURE: Exploratory laparotomy with oversewing of gastrojejunal anastomosis ulceration and placement of Godfrey patch. SURGEON: Mook Layne MD. FINDINGS: Upon opening the abdomen, there was turbid fluid in small to moderate amount. There was a small amount of fibrinous exudate overlying the gastric pouch. A less than 1 cm opening was identified at the gastrojejunal anastomosis. There were no other perforations identified. The liver was slightly enlarged, but was smooth. It was of normal contour. The remainder of the visible bowel appeared normal. There was a small amount of turbid fluid in the pelvis that was irrigated out as well. TECHNIQUE: The patient was given a general anesthetic and the area was prepped and draped in the usual sterile fashion. A vertical midline incision was made, carried down through the subcutaneous tissue to the fascia, which was opened in the midline. Dissection was carried down to the posterior sheath and peritoneum, which were each opened individually and the abdomen was entered. The layers were opened along the length of the skin incision. Exploration of the abdomen was performed with findings as above. The turbid fluid was removed using suction. That allowed me then to close the perforation with 3 interrupted 2-0 silk sutures. The omental fat was then brought over the area of the perforation and secured in place with the limbs of the previously placed silk sutures. The abdomen was then irrigated with a copious amount of saline solution and removed. A small stab incision was made in the right lateral abdomen, through which a 10 mm Lefty-Kumar was brought. This was placed in the subhepatic space over towards the lesser curvature of the stomach, but not abutting the area of the repair. It was secured at the skin level with 3-0 nylon. The posterior sheath and peritoneum were closed with a running 2-0 Vicryl and the midline anterior sheath was closed with a running #1 PDS. The subcutaneous tissue was irrigated and the irrigation removed and the skin was closed with hal. Estimated blood loss was 10 mL. Sponge, needle and instrument counts were correct prior to closure. The patient tolerated the surgical procedure without complication and was transferred to recovery. I attest to the content of the Intraoperative Record and any orders documented therein. Any exception s are noted below.
[2020-04-04] MEDS: ENOXAPARIN INJ 40 MG/0.4 ML SYR SQ SCH (11:44)
[2020-04-04] MEDS: ONDANSETRON INJ 2 MG/ML 2 ML VIAL IV PRN (16:34)
[2020-04-05] MEDS: LACTATED RINGER'S 1,000 ML IV SCH ×3 (02:25→18:03)
[2020-04-05] MEDS: HYDROmorphone INJ 1 MG/ML SYRINGE IV PRN ×4 (02:26→16:05)
[2020-04-05] MEDS: PANTOprazole 40 MG in DEXTROSE 5% 100 ML IV SCH ×4 (04:21→19:51)
[2020-04-05] MEDS: PIPERACILLIN/TAZOBACTAM 3.375 GM in DEXTROSE 5% 100 ML IV SCH ×3 (04:22→19:51)
[2020-04-05] MEDS: ONDANSETRON INJ 2 MG/ML 2 ML VIAL IV PRN ×2 (04:33→19:59)
[2020-04-05] MEDS ORDERED: LORazepam 0.5 MG/1 ML VIAL IV STA (05:08)
[2020-04-05] MEDS: ACETAMINOPHEN 1,000 MG/100 ML VIAL IV SCH ×3 (05:32→22:19)
[2020-04-05] MEDS: INSULIN ASPART 100 UNITS/ML 3 ML PEN SC SCH ×3 (05:56→18:17)
[2020-04-05 07:09] LABS: Basophils # (auto) 0.01 K/uL (0-0.2); Basophils % (auto) 0.1 %; Eosinophils # (auto) 0.07 K/uL (0-0.5); Eosinophils % (auto) 0.7 %; Hematocrit (blood only) 27.5 % (37-47); Hemoglobin 8.8 g/dL (12.0-16.0); Immature Granulocytes # (auto) 0.02 K/uL (0.00-0.02); Immature Granulocytes % (auto) 0.2 %; Lymphocytes # (auto) 0.71 K/uL (1.2-3.4); Lymphocytes % (auto) 7.1 %; Mean Corpuscular Hemoglobin 24.9 pg (25-34); Mean Corpuscular Volume 77.9 fL (80-100); Mean Platelet Volume 10.8 fL (7.4-10.4); Monocytes # (auto) 0.46 K/uL (0.11-0.59); Monocytes % (auto) 4.6 %; Neutrophils # (auto) 8.77 K/uL (1.4-6.5); Neutrophils % (auto) 87.3 %; Platelet Count 257 K/uL (130-400); RDW Coefficient of Variation 20.2 % (11.5-14.5); RDW Standard Deviation 55.6 fL (36.4-46.3); Red Blood Count 3.53 M/uL (4.2-5.4); White Blood Count 10.04 K/uL (4.8-10.8)
[2020-04-05] MEDS ORDERED: SODIUM CHLORIDE 0.65% NA SOLN 45 ML (OCEAN) ONE (07:33)
[2020-04-05 07:40] LABS: Anisocytosis Present; Ovalocytes 1+
[2020-04-05] MEDS: NICOTINE 21 MG/24 HR TDSY TD SCH (08:00)
[2020-04-05] MEDS: ENOXAPARIN INJ 40 MG/0.4 ML SYR SQ SCH (08:01)
[2020-04-05 08:05] LABS: BUN Creatinine Ratio 18.5 (10-20); Creatinine Clr Calc Pharmacy 103.8 ml/min; Est GFR (African American) 116.8; Est GFR (Non-African American) 100.8; Potassium 3.4 mmol/L (3.5-5.1)
[2020-04-05] MEDS: POTASSIUM CHLORIDE / WTR 10 MEQ/100 ML PLCT IV SCH ×4 (09:22→12:51)
--- NOTE | 2020-04-05 10:03 | Hospitalist Progress Note ---
Date of Service April 05, 2020 Assessment & Plan (1) Bowel perforation: Patient is a 59 year old female with PMHx Juliocesar-en-y gastrojejunostomy 2008 w/ ulceration noted 01/2020 on EGD, DM2, HTN, GERD, Tobacco use who presented initially with severe abdominal pain, found to have free air in the LUQ on Abdominal Pelvis CT and underwent emergent ex lap and oversewing of the gastrojejunal anastomosis on 04/04/20 at midnight. Bowel Perforation w/ Peritonitis -Free air noted in LUQ of Ab/Pelv CT on admission -Prior hx of Juliocesar-en-y gastrojejunostomy w/ known ulceration -S/P Ex Lap and Oversewing of the gastrojejunal anastomosis on 04/04/20 at midnight, POD#0 -Continue IV Zosyn -Continue IV Zofran PRN nausea -Continue Protonix gtt -Continue Dilaudid 1mg q2h PRN pain -Continue scheduled IV Tylenol 1g q8h for pain -Continue NGT per surgery -NPO, Will advance diet per surgical team. Hypokalemia -Potassium at 3.4 this AM -Ordered for 40 meq KCl IV -Recheck in AM DM2 -Diet controlled s/p juliocesar-en-y gastrojejunostomy -Continue SSI while inpatient HTN -Holding PO HCTZ -Blood pressures appropriate GERD -Hold home Sucralfate and Omeprazole -Protonix gtt Tobacco Use -Had been smoking 2PPD until the last month since decreasing to 1PPD -Continue Nicotine Patch PRN -Had long discussion this AM with patient in regards to Tobacco cessation. Patient agreeing, interested in Lozenges vs patch after discharge. Hx PE, RLE DVT, Superior Mesenteric Vein Thrombosis -DVT prophylaxis started by surgical team yesterday -Continue Lovenox 40mg QD Dispo: PCU FEN: NPO, GO562lt/hr, NG in R nare DVT: SCD, Lovenox 40mg QD Code: Full Admission and Anticipated Discharge Date Admission Date: April 04, 2020 Supervising Physician Co-Signing Physician Notes Resident Physician Supervision Note: I independently interviewed and examined the patient and verified the govea history and physical, reviewed labs and image studies, discussed the case with the resident Dr. Hahn and agree with the findings and care plan. Subjective Patient evaluated at the bedside. Noting that she had a relatively rough night as her hospital roommate was coded. She notes this brought on extra anxiety as her own mother had a few rooms away in the past and she already had anxiety regarding her own mortality this stay. Patient notes that she had received a one time dose of Ativan overnight which greatly improved her anxiety and she was able to get at least 45 minutes of sleep and rest. She currently states that while her abdominal pain is still relatively high, it is well controlled. She also notes mild nausea that is controlled with antiemetics. Has been passing some flatus. Otherwise denies any fever, chills, SOB, chest pain. Review of Systems Review of Systems: All systems reviewed & are unremarkable except as noted in Subjective Physical Exam Constitutional: well developed and well nourished; no acute distress Eyes: PERRL, conjunctivae normal, anicteric sclerae Respiratory: normal respiratory effort, lungs clear to auscultation Cardiovascular: RRR, no murmur, no edema Gastrointestinal (Abdomen): Inspection/Auscultation: + abdominal surgical incision (dressing clean and dry), + abdominal surgical drain present (WADE draining serosang ) and + hypoactive bowel sounds; abdomen not distended and no high-pitched sounds Percussion/Palpation: + abdomen tender (TTP in upper quadrants and near surgical incision) and abdomen soft; no guarding and abdomen not rigid Psychiatric: A+Ox3, euthymic affect Results & Data Results & Data ([facility]) Vital Signs (Past 12 Hours) Vital Signs Temp Pulse Pulse Pulse Resp BP Pulse Ox 04/05/20 08:15 36.8 C 82 16 124/69 97 04/05/20 05:59 78 04/05/20 04:45 37 C 76 18 110/67 93 04/05/20 00:32 60 04/04/20 23:56 36.8 C 80 19 128/92 99 Resident Activity Tracking Resident Involvement: Resident Care Provided Care Provided: Adult Hospital Medicine
--- NOTE | 2020-04-05 13:10 | Surgery Progress Note ---
Date of Service April 05, 2020 Assessment & Plan (1) Bowel perforation: POD # 1 s/p ex lap, repair of perforated marginal ulcer - afebrile, vss - moderate postop pain, controlled - mango with cloudy serosanguineous output - UO- 450 cc in last 24 hours, improved, clear - H&H 8.8/27.5 (10.8/33.6) likely dilutional from IV fluids. (+6 liters this admission), mango non-bloody Plan: Continue IV Tylenol 1gm q8h scheduled, IV Dilaudid for mod to severe pain NGT to LIS NPO IV fluids at 125 cc/hr IV Zofran prn nausea IV Protonix drip IV Zosyn mango drain to bulb suction discontinue Dill repeat am labs OOB to chair today, ambulate hallway Consult PT/OT Continue SCDs and add Lovenox [address] Layne has seen and examined pt, agrees with above. Admission and Anticipated Discharge Date Admission Date: April 04, 2020 Subjective tired today still having abdominal pain and soreness no nausea or vomiting Physical Exam Constitutional: WD/WN, vitals as above Respiratory: normal respiratory effort; no respiratory distress, no labored breathing and no retractions Gastrointestinal (Abdomen): Inspection/Auscultation: + abdominal surgical drain present (cloudy serosangineous); abdomen not distended Per cussion/Palpation: + abdomen tender and abdomen soft; no guarding and abdomen not rigid Skin: no rashes, warm and dry + incision (clean/dry/hal in tact, no erythema) Psychiatric: A+Ox3, euthymic affect Results & Data ([facility]) Vital Signs (Past 12 Hours) Vital Signs Temp Pulse Pulse Pulse Resp BP Pulse Ox 04/05/20 11:30 36.9 C 76 18 115/59 L 96 04/05/20 08:15 36.8 C 82 16 124/69 97 04/05/20 05:59 78 04/05/20 04:45 37 C 76 18 110/67 93 Laboratory Results 04/05/20 04/05/20 04/05/20 Range/Units 12:46 06:53 06:53 WBC 10.04 (4.8-10.8) K/uL RBC 3.53 L (4.2-5.4) M/uL Hgb 8.8 L (12.0-16.0) g/dL Hct 27.5 L (37-47) % MCV 77.9 L (80-100) fL MCH 24.9 L (25-34) pg MCHC 32.0 (32-36) g/dL RDW Std Deviation 55.6 H (36.4-46.3) fL RDW Coeff of Keith 20.2 H (11.5-14.5) % Plt Count 257 (130-400) K/uL MPV 10.8 H (7.4-10.4) fL Immature Gran % (Auto) 0.2 % Neut % (Auto) 87.3 % Lymph % (Auto) 7.1 % [place] % (Auto) 4.6 % Eos % (Auto) 0.7 % Baso % (Auto) 0.1 % Neut # (Auto) 8.77 H (1.4-6.5) K/uL Lymph # (Auto) 0.71 L (1.2-3.4) K/uL [place] # (Auto) 0.46 (0.11-0.59) K/uL Eos # (Auto) 0.07 (0-0.5) K/uL Baso # (Auto) 0.01 (0-0.2) K/uL Immature Gran # (Auto) 0.02 (0.00-0.02) K/uL Anisocytosis Present Ovalocytes 1+ Sodium 139 (136-145) mmol/L Potassium 3.4 L D (3.5-5.1) mmol/L Chloride 106 (98-107) mmol/L Carbon Dioxide 26 (21-32) mmol/L Anion Gap 7.0 (3-11) BUN 11 (7-18) mg/dl Creatinine 0.57 L (0.6-1.2) mg/dl Est Cr Clr Drug Dosing 103.8 ml/min Est GFR ( Amer) 116.8 Est GFR (Non-Af Amer) 100.8 BUN/Creatinine Ratio 18.5 (10-20) Glucose 122 H (70-99) mg/dl POC Glucose 107 H (70-99) mg/dl Calcium 9.0 (8.5-10.1) mg/dl 04/05/20 04/04/20 04/04/20 Range/Units 05:54 23:36 20:03 WBC (4.8-10.8) K/uL RBC (4.2-5.4) M/uL Hgb (12.0-16.0) g/dL Hct (37-47) % MCV (80-100) fL MCH (25-34) pg MCHC (32-36) g/dL RDW Std Deviation (36.4-46.3) fL RDW Coeff of Keith (11.5-14.5) % Plt Count (130-400) K/uL MPV (7.4-10.4) fL Immature Gran % (Auto) % Neut % (Auto) % Lymph % (Auto) % [place] % (Auto) % Eos % (Auto) % Baso % (Auto) % Neut # (Auto) (1.4-6.5) K/uL Lymph # (Auto) (1.2-3.4) K/uL [place] # (Auto) (0.11-0.59) K/uL Eos # (Auto) (0-0.5) K/uL Baso # (Auto) (0-0.2) K/uL Immature Gran # (Auto) (0.00-0.02) K/uL Anisocytosis Ovalocytes Sodium (136-145) mmol/L Potassium (3.5-5.1) mmol/L Chloride (98-107) mmol/L Carbon Dioxide (21-32) mmol/L Anion Gap (3-11) BUN (7-18) mg/dl Creatinine (0.6-1.2) mg/dl Est Cr Clr Drug Dosing ml/min Est GFR ( Amer) Est GFR (Non-Af Amer) BUN/Creatinine Ratio (10-20) Glucose (70-99) mg/dl POC Glucose 110 H 119 H 121 H (70-99) mg/dl Calcium (8.5-10.1) mg/dl 04/04/20 Range/Units 17:55 WBC (4.8-10.8) K/uL RBC (4.2-5.4) M/uL Hgb (12.0-16.0) g/dL Hct (37-47) % MCV (80-100) fL MCH (25-34) pg MCHC (32-36) g/dL RDW Std Deviation (36.4-46.3) fL RDW Coeff of Keith (11.5-14.5) % Plt Count (130-400) K/uL MPV (7.4-10.4) fL Immature Gran % (Auto) % Neut % (Auto) % Lymph % (Auto) % [place] % (Auto) % Eos % (Auto) % Baso % (Auto) % Neut # (Auto) (1.4-6.5) K/uL Lymph # (Auto) (1.2-3.4) K/uL [place] # (Auto) (0.11-0.59) K/uL Eos # (Auto) (0-0.5) K/uL Baso # (Auto) (0-0.2) K/uL Immature Gran # (Auto) (0.00-0.02) K/uL Anisocytosis Ovalocytes Sodium (136-145) mmol/L Potassium (3.5-5.1) mmol/L Chloride (98-107) mmol/L Carbon Dioxide (21-32) mmol/L Anion Gap (3-11) BUN (7-18) mg/dl Creatinine (0.6-1.2) mg/dl Est Cr Clr Drug Dosing ml/min Est GFR ( Amer) Est GFR (Non-Af Amer) BUN/Creatinine Ratio (10-20) Glucose (70-99) mg/dl POC Glucose 132 H (70-99) mg/dl Calcium (8.5-10.1) mg/dl
[2020-04-05] MEDS: HYDROmorphone INJ 0.5 MG/0.5 ML SYR IV PRN ×2 (19:53→23:04)
[2020-04-06] MEDS: INSULIN ASPART 100 UNITS/ML 3 ML PEN SC SCH ×5 (00:07→20:42)
[2020-04-06] MEDS: PANTOprazole 40 MG in DEXTROSE 5% 100 ML IV SCH ×5 (00:39→21:08)
[2020-04-06] MEDS: PIPERACILLIN/TAZOBACTAM 3.375 GM in DEXTROSE 5% 100 ML IV SCH ×3 (03:26→20:32)
[2020-04-06] MEDS: LACTATED RINGER'S 1,000 ML IV SCH ×2 (03:26→15:18)
[2020-04-06] MEDS: ACETAMINOPHEN 1,000 MG/100 ML VIAL IV SCH ×3 (05:22→20:43)
[2020-04-06 06:34] LABS: Basophils # (auto) 0.02 K/uL (0-0.2); Basophils % (auto) 0.3 %; Eosinophils # (auto) 0.26 K/uL (0-0.5); Eosinophils % (auto) 3.7 %; Hematocrit (blood only) 27.2 % (37-47); Hemoglobin 8.9 g/dL (12.0-16.0); Immature Granulocytes # (auto) 0.01 K/uL (0.00-0.02); Immature Granulocytes % (auto) 0.1 %; Lymphocytes # (auto) 0.64 K/uL (1.2-3.4); Lymphocytes % (auto) 9.1 %; Mean Corpuscular Hemoglobin 25.4 pg (25-34); Mean Corpuscular Hgb Conc 32.7 g/dL (32-36); Mean Corpuscular Volume 77.5 fL (80-100); Mean Platelet Volume 10.9 fL (7.4-10.4); Monocytes % (auto) 5.7 %; Neutrophils # (auto) 5.68 K/uL (1.4-6.5); Neutrophils % (auto) 81.1 %; Platelet Count 262 K/uL (130-400); RDW Coefficient of Variation 20.4 % (11.5-14.5); Red Blood Count 3.51 M/uL (4.2-5.4); White Blood Count 7.01 K/uL (4.8-10.8)
[2020-04-06 07:13] LABS: Anisocytosis Present; Microcytosis Present
[2020-04-06] MEDS: HYDROmorphone INJ 1 MG/ML SYRINGE IV PRN ×5 (07:26→22:51)
[2020-04-06 07:40] LABS: BUN Creatinine Ratio 10.4 (10-20); Calcium 8.9 mg/dl (8.5-10.1); Creatinine Clr Calc Pharmacy 118.9 ml/min; Est GFR (African American) 121.9; Est GFR (Non-African American) 105.2; Potassium 3.7 mmol/L (3.5-5.1)
--- NOTE | 2020-04-06 09:05 | Fluoroscopy Report ---
FL upper GI series wo air CLINICAL HISTORY: Single contrast upper GI series through NGT, r/o leak COMPARISON STUDY: CT of the abdomen and pelvis April 03, 2020. FLUOROSCOPY TIME: 1.1 minutes. FLUOROSCOPIC IMAGES: 11. TECHNIQUE: Welder/Fabricator fluoroscopic images of the abdomen were obtained. A single contrast upper GI series was then performed utilizing Optiray 300 injected through the nasogastric tube. FINDINGS: Welder/Fabricator fluoroscopic images demonstrate skin hal and surgical drains as well as lumbosacr al hardware. The gastrojejunostomy is patent. No contrast extravasation is identified to suggest leak . The caliber of the opacified jejunum is normal. IMPRESSION: Patent gastrojejunostomy. No contrast extravasation to suggest leak. ACT 112: Negative or not required by law. Electronically signed by: Romie Olivas M.D. 04/06/2020 9:03 AM
--- NOTE | 2020-04-06 09:17 | Surgery Progress Note ---
Date of Service April 06, 2020 Assessment & Plan (1) Bowel perforation: POD # 2 s/p ex lap, repair of perforated marginal ulcer - afebrile, vss - moderate postop pain, controlled - mango with clear serous output - Hemoglobin 8.9 (8.8. yesterday) likely dilutional from IV fluids. - Upper GI study without leak Plan: Continue IV Tylenol 1gm q8h scheduled, IV Dilaudid for mod to severe pain. Will start PO Skandia as needed for pain. Discontinue NGT , clears IV fluids at 100 cc/hr IV Zofran prn nausea Continue IV Protonix drip until discharge IV Zosyn mango drain to bulb suction repeat am labs ambulate hallway Consulted PT/OT Continue SCDs and Lovenox [address] Layne has seen and examined pt, agrees with above. Admission and Anticipated Discharge Date Admission Date: April 04, 2020 Subjective still having moderate abdominal pain, mostly upper abdomen gas pains present no nausea or vomiting no chest pain or shortness of breath no flatus or bowel movement Dilaudid every 3-4 hours now Physical Exam Constitutional: WD/WN, vitals as above Respiratory: normal respiratory effort, lungs clear to auscultation Cardiovascular: RRR, no murmur, no edema Gastrointestinal (Abdomen): Inspection/Auscultation: abdomen normal to inspection, normal bowel sounds, + abdominal surgical incision and + abdominal surgical drain present (clear serous); abdomen not distended Skin: no rashes, warm and dry + incision (clean/dry/intact hal intact); no erythema Psychiatric: A+Ox3, euthymic affect Results & Data ([facility]) Vital Signs (Past 12 Hours) Vital Signs Temp Pulse Resp BP Pulse Ox 04/06/20 04:41 37 C 78 18 135/75 95 04/06/20 00:12 36.9 C 76 18 158/65 H 97 Laboratory Results 04/06/20 04/06/20 04/06/20 Range/Units 06:12 05:50 05:50 WBC 7.01 (4.8-10.8) K/uL RBC 3.51 L (4.2-5.4) M/uL Hgb 8.9 L (12.0-16.0) g/dL Hct 27.2 L (37-47) % MCV 77.5 L (80-100) fL MCH 25.4 (25-34) pg MCHC 32.7 (32-36) g/dL RDW Std Deviation 57.0 H (36.4-46.3) fL RDW Coeff of Keith 20.4 H (11.5-14.5) % Plt Count 262 (130-400) K/uL MPV 10.9 H (7.4-10.4) fL Immature Gran % (Auto) 0.1 % Neut % (Auto) 81.1 % Lymph % (Auto) 9.1 % [place] % (Auto) 5.7 % Eos % (Auto) 3.7 % Baso % (Auto) 0.3 % Neut # (Auto) 5.68 (1.4-6.5) K/uL Lymph # (Auto) 0.64 L (1.2-3.4) K/uL [place] # (Auto) 0.40 (0.11-0.59) K/uL Eos # (Auto) 0.26 (0-0.5) K/uL Baso # (Auto) 0.02 (0-0.2) K/uL Immature Gran # (Auto) 0.01 (0.00-0.02) K/uL Anisocytosis Present Microcytosis Present Sodium 139 (136-145) mmol/L Potassium 3.7 (3.5-5.1) mmol/L Chloride 108 H (98-107) mmol/L Carbon Dioxide 26 (21-32) mmol/L Anion Gap 5.0 (3-11) BUN 5 L D (7-18) mg/dl Creatinine 0.50 L (0.6-1.2) mg/dl Est Cr Clr Drug Dosing 118.9 ml/min Est GFR ( Amer) 121.9 Est GFR (Non-Af Amer) 105.2 BUN/Creatinine Ratio 10.4 (10-20) Glucose 94 (70-99) mg/dl POC Glucose 113 H (70-99) mg/dl Calcium 8.9 (8.5-10.1) mg/dl 04/06/20 04/05/20 04/05/20 Range/Units 00:05 18:02 12:46 WBC (4.8-10.8) K/uL RBC (4.2-5.4) M/uL Hgb (12.0-16.0) g/dL Hct (37-47) % MCV (80-100) fL MCH (25-34) pg MCHC (32-36) g/dL RDW Std Deviation (36.4-46.3) fL RDW Coeff of Keith (11.5-14.5) % Plt Count (130-400) K/uL MPV (7.4-10.4) fL Immature Gran % (Auto) % Neut % (Auto) % Lymph % (Auto) % [place] % (Auto) % Eos % (Auto) % Baso % (Auto) % Neut # (Auto) (1.4-6.5) K/uL Lymph # (Auto) (1.2-3.4) K/uL [place] # (Auto) (0.11-0.59) K/uL Eos # (Auto) (0-0.5) K/uL Baso # (Auto) (0-0.2) K/uL Immature Gran # (Auto) (0.00-0.02) K/uL Anisocytosis Microcytosis Sodium (136-145) mmol/L Potassium (3.5-5.1) mmol/L Chloride (98-107) mmol/L Carbon Dioxide (21-32) mmol/L Anion Gap (3-11) BUN (7-18) mg/dl Creatinine (0.6-1.2) mg/dl Est Cr Clr Drug Dosing ml/min Est GFR ( Amer) Est GFR (Non-Af Amer) BUN/Creatinine Ratio (10-20) Glucose (70-99) mg/dl POC Glucose 111 H 103 H 107 H (70-99) mg/dl Calcium (8.5-10.1) mg/dl Diagnostic Findings FL upper GI series wo air CLINICAL HISTORY: Single contrast upper GI series through NGT, r/o leak COMPARISON STUDY: CT of the abdomen and pelvis April 03, 2020. FLUOROSCOPY TIME: 1.1 minutes. FLUOROSCOPIC IMAGES: 11. TECHNIQUE: Outsoles Channel Opener fluoroscopic images of the abdomen were obtained. A single contrast upper GI series was then performed utilizing Optiray 300 injected through the nasogastric tube. FINDINGS: Outsoles Channel Opener fluoroscopic images demonstrate skin hal and surgical drains as well as lumbosacral hardware. The gastrojejunostomy is patent. No contrast extravasation is identified to suggest leak. The caliber of the opacified jejunum is normal. IMPRESSION: Patent gastrojejunostomy. No contrast extravasation to suggest leak.
[2020-04-06] MEDS: ENOXAPARIN INJ 40 MG/0.4 ML SYR SQ SCH (09:24)
[2020-04-06] MEDS: NICOTINE 21 MG/24 HR TDSY TD SCH (09:24)
--- NOTE | 2020-04-06 09:47 | Hospitalist Progress Note ---
Date of Service April 06, 2020 Assessment & Plan (1) Bowel perforation: Patient is a 59 year old female with PMHx Juliocesar-en-y gastrojejunostomy 2008 w/ ulceration noted 01/2020 on EGD, DM2, HTN, GERD, Tobacco use who presented initially with severe abdominal pain, found to have free air in the LUQ on Abdominal Pelvis CT and underwent emergent ex lap and oversewing of the gastrojejunal anastomosis on 04/04/20 at midnight. Bowel Perforation w/ Peritonitis -Free air noted in LUQ of Ab/Pelv CT on admission -Prior hx of Juliocesar-en-y gastrojejunostomy w/ known ulceration -S/P Ex Lap and Oversewing of the gastrojejunal anastomosis on 04/04/20 at midnight, POD#0 -Continue IV Zosyn -Continue IV Zofran PRN nausea -Continue Protonix gtt until discharge -Continue Dilaudid 1mg q2h PRN severe pain -Add PO [place] q4h PRN pain -Continue scheduled IV Tylenol 1g q8h for pain -NGT dc'd this AM per surgical team -Diet advanced to clears. -Consider addition of Simethicone 80mg if gas pain worsens -PT/OT ordered Hypokalemia - Resolved -Potassium at 3.4 04/05/20 -Resolved after supplementation DM2 -Diet controlled s/p juliocesar-en-y gastrojejunostomy -Continue SSI while inpatient HTN -Holding PO HCTZ -Blood pressures appropriate GERD -Hold home Sucralfate and Omeprazole -Protonix gtt Tobacco Use -Had been smoking 2PPD until the last month since decreasing to 1PPD -Continue Nicotine Patch PRN -Had long discussion with patient in regards to Tobacco cessation. Patient agreeing, interested in Lozenges vs patch after discharge. -Reinforced need for tobacco cessation this AM Hx PE, RLE DVT, Superior Mesenteric Vein Thrombosis -DVT prophylaxis started by surgical team 12 hours post op -Continue Lovenox 40mg QD Dispo: PCU FEN: Clear liquid diet, LR 100ml/hr DVT: SCD, Lovenox 40mg QD Code: Full Admission and Anticipated Discharge Date Admission Date: April 04, 2020 Supervising Physician Co-Signing Physician Notes Resident Physician Supervision Note: I independently interviewed and examined the patient and verified the govea history and physical, reviewed labs and image studies, discussed the case with the resident Dr. Hahn and agree with the findings and care plan. Subjective Patient evaluated at the bedside. Patient had just returned from her gastric series which she feels went well. Was noting she was able to pass urine overnight without guevara catheter. Did not endorse more flatus overnight. She is still noting abdominal pain, primarily in the upper quadrants and gas pain. Otherwise denies fever, chills, SOB, chest pain. Review of Systems Review of Systems: All systems reviewed & are unremarkable except as noted in Subjective Physical Exam Constitutional: well developed and well nourished; no acute distress Eyes: PERRL, conjunctivae normal, anicteric sclerae Respiratory: normal respiratory effort, lungs clear to auscultation Cardiovascular: RRR, no murmur, no edema Gastrointestinal (Abdomen): Inspection/Auscultation: + abdominal surgical incision (Kohler in place, non-erythematous), + abdominal surgical drain present (WADE draining clear serosang ) and + hypoactive bowel sounds; abdomen not distended and no high-pitched sounds Percussion/Palpation: + abdomen tender (TTP in upper quadrants ) and abdomen soft; no guarding and abdomen not rigid Psychiatric: A+Ox3, euthymic affect Results & Data Results & Data ([facility]) Vital Signs (Past 12 Hours) Vital Signs Temp Pulse Resp BP BP Pulse Ox 04/06/20 09:34 36.8 C 66 20 159/89 H 98 04/06/20 04:41 37 C 78 18 135/75 95 04/06/20 00:12 36.9 C 76 18 158/65 H 97 Resident Activity Tracking Resident Involvement: Resident Care Provided Care Provided: Adult [facility] Medicine
[2020-04-06] MEDS: HYDROCODONE/ACETAMOPHEN 5/325MG TAB PO PRN ×3 (11:38→20:32)
[2020-04-06] MEDS ORDERED: SIMETHICONE 40 MG/0.6 ML 30ML PO PRN (15:27)
[2020-04-06] MEDS: SIMETHICONE 80 MG CHEW PO PRN (20:32)
[2020-04-07] MEDS: HYDROCODONE/ACETAMOPHEN 5/325MG TAB PO PRN ×5 (00:22→23:55)
[2020-04-07] MEDS: LACTATED RINGER'S 1,000 ML IV SCH ×3 (00:23→21:32)
[2020-04-07] MEDS: PANTOprazole 40 MG in DEXTROSE 5% 100 ML IV SCH ×4 (01:46→17:21)
[2020-04-07] MEDS: HYDROmorphone INJ 1 MG/ML SYRINGE IV PRN ×5 (02:46→20:16)
[2020-04-07] MEDS: SIMETHICONE 80 MG CHEW PO PRN ×2 (02:50→21:13)
[2020-04-07] MEDS: PIPERACILLIN/TAZOBACTAM 3.375 GM in DEXTROSE 5% 100 ML IV SCH ×3 (02:52→21:13)
[2020-04-07 07:09] LABS: Basophils # (auto) 0.01 K/uL (0-0.2); Basophils % (auto) 0.2 %; Eosinophils # (auto) 0.26 K/uL (0-0.5); Eosinophils % (auto) 5.7 %; Hematocrit (blood only) 26.9 % (37-47); Hemoglobin 8.6 g/dL (12.0-16.0); Mean Corpuscular Hemoglobin 24.9 pg (25-34); Mean Platelet Volume 10.9 fL (7.4-10.4); Monocytes # (auto) 0.35 K/uL (0.11-0.59); Monocytes % (auto) 7.7 %; Neutrophils # (auto) 3.44 K/uL (1.4-6.5); Neutrophils % (auto) 75.4 %; Platelet Count 267 K/uL (130-400); RDW Coefficient of Variation 20.1 % (11.5-14.5); RDW Standard Deviation 56.7 fL (36.4-46.3); Red Blood Count 3.45 M/uL (4.2-5.4); White Blood Count 4.56 K/uL (4.8-10.8)
[2020-04-07 07:21] LABS: BUN Creatinine Ratio 6.7 (10-20); Creatinine Clr Calc Pharmacy 112.3 ml/min; Est GFR (African American) 119.6; Est GFR (Non-African American) 103.2; Potassium 3.5 mmol/L (3.5-5.1)
--- NOTE | 2020-04-07 07:25 | Hospitalist Progress Note ---
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 Bowel Perforation w/ Peritonitis status post ex lap and oversewing of the gastrojejunal anastomosis postop day #3 Patient with a prior history of Juliocesar-en-Y gastrectomy with unknown ulceration presented to the hospital with complaints of abdominal pain, CT on admission noted free air in the left upper quadrant. Surgery was consulted and patient was taken for a ex lap and oversewing of the gastrojejunal anastomosis on 04/04/2020. Patient has done well in the immediate postoperative period. Patient has been receiving IV Zosyn for antibiotic prophylaxis treatment. She is currently on a Protonix drip and this will be continued until discharge. Her pain has been controlled with Dilaudid 1 mg every 2 hours for severe pain, [place] every 4 hours for pain, scheduled Tylenol 1 g every 8 hours. Nasogastric tube was DC'd yesterday to clears. Patient tolerated this well. -S/P Ex Lap and Oversewing of the gastrojejunal anastomosis on 04/04/20 at midnight, POD#3 -Continue IV Zosyn -Continue IV Zofran PRN nausea -Continue Protonix gtt until discharge -Continue Dilaudid 1mg q2h PRN severe pain -Continue PO [place] q4h PRN pain -Continue scheduled IV Tylenol 1g q8h for pain -Diet advanced to clears, tolerating well -Consider addition of Simethicone 80mg if gas pain worsens -Routine postoperative care per surgery Hypokalemia - Resolved -Potassium at 3.4 04/05/20 -Resolved after supplementation DM2 -Diet controlled s/p juliocesar-en-y gastrojejunostomy -Continue SSI while inpatient HTN -Holding PO HCTZ -Blood pressures appropriate GERD -Hold home Sucralfate and Omeprazole -Protonix gtt Tobacco Use -Had been smoking 2PPD until the last month since decreasing to 1PPD -Had long discussion with patient in regards to Tobacco cessation. Patient agreeing, interested in Lozenges vs patch after discharge. -Continue to Reinforce need for tobacco cessation this AM -Continue Nicotine Patch PRN Hx PE, RLE DVT, Superior Mesenteric Vein Thrombosis -DVT prophylaxis started by surgical team 12 hours post op -Continue Lovenox 40mg QD FENa: Clear liquid diet, LR 100ml/hr Code Status: Full DVT PPX:SCD, Lovenox PT/OT:ordered Dispo:U Bobby Licea MD PGY 2, FCM This chart was completed utilizing [employer] voice recognition software. Grammatical errors, random word insertions, pronoun errors, and in complete sentences are an occasional consequence of the system. Any questions or concerns about the content, text, or information contained within the body of this dictation should be addressed directly to the physician for clarification. Admission and Anticipated Discharge Date Admission Date: April 04, 2020 Supervising Physician Co-Signing Physician Notes Resident Physician Supervision Note: I independently interviewed and examined the patient and verified the govea history and physical, reviewed labs and image studies, discussed the case with the resident Dr. Hahn and agree with the findings and care plan. Subjective Patient sitting up in bed this morning in no acute distress, patient is pleasant and cheerful, reporting that she is felt the best that she has since she presented to the hospital. Patient had a lengthy discussion about the importance of tobacco cessation today including the need to remove tobacco paraphernalia from the house including lighters and ashtrays, find other activities to do well she would typically smoke cigarettes such as while driving the car, or playing on her iPad. Patient is highly motivated to quit smoking, and understands the importance and the contribution of this to her current presentation. Otherwise patient continues to be postoperative milestones including voiding, passing flatus, sleeping, and tolerating her diet, no bowel movement yet. All questions were answered no acute concerns Physical Exam Physical Exam: General: Lying in bed no acute distress HEENT: Normocephalic atraumatic Neck: Normal to visual inspection, trachea midline Cardiac: Regular rate and rhythm I did not appreciate significant murmurs rubs or gallops, normal S1, normal S2, negative pedal edema, negative calf tenderness Respiratory: Clear to auscultation bilaterally symmetrical chest expansion I did not appreciate any significant wheezes, rales, rhonchi, normal inspiratory effort GI: Soft, tender to palpation in around the surgical site, surgical site is clean dry and intact, no evidence of surgical infection, WADE drain in place. MSK: Moves all extremities Skin: Well perfused, clean, dry, intact Neuro: Alert and oriented x4 Psych: Calm and cooperative with the interview Results & Data Results & Data ([facility]) Vital Signs (Past 12 Hours) Vital Signs Temp Pulse Pulse Resp BP BP Pulse Ox 04/07/20 04:04 37 C 62 18 145/77 H 96 04/06/20 23:54 37.6 C H 104 H 18 146/84 H 93 04/06/20 23:34 73 04/06/20 19:45 37.5 C 72 18 165/97 H 96 Resident Activity Tracking Resident Involvement: Resident Care Provided Care Provided: Adult Hospital Medicine
[2020-04-07] MEDS: ENOXAPARIN INJ 40 MG/0.4 ML SYR SQ SCH (08:01)
[2020-04-07] MEDS: NICOTINE 21 MG/24 HR TDSY TD SCH (08:01)
[2020-04-07] MEDS: INSULIN ASPART 100 UNITS/ML 3 ML PEN SC SCH ×4 (09:31→21:14)
[2020-04-07 09:36] LABS: Anisocytosis Present
[2020-04-07] MEDS: POTASSIUM CHLORIDE CRTAB 20 MEQ TABCR PO SCH ×3 (09:48→13:16)
--- NOTE | 2020-04-07 10:00 | Surgery Progress Note ---
Date of Service April 07, 2020 Assessment & Plan (1) Bowel perforation: POD # 3 s/p ex lap, repair of perforated marginal ulcer - afebrile, vss - moderate postop pain, controlled - mango with clear serous output - Hemoglobin 8.6 (8.9 yesterday) likely dilutional from IV fluids - Upper GI study without leak Plan: Continue PO [place] as needed for pain. advance to full liquids decrease IV fluids to 50 cc/hr IV Zofran prn nausea Continue IV Protonix drip until discharge IV Zosyn mango drain to bulb suction, discontinue on discharge ambulate hallway Continue PT/OT Continue SCDs and Lovenox 40 mg sq Likely discharge over weekend if does well. Will need f/u with Dr. Layne in about 1.5 weeks. Discharge instructions provided. Dr. Abarca covering over weekend Dr. Layne has seen and examined pt, agrees with above. Admission and Anticipated Discharge Date Admission Date: April 04, 2020 Subjective feeling better today tolerated clear liquids without increased pain, n/v no chest pain/sob pain in shoulder passing gas no bowel movement yet Physical Exam Constitutional: WD/WN, vitals as above Respiratory: normal respiratory effort; no respiratory distress and no labored breathing Gastrointestinal (Abdomen): Inspection/Auscultation: abdomen normal to inspection, + abdominal surgical incision (clean/dry/hal intact, no erythema) and + abdominal surgical drain present (serous); abdomen not distended Percussion/Palpation: + abdomen tender (upper abdomen, improved) and abdomen soft; no guarding and abdomen not rigid Skin: no rashes, warm and dry Psychiatric: A+Ox3, euthymic affect Results & Data ([facility]) Vital Signs (Past 12 Hours) Vital Signs Temp Pulse Pulse Resp BP Pulse Ox 04/07/20 04:04 37 C 62 18 145/77 H 96 04/06/20 23:54 37.6 C H 104 H 18 146/84 H 93 04/06/20 23:34 73 Laboratory Results 04/07/20 04/07/20 04/07/20 Range/Units 09:34 07:36 06:01 WBC (4.8-10.8) K/uL RBC (4.2-5.4) M/uL Hgb (12.0-16.0) g/dL Hct (37-47) % MCV (80-100) fL MCH (25-34) pg MCHC (32-36) g/dL RDW Std Deviation (36.4-46.3) fL RDW Coeff of Keith (11.5-14.5) % Plt Count (130-400) K/uL MPV (7.4-10.4) fL Immature Gran % (Auto) % Neut % (Auto) % Lymph % (Auto) % [place] % (Auto) % Eos % (Auto) % Baso % (Auto) % Neut # (Auto) (1.4-6.5) K/uL Lymph # (Auto) (1.2-3.4) K/uL [place] # (Auto) (0.11-0.59) K/uL Eos # (Auto) (0-0.5) K/uL Baso # (Auto) (0-0.2) K/uL Immature Gran # (Auto) (0.00-0.02) K/uL Anisocytosis Sodium 139 (136-145) mmol/L Potassium 3.5 (3.5-5.1) mmol/L Chloride 106 (98-107) mmol/L Carbon Dioxide 28 (21-32) mmol/L Anion Gap 5.0 (3-11) BUN 4 L (7-18) mg/dl Creatinine 0.53 L (0.6-1.2) mg/dl Est Cr Clr Drug Dosing 112.3 ml/min Est GFR ( Amer) 119.6 Est GFR (Non-Af Amer) 103.2 BUN/Creatinine Ratio 6.7 L (10-20) Glucose 89 (70-99) mg/dl POC Glucose 101 H (70-99) mg/dl Calcium 9.0 (8.5-10.1) mg/dl Vitamin B12 Pending 04/07/20 04/06/20 04/06/20 Range/Units 06:01 20:21 16:34 WBC 4.56 L (4.8-10.8) K/uL RBC 3.45 L (4.2-5.4) M/uL Hgb 8.6 L (12.0-16.0) g/dL Hct 26.9 L (37-47) % MCV 78.0 L (80-100) fL MCH 24.9 L (25-34) pg MCHC 32.0 (32-36) g/dL RDW Std Deviation 56.7 H (36.4-46.3) fL RDW Coeff of Keith 20.1 H (11.5-14.5) % Plt Count 267 (130-400) K/uL MPV 10.9 H (7.4-10.4) fL Immature Gran % (Auto) 0.0 % Neut % (Auto) 75.4 % Lymph % (Auto) 11.0 % [place] % (Auto) 7.7 % Eos % (Auto) 5.7 % Baso % (Auto) 0.2 % Neut # (Auto) 3.44 (1.4-6.5) K/uL Lymph # (Auto) 0.50 L (1.2-3.4) K/uL [place] # (Auto) 0.35 (0.11-0.59) K/uL Eos # (Auto) 0.26 (0-0.5) K/uL Baso # (Auto) 0.01 (0-0.2) K/uL Immature Gran # (Auto) 0.00 (0.00-0.02) K/uL Anisocytosis Present Sodium (136-145) mmol/L Potassium (3.5-5.1) mmol/L Chloride (98-107) mmol/L Carbon Dioxide (21-32) mmol/L Anion Gap (3-11) BUN (7-18) mg/dl Creatinine (0.6-1.2) mg/dl Est Cr Clr Drug Dosing ml/min Est GFR ( Amer) Est GFR (Non-Af Amer) BUN/Creatinine Ratio (10-20) Glucose (70-99) mg/dl POC Glucose 100 H 101 H (70-99) mg/dl Calcium (8.5-10.1) mg/dl Vitamin B12 04/06/20 Range/Units 11:20 WBC (4.8-10.8) K/uL RBC (4.2-5.4) M/uL Hgb (12.0-16.0) g/dL Hct (37-47) % MCV (80-100) fL MCH (25-34) pg MCHC (32-36) g/dL RDW Std Deviation (36.4-46.3) fL RDW Coeff of Keith (11.5-14.5) % Plt Count (130-400) K/uL MPV (7.4-10.4) fL Immature Gran % (Auto) % Neut % (Auto) % Lymph % (Auto) % [place] % (Auto) % Eos % (Auto) % Baso % (Auto) % Neut # (Auto) (1.4-6.5) K/uL Lymph # (Auto) (1.2-3.4) K/uL [place] # (Auto) (0.11-0.59) K/uL Eos # (Auto) (0-0.5) K/uL Baso # (Auto) (0-0.2) K/uL Immature Gran # (Auto) (0.00-0.02) K/uL Anisocytosis Sodium (136-145) mmol/L Potassium (3.5-5.1) mmol/L Chloride (98-107) mmol/L Carbon Dioxide (21-32) mmol/L Anion Gap (3-11) BUN (7-18) mg/dl Creatinine (0.6-1.2) mg/dl Est Cr Clr Drug Dosing ml/min Est GFR ( Amer) Est GFR (Non-Af Amer) BUN/Creatinine Ratio (10-20) Glucose (70-99) mg/dl POC Glucose 101 H (70-99) mg/dl Calcium (8.5-10.1) mg/dl Vitamin B12
[2020-04-07] MEDS ORDERED: CYANOCOBALAMIN 30 MCG in SYRINGE 0.97 ML IM SCH (11:00)
[2020-04-08] MEDS: HYDROmorphone INJ 1 MG/ML SYRINGE IV PRN ×5 (02:19→10:21)
[2020-04-08] MEDS: PIPERACILLIN/TAZOBACTAM 3.375 GM in DEXTROSE 5% 100 ML IV SCH ×2 (04:19→11:29)
[2020-04-08] MEDS: PANTOprazole 40 MG in DEXTROSE 5% 100 ML IV SCH ×6 (04:20→23:30)
[2020-04-08] MEDS: HYDROCODONE/ACETAMOPHEN 5/325MG TAB PO PRN ×4 (06:04→19:34)
--- NOTE | 2020-04-08 06:17 | Surgery Progress Note ---
Date of Service April 08, 2020 Assessment & Plan (1) Bowel perforation: The patient is postoperative day #4, repair of perforated ulcer Continue analgesics We will continue the patient on full liquid diet. Due to the pain she is experiencing she does not feel comfortable advancing her diet at this time Continue to encourage ambulation in the hallway We will continue her WADE drain to bulb suction while she is in the hospital. This is only drained approximately 10 cc over the last 24 hours Continue antibiotics in the form of Zosyn Continue Protonix for GI prophylaxis Continue intravenous fluids until oral intake is reliable Lovenox is in place for DVT prevention Admission and Anticipated Discharge Date Admission Date: April 04, 2020 Supervising Physician Co-Signing Physician Notes Patient overall is resting comfortably and moving about with minimal discomfort she did states that her belly on either side of the incision until swollen she is tolerating her diet has not had any bowel movement yet as passed flatus and her urine output has been adequate The abdomen is soft the upper midline incision is healed well there is no cellulitis hal are intact the Reese drainage and right upper quadrant is serous sanguinous minimally minimally bilious the patient does complain of pain mostly in her right upper quadrant although by exam I do not feel a provoke any tenderness She states she had had evaluation of her gallbladder with a HIDA scan and ultrasound before they were all negative. Her fluid status evaluated she appears to be a little bit overdue therefore we will DC the IV fluids maintain her on this diet and hopefully be able to stimulate more GI function I will cut back on her analgesics Subjective Patient notes she is having some abdominal pain related to her surgery it is most present in the right upper quadrant. She is currently receiving full liquids and is tolerating this well without any nausea or vomiting. She is passing flatus but not having much in the way of bowel movements. She has been ambulating in the hallways. Physical Exam Neck: trachea midline Respiratory: normal respiratory effort; no respiratory distress and no labored breathing Gastrointestinal (Abdomen): Midline incision is well approximated with hal. There is a WADE drain present. Bowel sounds are present. Her abdomen is soft and nondistended. She has pain with palpation near her surgical incision as well as in the right upper quadrant. Results & Data ([facility]) Vital Signs (Past 12 Hours) Vital Signs Temp Pulse Resp BP BP Pulse Ox 04/08/20 04:08 36.9 C 62 18 136/85 96 04/08/20 00:25 37.1 C 69 18 119/78 99 04/07/20 19:04 37.0 C 65 18 124/80 97 PG Care Time/CCT Total # of Minutes Spent Total Time Spent with Patient: Total time spent is greater than 50% in coordination of care (as documented) at patient's floor/unit and/or counseling patient: Coding Level of Care Code None Diagnoses Bowel perforation K63.1
[2020-04-08 06:43] LABS: Basophils # (auto) 0.01 K/uL (0-0.2); Basophils % (auto) 0.2 %; Eosinophils % (auto) 9.6 %; Hematocrit (blood only) 28.4 % (37-47); Hemoglobin 9.2 g/dL (12.0-16.0); Immature Granulocytes # (auto) 0.01 K/uL (0.00-0.02); Immature Granulocytes % (auto) 0.2 %; Lymphocytes % (auto) 21.6 %; Mean Corpuscular Hemoglobin 25.3 pg (25-34); Mean Corpuscular Hgb Conc 32.4 g/dL (32-36); Mean Platelet Volume 10.5 fL (7.4-10.4); Monocytes # (auto) 0.55 K/uL (0.11-0.59); Monocytes % (auto) 13.2 %; Neutrophils % (auto) 55.2 %; Platelet Count 277 K/uL (130-400); RDW Coefficient of Variation 19.8 % (11.5-14.5); RDW Standard Deviation 56.4 fL (36.4-46.3); Red Blood Count 3.64 M/uL (4.2-5.4); White Blood Count 4.17 K/uL (4.8-10.8)
[2020-04-08 07:00] LABS: BUN Creatinine Ratio 5.5 (10-20); Calcium 8.7 mg/dl (8.5-10.1); Creatinine Clr Calc Pharmacy 108.1 ml/min; Est GFR (African American) 118.2; Est GFR (Non-African American) 101.9; Potassium 3.7 mmol/L (3.5-5.1)
[2020-04-08] MEDS: INSULIN ASPART 100 UNITS/ML 3 ML PEN SC SCH ×2 (07:46→12:13)
[2020-04-08] MEDS: ENOXAPARIN INJ 40 MG/0.4 ML SYR SQ SCH (08:07)
[2020-04-08] MEDS: NICOTINE 21 MG/24 HR TDSY TD SCH (08:07)
[2020-04-08] MEDS: SIMETHICONE 80 MG CHEW PO PRN ×3 (09:27→22:29)
--- NOTE | 2020-04-08 15:46 | Hospitalist Progress Note ---
Date of Service April 08, 2020 Assessment & Plan (1) Bowel perforation: Patient is a 59 year old female with PMHx Will-en-y gastrojejunostomy 2008 w/ ulceration noted 01/2020 on EGD, DM2, HTN, GERD, Tobacco use who presented initially with severe abdominal pain, found to have free air in the LUQ on Abdominal Pelvis CT and underwent emergent ex lap and oversewing of the gastrojejunal anastomosis on 04/04/20 at midnight. Bowel Perforation w/ Peritonitis status post ex lap and oversewing of the gastrojejunal anastomosis postop day #4 -Patient with a prior history of Will-en-Y gastrectomy with unknown ulceration presented to the hospital with complaints of abdominal pain, CT on admission noted free air in the left upper quadrant. Surgery was consulted and patient was taken for a ex lap and oversewing of the gastrojejunal anastomosis on 04/04/2020. Patient has done well in the immediate postoperative period. -S/P Ex Lap and Oversewing of the gastrojejunal anastomosis on 04/04/20 at midnight, POD#4 -Nasogastric tube was DC'd 04/06 to clears and then to full liquids. Due to the pain pt is experiencing she does not feel comfortable advancing her diet at this time, hopefully advance tomorrow -Continue IV Zosyn -Continue IV Zofran PRN nausea -Continue Protonix gtt until discharge -Continue Dilaudid 1mg q2h PRN severe pain, PO [place] q4h PRN pain , scheduled IV Tylenol 1g q8h for pain -Routine postoperative care per surgery-- will continue her WADE drain to bulb suction while she is in the hospital DM2 -Diet controlled s/p will-en-y gastrojejunostomy -Continue SSI while inpatient HTN -Holding PO HCTZ -Blood pressures appropriate GERD -Hold home Sucralfate and Omeprazole -Protonix gtt Tobacco Use -Had been smoking 2PPD until the last month since decreasing to 1PPD -Has had long discussion with patient in regards to Tobacco cessation. Patient agreeing, interested in Lozenges vs patch after discharge. Continue to educate that smoking will only prolong recovery -Continue Nicotine Patch PRN Hx PE, RLE DVT, Superior Mesenteric Vein Thrombosis -DVT prophylaxis started by surgical team 12 hours post op -Continue Lovenox 40mg QD FEN/GI: Full liquid diet DVT PPX: SCD, Lovenox Code Status: Full Dispo: PCU. PT recommend return home with home health PT at discharge. May be discharged tomorrow or Friday if goes well. Patient will need follow-up with Dr. Lyane in about 1.5 weeks. CM working on referral to [facility]. Admission and Anticipated Discharge Date Admission Date: April 04, 2020 Supervising Physician Co-Signing Physician Notes Resident Physician Supervision Note: I independently interviewed and examined the patient and verified the govea hist ory and physical, reviewed labs and image studies, discussed the case with the resident Dr. Macdonald and agree with the findings and care plan. Subjective Patient found in chair this morning. No acute overnight events. Patient notes having some right upper quadrant abdominal pain related to her surgery. Patient tolerating p.o. intake, no nausea vomiting. No bowel movement yet but passing gas. Ambulate without issue. Review of Systems Review of Systems: All systems reviewed & are unremarkable except as noted in HPI & below Physical Exam Constitutional: WD/WN, vitals as above Eyes: PERRL, conjunctivae normal, anicteric sclerae ENMT: external ear and nose normal, oropharynx normal Respiratory: normal respiratory effort, lungs clear to auscultation Cardiovascular: RRR, no murmur, no edema Gastrointestinal (Abdomen): Inspection/Auscultation: + abdominal surgical incision (surgical site is clean dry and intact, WADE drain in place) Percussion/Palpation: + abdomen tender (tender to palpation in around the surgical site and RUQ) and abdomen soft; no guarding Skin: no rashes, warm and dry Psychiatric: A+Ox3, euthymic affect Results & Data Results & Data ([facility]) Vital Signs (Past 12 Hours) Vital Signs Temp Pulse Resp BP BP Pulse Ox 04/08/20 14:46 36.8 C 71 18 127/66 97 04/08/20 11:18 36.9 C 80 18 146/70 H 94 04/08/20 07:21 37 C 85 18 154/76 H 94 04/08/20 04:08 36.9 C 62 18 136/85 96 Laboratory Results Laboratory Results - last 24 hr 04/07/20 04/07/20 04/08/20 16:27 20:13 06:19 WBC 4.17 L RBC 3.64 L Hgb 9.2 L Hct 28.4 L MCV 78.0 L MCH 25.3 MCHC 32.4 RDW Std Deviation 56.4 H RDW Coeff of Keith 19.8 H Plt Count 277 MPV 10.5 H Immature Gran % (Auto) 0.2 Neut % (Auto) 55.2 Lymph % (Auto) 21.6 [place] % (Auto) 13.2 Eos % (Auto) 9.6 Baso % (Auto) 0.2 Neut # (Auto) 2.30 Lymph # (Auto) 0.90 L [place] # (Auto) 0.55 Eos # (Auto) 0.40 Baso # (Auto) 0.01 Immature Gran # (Auto) 0.01 Sodium Potassium Chloride Carbon Dioxide Anion Gap BUN Creatinine Est Cr Clr Drug Dosing Est GFR ( Amer) Est GFR (Non-Af Amer) BUN/Creatinine Ratio Glucose POC Glucose 92 118 H Calcium 04/08/20 04/08/20 04/08/20 06:19 07:27 11:23 WBC RBC Hgb Hct MCV MCH MCHC RDW Std Deviation RDW Coeff of Keith Plt Count MPV Immature Gran % (Auto) Neut % (Auto) Lymph % (Auto) [place] % (Auto) Eos % (Auto) Baso % (Auto) Neut # (Auto) Lymph # (Auto) [place] # (Auto) Eos # (Auto) Baso # (Auto) Immature Gran # (Auto) Sodium 138 Potassium 3.7 Chloride 105 Carbon Dioxide 28 Anion Gap 5.0 BUN 3 L Creatinine 0.55 L Est Cr Clr Drug Dosing 108.1 Est GFR ( Amer) 118.2 Est GFR (Non-Af Amer) 101.9 BUN/Creatinine Ratio 5.5 L Glucose 95 POC Glucose 119 H 105 H Calcium 8.7 Medications Administered Current Inpatient Medications Hydrocodone Bitart/Acetaminophen (Hydrocodone/Acetamophen 5/325mg Tab) 1 tab PO Q4H PRN PRN Reason: Pain Stop: 04/20/20 11:06 Last Admin: 04/08/20 11:30 Dose: 1 tab Documented by: Dextrose (Dextrose 50% 50 Ml Syringe) 25 - 50 ml IV UD PRN; Protocol PRN Reason: Hypoglycemia Protocol Stop: 05/04/20 05:02 Enoxaparin Sodium (Enoxaparin Inj 40 Mg/0.4 Ml Syr) 40 mg SQ QAM MINDY Stop: 05/04/20 11:59 Last Admin: 04/08/20 08:07 Dose: 40 mg Documented by: Glucagon (Glucagon For Inj 1 Mg Vial) 1 mg SQ UD PRN; Protocol PRN Reason: Hypoglycemia Protocol Stop: 05/04/20 05:02 Glucose (Glucose 10 Tabs/Tube) 4 - 8 tabs PO UD PRN; Protocol PRN Reason: Hypoglycemia Protocol Stop: 05/04/20 05:02 Glucose (Glucose 40% Gel 15 Gm Tube) 15 - 30 gm PO UD PRN; Protocol PRN Reason: Hypoglycemia Protocol Stop: 05/04/20 05:02 Pantoprazole Sodium 40 mg/ (Dextrose) 100 mls @ 20 mls/hr IV Q5H [facility] Stop: 05/04/20 00:14 Last Admin: 04/08/20 14:30 Dose: 8 mg/hr, 20 mls/hr Documented by: Insulin Aspart (Insulin Aspart 100 Units/Ml 3 Ml Pen) 0 units SC ACHS [facility] Stop: 05/06/20 20:59 Last Admin: 04/08/20 12:13 Dose: Not Given Documented by: Miscellaneous (Remove Nicoderm Patch) 1 ea N/A [id number] [facility] Stop: 05/05/20 08:58 Last Admin: 04/08/20 08:07 Dose: 1 ea Documented by: Miscellaneous (Carbohydrates For Hypoglycemia ) 15 - 30 gm PO UD PRN PRN Reason: Hypoglycemia Protocol Stop: 05/04/20 05:02 Nicotine (Nicotine 21 Mg/24 Hr Tdsy) 21 mg TD QAM [facility] Stop: 05/04/20 08:59 Last Admin: 04/08/20 08:07 Dose: 21 mg Documented by: Ondansetron HCl (Ondansetron Inj 2 Mg/Ml 2 Ml Vial) 4 mg IV Q6H PRN PRN Reason: Nausea Stop: 05/04/20 01:18 Last Admin: 04/05/20 19:59 Dose: 4 mg Documented by: Simethicone (Simethicone 80 Mg Chew) 80 mg PO Q6H PRN PRN Reason: Gas or Constipation Stop: 05/06/20 19:49 Last Admin: 04/08/20 09:27 Dose: 80 mg Documented by: Resident Activity Tracking Resident Involvement: Resident Care Provided Care Provided: Adult [facility] Medicine
[2020-04-08] MEDS: MoRPHine SULFATE 2 MG/ML CARP IV PRN ×2 (17:41→22:29)
[2020-04-08] MEDS: POLYETHYLENE (MIRALAX) 17 GM PACK PO PRN (18:16)
[2020-04-09] MEDS: HYDROCODONE/ACETAMOPHEN 5/325MG TAB PO PRN ×5 (03:40→23:40)
[2020-04-09] MEDS: PANTOprazole 40 MG in DEXTROSE 5% 100 ML IV SCH ×5 (03:40→23:39)
[2020-04-09 06:11] LABS: Basophils # (auto) 0.02 K/uL (0-0.2); Basophils % (auto) 0.5 %; Eosinophils % (auto) 9.7 %; Hematocrit (blood only) 28.2 % (37-47); Hemoglobin 9.2 g/dL (12.0-16.0); Immature Granulocytes # (auto) 0.01 K/uL (0.00-0.02); Immature Granulocytes % (auto) 0.2 %; Lymphocytes # (auto) 0.92 K/uL (1.2-3.4); Lymphocytes % (auto) 22.2 %; Mean Corpuscular Hemoglobin 25.3 pg (25-34); Mean Corpuscular Hgb Conc 32.6 g/dL (32-36); Mean Corpuscular Volume 77.7 fL (80-100); Mean Platelet Volume 10.6 fL (7.4-10.4); Monocytes # (auto) 0.54 K/uL (0.11-0.59); Neutrophils # (auto) 2.25 K/uL (1.4-6.5); Neutrophils % (auto) 54.4 %; Platelet Count 270 K/uL (130-400); RDW Standard Deviation 56.5 fL (36.4-46.3); Red Blood Count 3.63 M/uL (4.2-5.4); White Blood Count 4.14 K/uL (4.8-10.8)
[2020-04-09 06:39] LABS: BUN Creatinine Ratio 5.9 (10-20); Calcium 8.7 mg/dl (8.5-10.1); Creatinine Clr Calc Pharmacy 129.3 ml/min; Est GFR (African American) 125.3; Est GFR (Non-African American) 108.1; Potassium 3.8 mmol/L (3.5-5.1)
[2020-04-09 06:51] LABS: Anisocytosis Present
--- NOTE | 2020-04-09 07:07 | Surgery Progress Note ---
Date of Service April 09, 2020 Assessment & Plan (1) Bowel perforation: Patient is 5 days postop repair of perforated marginal ulcer from that point of view she appears to be doing fine she is tolerating a diet no real abdominal discomfort except she has pain in the right upper quadrant quite significant worsening from yesterday In the past she had a HIDA scan and ultrasound to evaluate for gallbladder disease and they were both negative On a clinical basis today I suspect that she may have acute cholecystitis we will proceed with ultrasound of the gallbladder at this time The patient also wishes to be maintained on some morphine since she does have some pain management issues and we will restart that If the ultrasound of the right upper quadrant is negative for any gallbladder issues and I think she will need a CAT scan to make sure that she does not have any fluid collection from the previous perforation of the gastrojejunal ulcer Ultrasound of the gallbladder did verify patient does have some sludge the wall is borderline thickened the patient has no white count at this time liver function tests are pending I am not sure if the dilated distended gallbladder is related the patient not eating for a few days rather than any acute cholecystitis that may be developing I will keep her off antibiotics at this time since her white count was normal We will discuss with you situation with Dr. Layne in the morning All this was discussed with the patient at 2:30 today Present on Admission?: Yes Admission and Anticipated Discharge Date Admission Date: April 04, 2020 Subjective Patient only complaint is right upper quadrant worse than yesterday She is able to tolerate liquids without any problem although she has not had any bowel movement yet Physical Exam Physical Exam: She is alert coherent uncomfortable when she moves around because of pain in right upper quadrant Abdominal exam the abdomen is benign incision is healing well the Reese drainage is serosanguineous nonbilious he has exquisite tenderness in the right upper quadrant Results & Data ([facility]) Vital Signs (Past 12 Hours) Vital Signs Temp Pulse Pulse Pulse Resp BP Pulse Ox 04/09/20 04:00 36.8 C 76 18 130/62 97 04/09/20 00:54 76 04/08/20 23:00 36.6 C 69 18 132/87 97 04/08/20 21:06 37.1 C 04/08/20 19:48 37.8 C H 73 18 143/82 H 97 PG Care Time/CCT Total # of Minutes Spent Total Time Spent with Patient: Total time spent is greater than 50% in coordination of care (as documented) at patient's floor/unit and/or counseling patient: Coding Level of Care Code None Diagnoses Bowel perforation K63.1
[2020-04-09] MEDS: hydroCHLOROthiazide 25 MG TAB PO SCH (08:38)
[2020-04-09] MEDS: SIMETHICONE 80 MG CHEW PO PRN ×3 (08:38→23:35)
[2020-04-09] MEDS: NICOTINE 21 MG/24 HR TDSY TD SCH (08:38)
[2020-04-09] MEDS: ENOXAPARIN INJ 40 MG/0.4 ML SYR SQ SCH (08:38)
--- NOTE | 2020-04-09 09:21 | Ultrasound Report ---
US gallbladder CLINICAL HISTORY: Severe right upper quadrant abdominal pain COMPARISON STUDY: CT scan performed April 03, 2020 FINDINGS: There was sludge within the gallbladder. The gallbladder was mildly distended. The wall is at the upp er limits of normal in diameter. No hepatic lesions were visualized. There is mild common bile duct dilatation (8 mm. The pancreas was nonvisualized. There is no right-sided hydronephrosis. There is a 2 cm right renal cyst. IMPRESSION: 1. Nondiagnostic evaluation of the pancreas 2. Mildly distended gallbladder which contains sludge. 3. Mild dilatation the common bile duct which measures 8 mm ACT 112: Negative or not required by law. Electronically signed by: Victor Hugo Garrido M.D. 04/09/2020 9:20 AM
[2020-04-09] MEDS: MoRPHine SULFATE 2 MG/ML CARP IV PRN ×3 (10:55→21:11)
[2020-04-09 12:57] LABS: Albumin Level 2.9 gm/dl (3.4-5.0); Bilirubin Direct 0.1 mg/dl (0-0.2); Bilirubin,Total 0.4 mg/dl (0.2-1); Total Protein 6.5 gm/dl (6.4-8.2)
[2020-04-09] MEDS ORDERED: ACETAMINOPHEN 325 MG TAB PO PRN (13:07)
--- NOTE | 2020-04-09 13:17 | Hospitalist Progress Note ---
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 Now with new RUQ pain. Bowel Perforation w/ Peritonitis status post ex lap and oversewing of the gastrojejunal anastomosis postop day #5 -Patient with a prior history of Will-en-Y gastrectomy with unknown ulceration presented to the hospital with complaints of abdominal pain, CT on admission noted free air in the left upper quadrant. Surgery was consulted and patient was taken for a ex lap and oversewing of the gastrojejunal anastomosis on 04/04/2020. Patient has done well in the immediate postoperative period. -S/P Ex Lap and Oversewing of the gastrojejunal anastomosis on 04/04/20 at midnight, POD#5 -Nasogastric tube was DC'd 04/06 to clears and then to full liquids. Due to the pain pt is experiencing she does not feel comfortable advancing her diet at this time, hopefully advance tomorrow -Continue IV Zosyn -Continue IV Zofran PRN nausea -Continue Protonix gtt until discharge -Continue Morphine 2mg q4h PRN severe pain (Dilaudid dc'd), PO [place] q4h PRN pain for moderate pain, PO Tylenol for mild pain -Routine postoperative care per surgery-- will continue her WADE drain to bulb suction while she is in the hospital RUQ Pain -worse today than yesterday -In Dec 2019 she had a HIDA scan and ultrasound to evaluate for gallbladder disease and they were both negative -Surgery recommendation: -GB U/S 04/09/20 showing: Mildly distended gallbladder which contains sludge. Mild dilatation the common bile duct which measures 8 mm -Consideration for CT to make sure no fluid collection from the previous perforation of the gastrojejunal ulcer -Lipase 59, Hepatic Function Panel including liver enzymes/T&D bili/alk phos WNL unremarkable DM2 -Diet controlled s/p will-en-y gastrojejunostomy -Continue SSI while inpatient HTN -Resumed PO HCTZ -Blood pressures appropriate GERD -Hold home Sucralfate and Omeprazole -Protonix gtt as above Tobacco Use -Had been smoking 2PPD until the last month since decreasing to 1PPD -Has had long discussion with patient in regards to Tobacco cessation. Patient agreeing, interested in Lozenges vs patch after discharge. Continue to educate that smoking will only prolong recovery -Continue Nicotine Patch PRN Hx PE, RLE DVT, Superior Mesenteric Vein Thrombosis -DVT prophylaxis started by surgical team 12 hours post op -Continue Lovenox 40mg QD FEN/GI: Full liquid diet DVT PPX: SCD, Lovenox Code Status: Full Dispo: PCU. PT recommend return home with home health PT at discharge. Patient will need follow-up with Dr. Layne in about 1.5 weeks. CM working on referral to [facility]. Admission and Anticipated Discharge Date Admission Date: April 04, 2020 Supervising Physician Co-Signing Physician Notes Resident Physician Supervision Note: I independently interviewed and examined the patient and verified the govea history and physical, reviewed labs and image studies, discussed the case with the resident Dr. Macdonald and agree with the findings and care plan. Subjective Patient found in chair this morning. No acute overnight events. Patient notes ongoing having some right upper quadrant abdominal pain related to her surgery. Patient tolerating p.o. intake full liquids, no nausea vomiting. No bowel movement yet but passing gas. Ambulate without issue. Review of Systems Review of Systems: All systems reviewed & are unremarkable except as noted in HPI & below Physical Exam Constitutional: WD/WN, vitals as above Eyes: PERRL, conjunctivae normal, anicteric sclerae ENMT: external ear and nose normal, oropharynx normal Respiratory: normal respiratory effort, lungs clear to auscultation Cardiovascular: RRR, no murmur, no edema Gastrointestinal (Abdomen): Inspection/Auscultation: + abdominal surgical incision (surgical site is clean dry and intact, WADE drain in place) Percussion/Palpation: + abdomen tender (tender to palpation in around the surgical site and RUQ) and abdomen soft; no guarding Skin: no rashes, warm and dry Psychiatric: A+Ox3, euthymic affect Results & Data Results & Data ([facility]) Vital Signs (Past 12 Hours) Vital Signs Temp Pulse Pulse Resp BP BP Pulse Ox 04/09/20 07:48 36.8 C 78 18 137/71 98 04/09/20 04:00 36.8 C 76 18 130/62 97 Laboratory Results Laboratory Results - last 24 hr 04/09/20 04/09/20 04/09/20 05:31 05:31 12:09 WBC 4.14 L RBC 3.63 L Hgb 9.2 L Hct 28.2 L MCV 77.7 L MCH 25.3 MCHC 32.6 RDW Std Deviation 56.5 H RDW Coeff of Keith 20.0 H Plt Count 270 MPV 10.6 H Immature Gran % (Auto) 0.2 Neut % (Auto) 54.4 Lymph % (Auto) 22.2 [place] % (Auto) 13.0 Eos % (Auto) 9.7 Baso % (Auto) 0.5 Neut # (Auto) 2.25 Lymph # (Auto) 0.92 L [place] # (Auto) 0.54 Eos # (Auto) 0.40 Baso # (Auto) 0.02 Immature Gran # (Auto) 0.01 Anisocytosis Present Sodium 141 Potassium 3.8 Chloride 108 H Carbon Dioxide 27 Anion Gap 6.0 BUN 3 L Creatinine 0.46 L Est Cr Clr Drug Dosing 129.3 Est GFR ( Amer) 125.3 Est GFR (Non-Af Amer) 108.1 BUN/Creatinine Ratio 5.9 L Glucose 92 Calcium 8.7 Total Bilirubin 0.4 Direct Bilirubin 0.1 AST 14 L ALT 17 Alkaline Phosphatase 89 Total Protein 6.5 Albumin 2.9 L Lipase 59 L Medications Administered Current Inpatient Medications Hydrocodone Bitart/Acetaminophen (Hydrocodone/Acetamophen 5/325mg Tab) 1 tab PO Q4H PRN PRN Reason: Pain Stop: 04/20/20 11:06 Last Admin: 04/09/20 08:38 Dose: 1 tab Documented by: Dextrose (Dextrose 50% 50 Ml Syringe) 25 - 50 ml IV UD PRN; Protocol PRN Reason: Hypoglycemia Protocol Stop: 05/04/20 05:02 Enoxaparin Sodium (Enoxaparin Inj 40 Mg/0.4 Ml Syr) 40 mg SQ QAM MINDY Stop: 05/04/20 11:59 Last Admin: 04/09/20 08:38 Dose: 40 mg Documented by: Glucagon (Glucagon For Inj 1 Mg Vial) 1 mg SQ UD PRN; Protocol PRN Reason: Hypoglycemia Protocol Stop: 05/04/20 05:02 Glucose (Glucose 10 Tabs/Tube) 4 - 8 tabs PO UD PRN; Protocol PRN Reason: Hypoglycemia Protocol Stop: 05/04/20 05:02 Glucose (Glucose 40% Gel 15 Gm Tube) 15 - 30 gm PO UD PRN; Protocol PRN Reason: Hypoglycemia Protocol Stop: 05/04/20 05:02 Hydrochlorothiazide (Hydrochlorothiazide 25 Mg Tab) 25 mg PO QAM [facility] Stop: 05/09/20 08:59 Last Admin: 04/09/20 08:38 Dose: 25 mg Documented by: Pantoprazole Sodium 40 mg/ (Dextrose) 100 mls @ 20 mls/hr IV Q5H [facility] Stop: 05/04/20 00:14 Last Admin: 04/09/20 08:38 Dose: 8 mg/hr, 20 mls/hr Documented by: Miscellaneous (Remove Nicoderm Patch) 1 ea N/A DAILY@0859 [facility] Stop: 05/05/20 08:58 Last Admin: 04/09/20 08:41 Dose: 1 ea Documented by: Miscellaneous (Carbohydrates For Hypoglycemia ) 15 - 30 gm PO UD PRN PRN Reason: Hypoglycemia Protocol Stop: 05/04/20 05:02 Morphine Sulfate (Morphine Sulfate 2 Mg/Ml Carp) 2 mg IV Q4H PRN PRN Reason: Pain Stop: 04/22/20 16:00 Last Admin: 04/09/20 10:55 Dose: 2 mg Documented by: Nicotine (Nicotine 21 Mg/24 Hr Tdsy) 21 mg [facility] Stop: 05/04/20 08:59 Last Admin: 04/09/20 08:38 Dose: 21 mg Documented by: Ondansetron HCl (Ondansetron Inj 2 Mg/Ml 2 Ml Vial) 4 mg IV Q6H PRN PRN Reason: Nausea Stop: 05/04/20 01:18 Last Admin: 04/05/20 19:59 Dose: 4 mg Documented by: Polyethylene Glycol (Polyethylene (Miralax) 17 Gm Pack) 17 gm PO DAILY PRN PRN Reason: Constipation Stop: 05/08/20 17:52 Last Admin: 04/08/20 18:16 Dose: 17 gm Documented by: Simethicone (Simethicone 80 Mg Chew) 80 mg PO Q6H PRN PRN Reason: Gas or Constipation Stop: 05/06/20 19:49 Last Admin: 04/09/20 08:38 Dose: 80 mg Documented by: Resident Activity Tracking Resident Involvement: Resident Care Provided Care Provided: Adult Hospital Medicine
[2020-04-09] MEDS ORDERED: hydrOXYzine HCl 25 MG TAB PO PRN (13:27)
[2020-04-09] MEDS ORDERED: MELATONIN 3 MG TAB PO PRN (13:27)
[2020-04-09] MEDS: POLYETHYLENE (MIRALAX) 17 GM PACK PO PRN (23:40)
[2020-04-10] MEDS: PANTOprazole 40 MG in DEXTROSE 5% 100 ML IV SCH ×2 (04:47→12:18)
[2020-04-10] MEDS: HYDROCODONE/ACETAMOPHEN 5/325MG TAB PO PRN ×2 (05:31→12:27)
[2020-04-10 06:03] LABS: Basophils # (auto) 0.02 K/uL (0-0.2); Basophils % (auto) 0.4 %; Eosinophils # (auto) 0.53 K/uL (0-0.5); Eosinophils % (auto) 10.6 %; Hematocrit (blood only) 32.5 % (37-47); Hemoglobin 10.5 g/dL (12.0-16.0); Immature Granulocytes # (auto) 0.01 K/uL (0.00-0.02); Immature Granulocytes % (auto) 0.2 %; Lymphocytes # (auto) 1.42 K/uL (1.2-3.4); Lymphocytes % (auto) 28.3 %; Mean Corpuscular Hemoglobin 24.9 pg (25-34); Mean Corpuscular Hgb Conc 32.3 g/dL (32-36); Mean Corpuscular Volume 77.2 fL (80-100); Mean Platelet Volume 10.5 fL (7.4-10.4); Monocytes # (auto) 0.69 K/uL (0.11-0.59); Monocytes % (auto) 13.7 %; Neutrophils # (auto) 2.35 K/uL (1.4-6.5); Neutrophils % (auto) 46.8 %; Platelet Count 334 K/uL (130-400); RDW Coefficient of Variation 19.9 % (11.5-14.5); RDW Standard Deviation 55.1 fL (36.4-46.3); Red Blood Count 4.21 M/uL (4.2-5.4); White Blood Count 5.02 K/uL (4.8-10.8)
[2020-04-10 06:28] LABS: BUN Creatinine Ratio 5.4 (10-20); Calcium 9.6 mg/dl (8.5-10.1); Creatinine Clr Calc Pharmacy 95.9 ml/min; Est GFR (African American) 113.6; Potassium 3.7 mmol/L (3.5-5.1)
--- NOTE | 2020-04-10 07:32 | Hospitalist Progress Note ---
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 Now with new RUQ pain. #Bowel Perforation w/ Peritonitis status post ex lap and oversewing of the gastrojejunal anastomosis postop day #6 Patient with a prior history of Will-en-Y gastrectomy with unknown ulceration presented to the hospital with complaints of abdominal pain, CT on admission noted free air in the left upper quadrant. Surgery was consulted and patient was taken for a ex lap and oversewing of the gastrojejunal anastomosis on 04/04/2020. Patient has done well in the immediate postoperative period. Nasogastric tube was DC'd 04/06 to clears and then to full liquids. -S/P Ex Lap and Oversewing of the gastrojejunal anastomosis on 04/04/20 at midnight, POD#6 -Advance Diet as toerated -Continue IV Zofran PRN nausea -Continue Protonix gtt until discharge -Continue Morphine 2mg q4h PRN severe pain (Dilaudid dc'd), PO [place] q4h PRN pain for moderate pain, PO Tylenol for mild pain -Routine postoperative care per surgery-- will continue her WADE drain to bulb suction while she is in the hospital #RUQ Pain In Dec 2019 she had a HIDA scan and ultrasound to evaluate for gallbladder disease and they were both negative. -Surgery consulted following the recommendations -GB U/S 04/09/20 showing: Mildly distended gallbladder which contains sludge. Mild dilatation the common bile duct which measures 8 mm -Lipase 59, Hepatic Function Panel including liver enzymes/T&D bili/alk phos WNL unremarkable -Consideration for CT to make sure no fluid collection from the previous perforation of the gastrojejunal ulcer -Management as above otherwise for now DM2 -Diet controlled s/p will-en-y gastrojejunostomy -Continue SSI while inpatient HTN -Resumed PO HCTZ -Blood pressures appropriate GERD -Hold home Sucralfate and Omeprazole -Protonix gtt as above Tobacco Use -Had been smoking 2PPD until the last month since decreasing to 1PPD -Has had long discussion with patient in regards to Tobacco cessation. Patient agreeing, interested in Lozenges vs patch after discharge. Continue to educate that smoking will only prolong recovery -Continue Nicotine Patch PRN Hx PE, RLE DVT, Superior Mesenteric Vein Thrombosis -DVT prophylaxis started by surgical team 12 hours post op -Continue Lovenox 40mg QD FEN/GI: Full liquid diet DVT PPX: SCD, Lovenox Code Status: Full Dispo: PCU. PT recommend return home with home health PT at discharge. Patient will need follow-up with Dr. Layne in about 1.5 weeks. CM working on referral to [facility]. Admission and Anticipated Discharge Date Admission Date: April 04, 2020 Results & Data Results & Data ([facility]) Vital Signs (Past 12 Hours) Vital Signs Temp Pulse Pulse Resp BP BP Pulse Ox 04/10/20 07:19 58 L 04/10/20 03:02 36.9 C 75 20 105/68 96 04/10/20 01:12 67 04/09/20 23:14 37.0 C 67 18 129/87 97 04/09/20 19:59 37.1 C 73 18 178/78 H 97
[2020-04-10] MEDS: SIMETHICONE 80 MG CHEW PO PRN (08:17)
[2020-04-10] MEDS: NICOTINE 21 MG/24 HR TDSY TD SCH (08:18)
[2020-04-10] MEDS: ENOXAPARIN INJ 40 MG/0.4 ML SYR SQ SCH (08:18)
[2020-04-10] MEDS: hydroCHLOROthiazide 25 MG TAB PO SCH (08:19)
[2020-04-10] MEDS: MoRPHine SULFATE 2 MG/ML CARP IV PRN (08:28)
--- NOTE | 2020-04-10 10:01 | Discharge Summary ---
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 Patient has had intermittent epigastric abdominal pain ongoing for several months. Pain became more severe this afternoon, radiating across entire abdomen and to left shoulder. She has nausea as well as dry heaving and chills. Denies CP/palpitations/SOB/cough/vomiting/diarrhea. No additional complaints at this time. On arrival to the ER she was afebrile, HD stable, NAD. Abdominal imaging with free air consistent with perforation. Patient in significant pain, 12/03 in severity Evaluated by General Surgery - plan for OR tonight ER Course: NSS x 2L, Fentanyl 50mcg x 2, Zofran 4mg x 1, Dilaudid 0.5mg x 1, Reglan 10mg x 1, Zosyn 4.5gm Admission Exam Per Admitting Provider General: patient in significant discomfort from abdominal pain, AA&O x 4 Skin: warm, dry, intact, no rashes or lesions HEENT: NC/AT, PERRL, EOMI, anicteric sclera, conjunctiva without injection, external ear normal to inspection and nontender, nares patent, moist mucus membranes, dentition intact, no oropharyngeal lesions, neck supple, trachea midline, no LAD, no thyromegaly, no JVD Heart: +S1/S2, regular, no m/r/g Lungs: equal air entry bilaterally, no rales/rhonchi/wheezes Abd: diminished bowel sounds, abdomen soft, diffusely tender with rebound and guarding Ext: warm, 2+ pulses in UE/LE bilaterally, no clubbing/cyanosis or edema Neuro: nonfocal, patient AA&O x 4, speech intact, no facial droop, moving all extremities on command with equal strength 5/5 Principal Diagnosis Bowel perforation with peritonitis status post ex lap and oversewing gastrojejunal anastomosis likely secondary to ulcer formation complicated by history of current smoker and diabetes Discharge Data Allergies Allergy/AdvReac Type Severity Reaction Status Date / Time pollen extracts Allergy Mild watery eyes Verified 04/03/20 22:10 Sulfa (Sulfonamide Allergy Unknown unknown Verified 04/03/20 22:10 Antibiotics) reaction happened in childhood levofloxacin [From Levaquin] AdvReac Severe tendon Verified 04/03/20 22:10 tearing codeine AdvReac Intermediate agitation, Verified 04/03/20 22:10 irritability NSAIDS (Non-Steroidal AdvReac Unknown advised to Verified 04/03/20 22:11 Anti-Inflamma avoid s/p gastric bypass Consultations 04/03/20 23:09 ED Decision to Admit Stat 04/04/20 01:19 Consult General Surgery Routine Procedures Performed Operation Date: 04/04/20 00:05 Actual Procedures p Exploratory laparotomy, Oversewing of Gastrojejunal anastomosis(Not Applicable) - Mook Layne MD Ordered Studies 04/03/20 21:06 CT abd pelvis IV con only Urgent 04/03/20 21:11 CT angio chest PE protocol Urgent 04/09/20 07:07 US gallbladder Urgent Hospital Course (1) Bowel perforation: Patient is a 59 year old female with PMHx Will-en-y gastrojejunostomy 2008 w/ ulceration noted 01/2020 on EGD, DM2, HTN, GERD, Tobacco use who presented initially with severe abdominal pain, found to have free air in the LUQ on Abdominal Pelvis CT and underwent emergent ex lap and oversewing of the gastrojejunal anastomosis on 04/04/20 at midnight. Now with new RUQ pain. #Bowel Perforation w/ Peritonitis status post ex lap and oversewing of the gastrojejunal anastomosis postop day #6 Patient with a prior history of Will-en-Y gastrectomy with unknown ulceration presented to the hospital with complaints of abdominal pain, CT on admission noted free air in the left upper quadrant. Surgery was consulted and patient was taken for a ex lap and oversewing of the gastrojejunal anastomosis on 04/04/2020. Patient has done well in the immediate postoperative period. Nasogastric tube was DC'd 04/06 to clears and then to full liquids. -S/P Ex Lap and Oversewing of the gastrojejunal anastomosis on 04/04/20 at midnight, POD#6 -Advance Diet as toerated -Continue IV Zofran PRN nausea -Continue Protonix gtt until discharge -Continue Morphine 2mg q4h PRN severe pain (Dilaudid dc'd), PO Intervale q4h PRN pain for moderate pain, PO Tylenol for mild pain -Routine postoperative care per surgery-- will continue her WADE drain to bulb suction while she is in the hospital #RUQ Pain In Dec 2019 she had a HIDA scan and ultrasound to evaluate for gallbladder disease and they were both negative. -Surgery consulted following the recommendations -GB U/S 04/09/20 showing: Mildly distended gallbladder which contains sludge. Mild dilatation the common bile duct which measures 8 mm -Lipase 59, Hepatic Function Panel including liver enzymes/T&D bili/alk phos WNL unremarkable -Consideration for CT to make sure no fluid collection from the previous perforation of the gastrojejunal ulcer -Management as above otherwise for now DM2 -Diet controlled s/p will-en-y gastrojejunostomy -Continue SSI while inpatient HTN -Resumed PO HCTZ -Blood pressures appropriate GERD -Hold home Sucralfate and Omeprazole -Protonix gtt as above Tobacco Use -Had been smoking 2PPD until the last month since decreasing to 1PPD -Has had long discussion with patient in regards to Tobacco cessation. Patient agreeing, interested in Lozenges vs patch after discharge. Continue to educate that smoking will only prolong recovery -Continue Nicotine Patch PRN Hx PE, RLE DVT, Superior Mesenteric Vein Thrombosis -DVT prophylaxis started by surgical team 12 hours post op -Continue Lovenox 40mg QD FEN/GI: Full liquid diet DVT PPX: SCD, Lovenox Code Status: Full Dispo: PCU. PT recommend return home with home health PT at discharge. Patient will need follow-up with Dr. Layne in about 1.5 weeks. CM working on referral to [facility]. Total Time Total Time Spent Total Time Spent (In Minutes): 49 Discharge Plan Discharge Items Patient Disposition: Home - Home Health Services Reason For Visit: BOWEL PERFORATION Discharge Diagnosis: Bowel perforation with peritonitis status post ex lap and oversewing gastrojejunal anastomosis likely secondary to ulcer formation complicated by history of current smoker and diabetes Activity: Per Instructions section Non-emergency contact: Primary Care Provider and Surgeon Call non-emergency contact if: you have any medication questions, your pain is not controlled, your pain is unusual for you and your temperature is above 101.5 Follow-up/Referrals: Sonya Ruiz MD [Primary Care Provider] - Diet: Low Fiber Addtl Attending Provider Instructions: Care instructions: You were admitted to [facility] for treatment of bowel perforation. While hospitalized you had an exploratory laparotomy performed with oversewing of the gastrojejunal anastomosis. She tolerated the procedure w ell, and were monitored in recovery. You are provided with routine postoperative care, pain control, IV antibiotics and monitored while you make your postoperative milestones. Towards the end of your hospital stay you endorsing right upper quadrant pain, this was evaluated with a gallbladder ultrasound demonstrating gallbladder sludge. As explained you by your surgeon is likely a result of not eating for a number of days. Expect your symptoms of right upper quadrant pain, and the gallbladder sludge resolved as you are diet normalizes. During admission we discussed the absolute importance of smoking cessation and how smoking likely led to your current presentation. We discussed numerous strategies including removing all paraphernalia, avoiding social situations, and or home situations where he used to smoke. We discussed the potential benefits of smoking cessation aids such as lozenges and gums. I believe you have elected to pursue the patch for the time being. We wish you the utmost excessively draining to quit smoking, I did touch some tobacco cessation information to this document. Also please do not hesitate to contact the quit line should you need any further assistance. A discharge summary will be sent to your primary care physician to ensure continuity of care. Please bring this discharge summary with you to your next office appointment so that your provider can review it at that time. Follow-up appointments: - Keep all your follow-up appointments as already scheduled. If you cannot make an appointment, notify your provider. - Please call to request a follow-up appointment with your primary care physician within one week of discharge. Please let us know if you are unable to obtain an appointment Follow-up labs: - Please go to a lab nearest you and obtain the requested lab work. Please have this completed at least 3 hours before your doctor's appointment (or the day before your appointment if possible). Medications: - Your medication list has been reviewed and reconciled upon discharge to ensure accuracy and continuity of care. - You are provided with a list of all your current medications at this time. Please review this list closely and make note of any changes. - Please take all of your medications exactly as prescribed. - Tell your primary care provider if you cannot afford your medications. - Call your primary care provider if you are having any side effects or any other problems. - Call your primary care provider before taking any over the counter medications or supplements, including herbals and vitamins, because some of these may interact with your current medications and/or make your symptoms worse. Symptoms: Please call your primary care provider for symptoms including, but not limited to: fevers (temperatures greater than 100.4), chills, intractable nausea or vomiting, diarrhea, rash, shortness of breath, bleeding, pain, or if you experience any worsening of the symptoms that brought you to the hospital. For EMERGENCY and VERY SERIOUS health-related issues, such as chest pain, shortness of breath, or sudden onset of the symptoms that brought you to the hospital, you may need to call 911 or go directly to the Emergency Room It has been our privilege to take care of you during your hospital stay. And Above All Else Feel Better! Best Wishes, Bobby Licea MD PGY2 Resident, Family & Community Medicine [facility] - [address], [address] MC: [place] [address] Addtl Rabbit Breeder Provider Instructions: GENERAL SURGERY DISCHARGE INSTRUCTIONS: DIET: * Soft (BRAT) diet recommended for about 2 weeks. * You will need to avoid any carbonated beverages * Avoid spicy foods, acidic foods, caffeine, tomato based products in excess as these foods increase acid production in your stomach. ACTIVITY RECOMMENDATIONS: * No strenuous activity until cleared by surgeon. Walk as much as possible however to prevent blood clots from forming in your legs. * No heavy lifting (>10 lbs.) for 6 weeks. SPECIAL CARE INSTRUCTIONS: * May shower. Let water run over area and pat dry. * Surgical hal will be removed in office. * Call the surgeon's office with any questions or concerns - (ex. temperature higher than 101 degrees F, excessive bleeding or pain). MEDICATIONS: Resume previous medications unless instructed otherwise by your surgeon. * Intervale 1 tablet every 4 hours, as needed for pain * Avoid any NSAIDs (Ibuprofen, advil, aspirin etc, given gastric bypass, ulcer, and perforation) * May take extra strength Tylenol as needed for mild pain -650 mg every 6 hours as needed * You will need to take antacid medication twice a day until instructed otherwise OTHER RECOMMENDATIONS: * Highly encouraged to quit smoking given the ulcer perforation. Smoking will delay healing and puts you at increased risk for recurrent ulcer formation. FOLLOW UP VISIT: If not already scheduled, please call the office to schedule a follow-up appointment with Dr. Layne for the week of 04/17/2020 for staple removal and follow-up. Office number Pending Studies at Discharge: No Stand-Alone Forms: My [facility], Smoking Cessation Medications and DC Order Prescriptions: New hydrocodone-acetaminophen 5-325 mg tablet 1 tab PO Q4H PRN (Reason: pain) Qty: 10 RF: 0 nicotine [Nicoderm CQ] 21 mg/24 hr Patch 24 Hour 21 mg transdermal QAM 30 Days Qty: 28 RF: 0 Continued calcium carbonate [Calcium 600] 600 mg calcium (1,500 mg) tablet 600 mg PO QAM RF: 0 sucralfate [Carafate] 100 mg/mL suspension 5 ml PO QID Qty: 420 RF: 2 omeprazole 40 mg capsule,delayed release(DR/EC) 40 mg PO BID 30 Days Qty: 60 RF: 2 cholecalciferol (vitamin D3) [Vitamin D3] 5,000 unit Tablet 5,000 unit PO QAM RF: 0 biotin 1,000 mcg Tablet,Chewable 1,000 mcg PO QAM RF: 0 diphenhydramine HCl [Benadryl] 25 mg Capsule 25 mg PO TID PRN (Reason: Allergy Symptoms) RF: 0 hydrochlorothiazide 25 mg tablet 25 mg PO QAM RF: 0 acetaminophen [Mapap (acetaminophen)] 325 mg Tablet 650 mg PO Q4H PRN (Reason: pain) Qty: 30 RF: 0 Discharge Orders: Discharge Order (Routine); Ordered 04/10/20 Ordered By: Bobby Gonsales/Other Patient Handouts: Quit-Smoking Tools Help for ..., Getting Support for Quitting Smoking, Coping with Smoking Withdrawal, Staying Smoke-Free, Smoking and Diabetes, ED How to Quit Smoking Admission Data Admit Date/Time: 04/04/20 03:30 Attending Provider: Min Wild Admit Provider: Kathrine Licea Primary Care Provider: Sonya Ruiz Other Providers: Kathrine Licea ; Mook Layne ; Sarah Jovel Resident Activity Tracking Resident Involvement: Resident Care Provided Care Provided: Adult Hospital Medicine
--- NOTE | 2020-04-10 13:59 | Surgery Progress Note ---
Date of Service April 10, 2020 Assessment & Plan (1) Bowel perforation: POD # 6 s/p ex lap, repair of perforated marginal ulcer - afebrile, vss - mango with clear serous output - Upper GI study without leak - Gallbladder ultrasound showing biliary sludge no signs of acute cholecystitis Plan: okay for discharge from surgical standpoint discontinue drain prior to discharge PO [place] sent to pharmacy prn pain Will need PO Protonix BID on discharge, stop omeprazole f/u surgery office for staple removal and postop visit discharge instructions reviewed Dr. Layne has seen and examined pt, agrees with above. Admission and Anticipated Discharge Date Admission Date: April 04, 2020 Subjective Patient feeling well today No nausea or vomiting had 5 bowel movements since last evening Tolerated diet well ready to go home Physical Exam Constitutional: WD/WN, vitals as above Respiratory: normal respiratory effort; no respiratory distress and no labored breathing Gastrointestinal (Abdomen): Inspection/Auscultation: abdomen normal to inspection and + abdominal surgical drain present (serous output); abdomen not distended Percussion/Palpation: + abdomen tender (RUQ on deep palpation) Skin: no rashes, warm and dry Psychiatric: A+Ox3, euthymic affect Results & Data ([facility]) Vital Signs (Past 12 Hours) Vital Signs Temp Pulse Pulse Pulse Resp BP BP 04/10/20 12:49 37.5 C 67 79 16 124/68 129/87 04/10/20 11:41 37.5 C 79 16 124/68 04/10/20 08:13 37.0 C 67 18 132/76 04/10/20 07:19 58 L 04/10/20 03:02 36.9 C 75 20 105/68 Pulse Ox 04/10/20 12:49 98 04/10/20 11:41 98 04/10/20 08:13 97 04/10/20 07:19 04/10/20 03:02 96
--- NOTE | 2020-04-10 17:34 | Billing Data ---
Date of Service April 10, 2020 Coding Level of Care Code D/C Day Management <30 mins
== END 2020-04-10 14:45 | disposition home health service (06) | DRG 326 ==
LOC: ED 20:42 → OR 04-04 00:55 → SUATTDRO 04-04 03:30 → 2S 04-04 03:30 → 2N 04-07 17:08

== ENCOUNTER 2025-01-24 08:35 | Inpatient (IN) ==
--- NOTE | 2024-12-31 09:38 | PAT Medication Instructions ---
Medication Instructions Date of Service December 31, 2024 Home Medications Medication Instructions Recorded acetaminophen 325 mg tablet (Mapap 650 mg (2 x 325 mg) PO Q4H PRN 03/12/19 (acetaminophen)) pain #30 tabs romosozumab-aqqg 210 mg/2.34 210 mg (2.34 mL) subcut ONCE #2.34 03/12/24 mL(105 mg/1.17 mL x2)subcutaneous mL syringe (Evenity) nicotine 21 mg/24 hr daily 1 patch transdermal Q24H #28 ea 05/17/24 transdermal patch (Nicoderm CQ) cyclobenzaprine 5 mg tablet 5 - 10 mg (1 - 2 x 5 mg) PO HS PRN 09/20/24 muscle spasm #30 tabs calcium carbonate (Calcium 600) 600 mg PO QAM biotin 1,000 mcg chewable tablet 1,000 mcg PO QAM diphenhydramine HCl 25 mg capsule (Benadryl) 25 mg PO TID PRN Allergy Symptoms acetaminophen 325 mg tablet (Mapap (acetaminophen)) 650 mg (2 x 325 mg) PO Q4H PRN pain cetirizine 10 mg tablet (Zyrtec) 10 mg PO QAM PRN allergies pantoprazole 40 mg tablet,delayed release (Protonix) 40 mg PO BID multivitamin 1 tab PO QAM Medical Marijuana 1 dose inhalation UD romosozumab-aqqg 210 mg/2.34 mL(105 mg/1.17 mL x2)subcutaneous syringe (Evenity) 210 mg (2.34 mL) subcut ONCE nicotine 21 mg/24 hr daily transdermal patch (Nicoderm CQ) 1 patch transdermal Q24H cyclobenzaprine 5 mg tablet 5 - 10 mg (1 - 2 x 5 mg) PO HS PRN muscle spasm cholecalciferol (vitamin D3) 125 mcg (5,000 unit) capsule 125 mcg PO QAM cyanocobalamin (vitamin B-12) 1,000 mcg sublingual tablet 1,000 mcg sublingual QAM Continue as directed nicotine 21 mg/24 hr daily transdermal patch (Nicoderm CQ) 1 patch transdermal Q24H (Avoid placement near surgery site prior to surgery) ASK your surgeon for instructions romosozumab-aqqg 210 mg/2.34 mL(105 mg/1.17 mL x2)subcutaneous syringe (Evenity) 210 mg (2.34 mL) subcut ONCE DO NOT take the morning of surgery calcium carbonate (Calcium 600) 600 mg PO QAM biotin 1,000 mcg chewable tablet 1,000 mcg PO QAM cetirizine 10 mg tablet (Zyrtec) 10 mg PO QAM PRN allergies multivitamin 1 tab PO QAM Medical Marijuana 1 dose inhalation UD cholecalciferol (vitamin D3) 125 mcg (5,000 unit) capsule 125 mcg PO QAM cyanocobalamin (vitamin B-12) 1,000 mcg sublingual tablet 1,000 mcg sublingual QAM Take morning of surgery With a small sip of water, OTHERWISE NOTHING TO EAT OR DRINK AFTER MIDNIGHT: acetaminophen 325 mg tablet (Mapap (acetaminophen)) 650 mg (2 x 325 mg) PO Q4H PRN pain (if needed) pantoprazole 40 mg tablet,delayed release (Protonix) 40 mg PO BID Take evening before surgery diphenhydramine HCl 25 mg capsule (Benadryl) 25 mg PO TID PRN Allergy Symptoms (if needed) acetaminophen 325 mg tablet (Mapap (acetaminophen)) 650 mg (2 x 325 mg) PO Q4H PRN pain (if needed) cetirizine 10 mg tablet (Zyrtec) 10 mg PO QAM PRN allergies (if needed) pantoprazole 40 mg tablet,delayed release (Protonix) 40 mg PO BID cyclobenzaprine 5 mg tablet 5 - 10 mg (1 - 2 x 5 mg) PO HS PRN muscle spasm (if needed) Other Notes If you have any questions please call us at [phone] or [phone] or [phone] or [phone]
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
[2025-01-24] MEDS: LR 60ML/HR IV SCH (09:24)
[2025-01-24] MEDS: ACETAMINOPHEN 500 MG TAB PO SCH (09:24)
[2025-01-24] MEDS: GABAPENTIN 300 MG CAP PO SCH (09:24)
[2025-01-24] MEDS: LR 15ML/HR IV SCH (09:24)
[2025-01-24] MEDS ORDERED: MIDAZOLAM HCL 1 MG/ML 2ML VIAL ONE (09:52)
[2025-01-24] MEDS ORDERED: ROCURONIUM BROMIDE 10 MG/ML 5 ML VIAL IV ONE ×2 (09:54→11:25)
[2025-01-24] MEDS ORDERED: ATROPINE SULFATE 0.1 MG/ML 10ML SYR IV PRN (09:59)
[2025-01-24] MEDS ORDERED: ONDANSETRON INJ 2 MG/ML 2 ML VIAL IV PRN ×2 (09:59→15:04)
[2025-01-24] MEDS ORDERED: PROPOFOL IV EMULSION 10 MG/ML 20 ML VIAL IV ONE (10:00)
[2025-01-24] MEDS ORDERED: LIDOCAINE 2% 2 ML VIAL/AMP(20MG/ML) INFIL ONE (10:01)
[2025-01-24] MEDS ORDERED: SUGAMMADEX SODIUM 200 MG/2 ML VIAL IV ONE (10:11)
--- NOTE | 2025-01-24 10:16 | History & Physical Bridge Note ---
Date of Service January 24, 2025 History & Physical Bridge Note I have examined the patient, reviewed the History & Physical and in the interval since the performance of the History & Physical I have noted the following changes of clinical significance: no changes noted
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
[2025-01-24] MEDS ORDERED: PHENYLEPHRINE 100MCG/ML 5ML SYR ONE (11:26)
[2025-01-24] MEDS ORDERED: PROMETHAZINE HCL INJ 25 MG/ML 1 ML VIAL ONE (11:26)
[2025-01-24] MEDS ORDERED: ePHEDrine sulfate 50 MG/5 ML SYR ONE (11:36)
[2025-01-24] MEDS: BUPIVACAINE/EPINEPHRINE 0.25% 1:200,000 30 ML VIAL ONE (11:56)
[2025-01-24] MEDS: ceFAZolin 330 MG/ML 1 GM VIAL ONE (11:57)
[2025-01-24] MEDS ORDERED: KETAMINE HCL 10MG/ML SYR ONE (12:09)
[2025-01-24] MEDS ORDERED: DEXAMETHASONE SOD INJ 4 MG/ML VIAL ONE (12:36)
[2025-01-24] MEDS ORDERED: ONDANSETRON INJ 2 MG/ML 2 ML VIAL ONE (12:36)
--- NOTE | 2025-01-24 12:47 | Operative Report ---
Post Operative Report Pre & Post Diagnosis Operation Date: 01/24/25 10:05 Pre-Op Diagnosis: Lumbar spondylosis with radiculopathy Post-Op Diagnosis: Same I identified the patient and participated in the time-out.: Yes Procedure Operation Date: 01/24/25 10:05 Actual Procedures #1 decompression T12-L1 L1-L2 with bilateral medial facetectomies and foramin otomies. #2 posterior spinal fusion T12 L2. #3 placement posterior instrumentation T12-L1 with connectors at L2-L3. #4 interbody fusion L1-L2. #5 placement of Spira 8 x 22 mm at L1-L2. #6 placement of Proteus combined with Koros bone graft in the posterior lateral gutters and os design and interbody space. #7 application of versa wrap of the exposed dura. Surgeon David Weir, Technician Terminal And Repeater Itzel Meza Estimated Blood Loss 100 Findings Consistent with Post-Op Diagnosis Specimens None Indications This is a 64-year-old female who presents with above-mentioned diagnosis of failed course of nonoperative care is here for surgical invention. Description of Procedure Patient was met with identified informed consent obtained. Patient was then taken to the operative suite underwent ovation placed in prone position on the Lefty table atop the Mirza frame. All bony prominences well-padded eyes inspected to ensure no external pressure placed upon them. This point the thoracolumbar spine was prepped and draped in a normal sterile fashion. Sharp dissection with assistance of Bovie cautery performed down to and exposing the lamina transverse processes of T12-L1 with a sergio at L2-L3. I then prepared the sergio at L2-L3 clearing it of bone graft and placed 2 connectors on the sergio at L2- L3. I then performed a complete laminectomy of L1 with bilateral medial facetectomies and foraminotomies noting severe neuroforaminal compression particular on the left with atrophy of the root. I then formed a partial lami nectomy of T12 with bilateral medial facetectomies to address all subarticular stenosis. Pedicle screws were then placed in T12-L1 bilaterally with assistance of fluoroscopy. By way of transforaminal approach and left complete discectomy of L1-L2 was performed endplates corrected to subcortical bleeding bone and an 8 x 22 mm Spira cage filled with os design bone graft tapped in position. The pr oper size rods were then contoured and locked into position bilaterally. The transverse processes of T12 L1-L2 burred to subcortical bleeding bone. Koros combined with Proteus bone graft placement posterior gutters. Versa wrap placed over the exposed dura. 15 round WADE drain inserted. Incision was then closed with 1 Vicryl the fascia 2-0 Vicryl subcutaneously and 4 Monocryl for final skin closure. Steri-Strips and sterile dressing placed. Patient waken taken PACU stable condition. Please note Itzel Meza was present of the entire procedure about the patient positioning complex course of the surgery and final skin closure. I attest to the content of the Intraoperative Record and any orders documented therein. Any exceptions are noted below.
[2025-01-24] MEDS: FLOSEAL HEMOSTATIC MATRIX 10ML TOP ONE (12:48)
--- NOTE | 2025-01-24 12:56 | Fluoroscopy Report ---
FL lumbar spine 2-3V CLINICAL HISTORY: L1-L2 DECOMPRESSION AND FUSION COMPARISON STUDY: MR lumbar spine 11/26/2024 FLUOROSCOPY TIME: 16.8 seconds FLUOROSCOPY IMAGES: 3 EXPOSURE DOSE: 3.8640 mGy FINDINGS: Multilevel lumbar interbody sergio and screw fusion with single level discectomy, exact number ing is not definitive based on magnification of the images. No unexpected opaque foreign bodies ident ified. IMPRESSION: Fluoroscopic assistance as above. ACT 112: Negative or not required by law. Electronically signed by: Efrain Powers M.D. 01/24/2025 12:54 PM
[2025-01-24] MEDS: HYDROmorphone INJ 2 MG/ML SYR/VIAL IV PRN (13:20)
--- NOTE | 2025-01-24 14:20 | Anesthesiology Progress Note ---
Date of Service January 24, 2025 Anesthesia Post Procedure Vital Signs Vital Signs: Temp Pulse Resp BP Pulse Ox O2 Del Method O2 Flow Rate 01/24/25 14:15 36 C L 62 14 118/67 100 Nasal Cannula 2 01/24/25 14:05 68 14 124/70 100 Nasal Cannula 2 01/24/25 13:55 66 12 121/72 95 Nasal Cannula 2 01/24/25 13:45 70 16 125/77 100 Nasal Cannula 2 01/24/25 13:35 67 20 126/81 100 Oxymask 3 01/24/25 13:25 60 16 134/71 98 Oxymask 3 01/24/25 13:15 72 20 132/76 100 Oxymask 3 01/24/25 13:05 36.4 C L 70 16 132/76 100 Oxymask 6 01/24/25 09:00 37.1 C 66 18 122/75 98 Room Air Pain Intensity Back: Pain Intensity: 4 Transfer of Care Handoff Completed per policy Notes Mental Status: alert / awake / arousable Patient Amnestic to Procedure: Yes Nausea / Vomiting: adequately controlled Pain: adequately controlled Airway Patency, RR, SpO2: stable & adequate BP & HR: stable & adequate Hydration State: stable & adequate Anesthetic Complications: no major complications apparent
[2025-01-24] MEDS ORDERED: NALOXONE HCL 0.4 MG/1 ML VIAL/CARP IV PRN (15:04)
[2025-01-24] MEDS ORDERED: LORazepam Inj 0.5 MG in SYRINGE 0.25 ML IV PRN (15:04)
[2025-01-24] MEDS ORDERED: SOD PHOSPHATE/SOD BIPHOSPHATE ENEMA 132 ML BTL PR PRN (15:04)
[2025-01-24] MEDS ORDERED: ONDANSETRON 4 MG OD TAB PO PRN (15:04)
[2025-01-24] MEDS ORDERED: PROMETHAZINE 12.5 MG/50.5 ML BAG IV PRN (15:04)
[2025-01-24] MEDS ORDERED: ACETAMINOPHEN 1,000 MG/100 ML VIAL IV PRN (15:04)
[2025-01-24] MEDS ORDERED: MAGNESIUM HYDROXIDE SUSP 30 ML UDC PO PRN (15:04)
[2025-01-24] MEDS ORDERED: ACETAMINOPHEN 500 MG TAB PO PRN (15:04)
[2025-01-24] MEDS ORDERED: DO NOT ADMINISTER FLU VACCINE PRN (15:04)
[2025-01-24] MEDS ORDERED: diphenhydrAMINE Capsule 25 MG CAP PO PRN ×2 (15:04)
[2025-01-24] MEDS ORDERED: FAMOTIDINE 20 MG TAB PO PRN (15:04)
[2025-01-24] MEDS ORDERED: CETIRIZINE HCL 10 MG TABLET PO PRN (15:04)
[2025-01-24] MEDS ORDERED: ALUMINUM/MAGNESIUM SUSP 30 ML UDC PO PRN (15:04)
[2025-01-24] MEDS ORDERED: METOCLOPRAMIDE HCL INJ 5 MG/ML 2 ML VIAL IV PRN (15:04)
[2025-01-24] MEDS ORDERED: DO NOT ADMINISTER PNEUMOCOCCAL VACCINE PRN (15:04)
[2025-01-24] MEDS: HYDROmorphone INJ 2 MG/ML SYR/VIAL ONE (15:15)
[2025-01-24] MEDS ORDERED: MEDICAL MARIJUANA PO SCH (15:30)
--- NOTE | 2025-01-24 16:01 | Hospitalist Progress Note ---
Date of Service January 24, 2025 Assessment & Plan (1) Other spondylosis with radiculopathy, lumbar region: (2) Vitamin B12 deficiency due to intestinal malabsorption: (3) Osteoporosis: Plan #lumbar spondylosis with radiculopathy -doing well post op -per ortho/spine #DVT proph -per ortho/spine -GIO/SCDs #B12 deficiency -takes SL - thinks has been on it for a few years; most recent level was 263 suggesting she probably needs shots. repeat level since it's not clear how long she's been on SL - but then replace IM while here and would encourage to take IM as outpt if levels are still truly low despite SL replacement #osteoporosis -outpt management Admission and Anticipated Discharge Date Admission Date: January 24, 2025 Subjective seen post op no complaints doing well expresses no needs nursing expresses no needs confirmed wtih pt main chronic problems are b12 deficiency (takes SL due to driving for shots being difficult and cost of shots at home being impactful) and osteoporosis (sees rheum) Review of Systems Review of Systems: All systems reviewed & are unremarkable except as noted in HPI & below Physical Exam Physical Exam: gen [id number] pleasant nad heent nc at mmm breathing unlabored no accessory muscles good effort skin no rashes no pallor or icterus neuro no focal deficits Results & Data Results & Data Vital Signs (Past 12 Hours) Vital Signs Temp Pulse Pulse Resp BP BP Pulse Ox 01/24/25 15:36 98.1 F 67 16 119/68 92 01/24/25 15:00 98.2 F 67 16 119/48 L 92 01/24/25 14:30 65 16 111/64 100 01/24/25 14:15 96.8 F L 62 14 118/67 100 01/24/25 14:05 68 14 124/70 100 01/24/25 13:55 66 12 121/72 95 01/24/25 13:45 70 16 125/77 100 01/24/25 13:35 67 20 126/81 100 01/24/25 13:25 60 16 134/71 98 01/24/25 13:15 72 20 132/76 100 01/24/25 13:05 97.5 F L 70 16 132/76 100 01/24/25 09:00 98.8 F 66 18 122/75 98 O2 Del Method O2 Flow Rate 01/24/25 15:36 Room Air 01/24/25 15:00 Room Air 01/24/25 14:30 Nasal Cannula 2 01/24/25 14:15 Nasal Cannula 2 01/24/25 14:05 Nasal Cannula 2 01/24/25 13:55 Nasal Cannula 2 01/24/25 13:45 Nasal Cannula 2 01/24/25 13:35 Oxymask 3 01/24/25 13:25 Oxymask 3 01/24/25 13:15 Oxymask 3 01/24/25 13:05 Oxymask 6 01/24/25 09:00 Room Air PG Care Time/CCT Total # of Minutes Spent Total Time Spent with Patient: Total time spent is greater than 50% in coordination of care (as documented) at patient's floor/unit and/or counseling patient: Coding Level of Care Code 88783 SUB INP/OBS CARE MIN Diagnoses Other spondylosis with radiculopathy, lumbar region M47.26 Vitamin B12 deficiency due to intestinal malabsorption E53.8; K90.9 Osteoporosis, unspecified osteoporosis type, unspecified pathological fracture presence M81.0 Osteoporosis type: unspecified Presence of current pathological fracture: unspecified (3) Osteoporosis Osteoporosis type: unspecified Presence of current pathological fracture: unspecified Qualified Code(s): M81.0 - Age-related osteoporosis without current pathological fracture
[2025-01-24] MEDS: LACTATED RINGER'S 1,000 ML IV SCH (16:24)
[2025-01-24] MEDS: HYDROmorphone INJ 1 MG/ML SYRINGE IV PRN (16:33)
[2025-01-24] MEDS: NICOTINE 21 MG/24 HR TDSY TD SCH (17:20)
[2025-01-24] MEDS: DOCUSATE SODIUM/SENNA 50/8.6MG TAB PO SCH (20:48)
[2025-01-25] MEDS: COUGH DROP (SUGAR FREE) LOZ 24 LOZ/1 BOX BUCCAL ONE (00:31)
[2025-01-25] MEDS: LORazepam 0.5 MG TAB PO PRN (00:35)
[2025-01-25] MEDS: POLYETHYLENE (MIRALAX) 17 GM PACK PO SCH (05:29)
[2025-01-25 07:20] LABS: Hematocrit (blood only) 29.5 % (37.0-47.0); Hemoglobin 9.9 g/dL (12.0-16.0); Immature Granulocytes # (auto) 0.04 K/uL (0.01-0.20); Immature Granulocytes % (auto) 0.5 %; Mean Corpuscular Hemoglobin 33.3 pg (25.0-34.0); Mean Corpuscular Volume 99.3 fL (80.0-100.0); Platelet Count 174 K/uL (130-400); RDW Standard Deviation 46.5 fL (36.4-46.3); Red Blood Count 2.97 M/uL (4.20-5.40); White Blood Count 7.28 K/ul (4.8-10.8)
[2025-01-25 08:00] LABS: Anion Gap 3.0 (3-11); Blood Urea Nitrogen 9.0 mg/dl (6-23); Calcium 8.8 mg/dl (8.6-10.3); Carbon Dioxide 29.0 mmol/L (21-32); Chloride 105.0 mmol/L (98-107); Creatinine Clr Calc Pharmacy 82.8 ml/min; Glucose 134.0 mg/dl (70-99(Fasting)); Potassium 3.8 mmol/L (3.5-5.1); Sodium 137.0 mmol/L (136-145)
[2025-01-25] MEDS: REMOVE NICODERM PATCH SCH (08:00)
[2025-01-25] MEDS: dexAMETHasone 4 MG in SYRINGE 0 ML IV SCH (08:01)
[2025-01-25] MEDS: MULTIVITAMIN TAB PO SCH (08:08)
[2025-01-25] MEDS: CHOLECALCIFEROL 125 MCG (5,000 UNITS) TAB PO SCH (08:08)
[2025-01-25] MEDS: CYANOCOBALAMIN (B-12) 500 MCG TABLET PO SCH (08:08)
[2025-01-25] MEDS: CALCIUM CARBONATE 500 MG CHEWABLE TAB PO SCH (08:11)
[2025-01-25] MEDS ORDERED: NON-FORMULARY MEDICATION (Biotin 1,000 mcg Tablet,Chewable) PO SCH (09:00)
[2025-01-25] MEDS: ACETAMINOPHEN 1,000 MG/100 ML VIAL IV SCH (09:40)
[2025-01-25] MEDS: HYDROmorphone INJ 0.5 MG/0.5 ML SYR IV ONE (09:40)
--- NOTE | 2025-01-25 10:19 | Orthopedic Progress Note ---
Date of Service January 25, 2025 Assessment & Plan (1) Other spondylosis with radiculopathy, lumbar region: Plan: At this time we will continue physical therapy monitor WADE output hopefully discharge home the next few days. Admission and Anticipated Discharge Date Admission Date: January 24, 2025 Subjective Patient's leg symptoms are improved. Back pain is controlled. She has been up with physical therapy and ambulating halls. Physical Exam Physical Exam: Patient is up and ambulating about the room. She is good strength testing. Results & Data Vital Signs (Past 12 Hours) Vital Signs Temp Pulse Resp BP Pulse Ox O2 Del Method 01/25/25 08:29 36.8 C 70 18 101/68 97 Room Air 01/25/25 04:45 36.6 C 64 16 107/72 94 Room Air 01/24/25 23:06 36.9 C 64 16 118/68 98 Room Air
--- NOTE | 2025-01-25 11:15 | Hospitalist Progress Note ---
Date of Service January 25, 2025 Assessment & Plan (1) Other spondylosis with radiculopathy, lumbar region: (2) Vitamin B12 deficiency due to intestinal malabsorption: (3) Osteoporosis: Plan #lumbar spondylosis with radiculopathy - Pain inadequately controlled whenever I see herscheduled IV Tylenol, gave additional hydromorphone. She does have a wide array of PRNs available and has not utilized the regimen to its maximum; I would like to schedule an NSAID, but with her prior gastric bypass she has been advised to avoid. Continue to adjust medication as needed. Agree with patient being careful about what is prescribed at time of discharge . #Acute blood loss anemianot unexpected for the procedure. Hemodynamically stable, no indications for transfusion. Follow. #DVT proph -per ortho/spine -GIO/SCDs #B12 deficiency - Levels show adequate replacement with sublingual #osteoporosis -outpt management Admission and Anticipated Discharge Date Admission Date: January 24, 2025 Subjective when I saw her around 9 AM, she was complaining of uncontrolled pain. Notes she has had struggles with addiction in the past, and definitely wants to be careful about what she goes home on, but right now was requesting a higher intensity pain regimen. Otherwise no new complaints. Review of Systems Review of Systems: All systems reviewed & are unremarkable except as noted in HPI & below Physical Exam Physical Exam: In general she is awake alert oriented pleasant but does appear uncomfortableespecially with movement. Breathing unlabored no accessory muscle use good effort. Skin without rashes pallor or icterus. Neuro without focal deficits. Results & Data Results & Data Vital Signs (Past 12 Hours) Vital Signs Temp Pulse Resp BP Pulse Ox O2 Del Method 01/25/25 08:29 98.2 F 70 18 101/68 97 Room Air 01/25/25 04:45 97.9 F 64 16 107/72 94 Room Air PG Care Time/CCT Total # of Minutes Spent Total Time Spent with Patient: Total time spent is greater than 50% in coordination of care (as documented) at patient's floor/unit and/or counseling patient: Coding Level of Care Code 11640 SUB INP/OBS CARE 2/35MIN Diagnoses Other spondylosis with radiculopathy, lumbar region M47.26 Vitamin B12 deficiency due to intestinal malabsorption E53.8; K90.9 Osteoporosis, unspecified osteoporosis type, unspecified pathological fracture presence M81.0 Osteoporosis type: unspecified Presence of current pathological fracture: unspecified (3) Osteoporosis Osteoporosis type: unspecified Presence of current pathological fracture: unspecified Qualified Code(s): M81.0 - Age-related osteoporosis without current pathological fracture
[2025-01-26] MEDS: ACETAMINOPHEN 500 MG TAB PO PRN (02:23)
--- NOTE | 2025-01-26 08:24 | Orthopedic Progress Note ---
Date of Service January 26, 2025 Assessment & Plan (1) Other spondylosis with radiculopathy, lumbar region: Plan: Charles is postoperative day 2 status post T12-L2 decompression and fusion Marrying onto existing hardware. She is going to continue with physical th erapy. Continue with pain control. DVT prophylaxis is in the form teds and SCDs. Anticipate discharge home tomorrow. Admission and Anticipated Discharge Date Admission Date: January 24, 2025 Subjective Charles is postoperative day 2 status post T12-L2 decompression and fusion marrying onto existing hardware. She feels great. Has some incisional pain. No radicular leg pain. WADE drain output last shift was 80 cc. Yesterday in physical therapy ambulate 300 feet ++ the hallways. She has had a bowel movement. No new complaints. Review of Systems Review of Systems: All systems reviewed & are unremarkable except as noted in HPI & below Physical Exam Physical Exam: She is up and ambulatory independently around the room. She looks great. Alert and oriented x 3 Strength intact bilateral lower extremities Calf soft and nontender bilaterally Results & Data Vital Signs (Past 12 Hours) Vital Signs Temp Pulse Resp BP Pulse Ox O2 Del Method 01/25/25 22:13 37.2 C 68 16 93/55 L 98 Room Air
[2025-01-27 08:07] VITALS: BP 125/68; PULSE 62; RESP 18; TEMP 98.6; O2SAT 99
--- NOTE | 2025-01-27 08:43 | Discharge Summary ---
Date of Service January 27, 2025 Admission HPI Per Admitting Provider This is a 64-year-old female presents with chronic persistent back and leg pain after failing course of nonoperative care is here for surgical invention. Principal Diagnosis Lumbar spondylosis with radiculopathy Discharge Data Allergies Allergy/AdvReac Type Severity Reaction Status Date / Time pollen extracts Allergy Mild Watery eyes Verified 01/24/25 08:44 Sulfa (Sulfonamide Allergy Unknown Unknown Verified 01/24/25 08:44 Antibiotics) childhood reaction levofloxacin [From Levaquin] AdvReac Severe Tendon Verified 01/24/25 08:44 tearing codeine AdvReac Intermediate Agitation, Verified 01/24/25 08:44 irritability NSAIDS (Non-Steroidal AdvReac Unknown Advised to Verified 01/24/25 08:44 Anti-Inflamma avoid s/p gastric bypass Consultations 01/24/25 15:04 Consult Hospitalist Routine Procedures Performed Operation Date: 01/24/25 10:05 Actual Procedures p L1-L2 Decompression Fusion T12-L2(Not Applicable) - David Weir DO Ordered Studies 01/24/25 [place] lumbar spine 2-3V Routine Hospital Course (1) Other spondylosis with radiculopathy, lumbar region: Patient underwent lumbar decompression fusion tolerated well second orthopedic for postoperative. Postop patient progressed appropriately. Marked improvement in leg symptoms. Pain well-controlled. WADE drain decreasing. Extra strength testing. Subsidy discharged home. Discharge orders and instructions from the chart for further review. Total Time Total Time Spent Total Time Spent (In Minutes): 20 minutes Discharge Plan Discharge Items Patient Disposition: Home - Self-Care Reason For Visit: Foraminal Stenosis of Lumbar Region, Lumnosacral Discharge Diagnosis: Lumbar spondylosis with radiculopathy Activity: As commented below Non-emergency contact: Primary Care Provider Call non-emergency contact if: you have any medication questions Follow-up/Referrals: Sonya Ruiz MD [Primary Care Provider] - Diet: Regular Addtl Attending Provider Instructions: ACTIVITY RECOMMENDATIONS: SELF CARE INSTRUCTIONS AFTER THORACIC/LUMBAR FUSIONS 1. You may walk to your tolerance. It is good exercise for your legs and back. Expect some back and intermittent leg aches and pains. 2. You may perform "counter-top" level activities (make a sandwich, shonda with a project, etc.). 3. No bending or lifting of more than 10 pounds or back twisting of any nature (roll like a log when turning in bed). 4. You may ride in a car for 20-30 minutes at a time. No driving until after your first visit with your doctor. 5. Frequent changes of position and restricting sitting to 30 minutes at a time will help limit the amount of back spasms and stiffness you may experience. 6. You may discontinue the use of ambulatory aids (cane, crutches, etc.) once your strength and confidence allow. 7. You may principal solutions architect the shower and let water strike your incision when you arrive home at least once daily. Do not take a tub bath, sit in a hot tub or go into a swimming pool until after your first recheck in the office. 8. You may resume previous diet. SPECIAL CARE INSTRUCTIONS: VERY IMPORTANT TO READ AND REVIEW A. Your surgical incision has been closed with a cosmetic suture under the skin that will dissolve in about 6 weeks. In 14 days, you can use a pair of clean scissors and cut the suture that is left outside of the skin at the ends of your incision. 1. The small skin tapes can be removed 7 days after surgery if they have not fallen off by that point. 2. You may keep the wound open to air as much as possible to promote healing after post-op day number 5 unless told otherwise by your doctor. 3. If you think the wound looks like it is becoming infected (redness or worsening drainage) and/or you are experiencing fever, chill or worsening back pain and muscle spasms, contact the office so that we may evaluate you as soon as possible. B. Complications are uncommon, but please contact us if you have any signs or symptoms of: 1. wound infection (fever higher than 102.5 degrees F, redness, separation of wound, drainage, or increasing pain from the incision) 2. blood clots in legs (pain, swelling, redness and warmth in legs) 3. urinary tract infection (fever higher than 102.5 degrees F, burning upon urination or increased frequency of urination) 4. nerve problems (inability to walk on your toes or heels, numbness, loss of bowel or bladder control) 5. any other symptoms that concern you C. Please call the office at if you have any concerns or questions about your operation or recovery. D. No smoking! Smoking drastically decreases the chance of a solid fusion. E. Do not take any anti-inflammatory medications (Indocin, Advil, Motrin, Aspirin, Naprosyn, etc.) as these may inhibit the chance of a solid fusion. Tylenol is okay to take for pain. MANAGING PAIN AFTER SPINAL SURGERY 1. Narcotic medication is intended for short-term use and will be provided for surgical pain. Surgical pain usually lasts for a period of 4-6 weeks. Narcotic medication includes Percocet, Vicodin, Darvocet, Tylenol #3 or Lortab. 2. Longer-term pain is more appropriately treated with non-narcotic medication such as Tylenol ES. 3. Muscle spasm is not appropriately treated with narcotics. Muscle relaxers such as Soma, Flexeril or Skelaxin can be used along with Tylenol ES. 4. Remember that we all live with some "aches and pains". This is not unusual or uncommon after an injury or as we get older. a. Back pain is expected and may include muscle spasms for 4 to 6 weeks after surgery. The pain should gradually improve. If the pain worsens for no apparent reason, please contact the office. b. Intermittent leg pain may also be experienced and should not be concerned about unless it worsens for no apparent reason. If so, please contact the office. 5. We will provide appropriate medication within the normal guidelines of their prescribed use. We will also be very cautious and aware of potential abuse and extended duration of patients' medication needs. a. Pain medications are for your comfort and to assist with sleep and rest so that the tissue can heal. They are not provided in order to return to normal activity and should not be used through the day. To do so or worsening pain at night can result from ongoing tissue damage and development of tolerance to the prescribed medicine. 6. Please allow 2-3 days to process refills. Prescriptions will not be mailed but must be picked up at the office. FOLLOW UP VISIT: Keep your scheduled follow-up appointment. Any questions, please call the office at . Pending Studies at Discharge: No Stand-Alone Forms: My [employer], Smoking Cessation Medications and DC Order Prescriptions: New tramadol 50 mg tablet 50 mg PO Q6H PRN (Reason: pain, moderate) Qty: 30 0RF oxycodone 5 mg tablet 5 mg PO Q6H PRN (Reason: pain) Qty: 20 0RF Rx Instructions: Oxycodone for severe pain tramadol for moderate pain Continued calcium carbonate [Calcium 600] 600 mg calcium (1,500 mg) tablet 600 mg PO QAM pantoprazole [Protonix] 40 mg tablet,delayed release (DR/EC) 40 mg PO BID nicotine [Nicoderm CQ] 21 mg/24 hr patch 24 hour 1 patch transdermal Q24H Qty: 28 1RF Patient Comments: no longer taking 12/31/24 Medical Marijuana 1 dose inhalation UD cetirizine [Zyrtec] 10 mg tablet 10 mg PO QAM PRN (Reason: allergies) multivitamin Tablet 1 tab PO QAM Evenity 210mg/2.34mL ( 105mg/1.17mLx2) syringe 210 mg subcut ONCE Qty: 2.34 11RF Rx Instructions: inject monthly for 12 monthly doses cholecalciferol (vitamin D3) 125 mcg (5,000 unit) capsule 125 mcg PO QAM cyclobenzaprine 5 mg tablet 5 - 10 mg PO HS PRN (Reason: muscle spasm) Qty: 30 3RF biotin 1,000 mcg Tablet,Chewable 1,000 mcg PO QAM diphenhydramine HCl [Benadryl] 25 mg Capsule 25 mg PO TID PRN (Reason: Allergy Symptoms) acetaminophen [Mapap (acetaminophen)] 325 mg Tablet 650 mg PO Q4H PRN (Reason: pain) Qty: 30 0RF cyanocobalamin (vitamin B-12) 1,000 mcg Tablet, Sublingual 1,000 mcg SUBLINGUAL QAM Discharge Orders: Discharge Order (Routine); Ordered 01/27/25 Ordered By: David Weir Admission Data Admit Date/Time: 01/24/25 12:53 Attending Provider: David Weir Admit Provider: David Weir Primary Care Provider: Sonya Ruiz Other Providers: Cherie Linares; [employer]
[2025-01-27] MEDS: HYDROmorphone INJ 0.5 MG/0.5 ML SYR IV PRN (13:07)
== END 2025-01-27 14:08 | disposition home health service (06) | DRG 427 ==
LOC: ASU 08:35 → 3W 12:53